=== PATIENT | female | born 1935 ===

== ENCOUNTER 2017-08-18 06:02 | Inpatient (IN) | payer MEDICARE, MEDICAID ==
[2017-08-13 09:33] VITALS: BMI 26.6
[2017-08-18] MEDS ORDERED: Propofol 10 mg/ml Inj (20 ML) ONE (07:43)
[2017-08-18] MEDS ORDERED: ePHEDrine 50 mg/ml Inj ONE (07:44)
[2017-08-18] MEDS ORDERED: Morphine 1 mg/ml preservative-free Inj(Duramorph) ONE ×2 (07:44→10:05)
[2017-08-18] MEDS ORDERED: Succinylcholine 200 mg/10 ml Inj IV ONE (07:45)
[2017-08-18] MEDS ORDERED: Lactated Ringer's 1,000 ML IV ONE ×2 (08:15→10:00)
[2017-08-18] MEDS ORDERED: Sodium Chloride 0.9% 20 ML IV ONE (08:31)
[2017-08-18] MEDS ORDERED: EPINEPHrine 1 mg/ml (1:1000) Inj ONE (08:31)
[2017-08-18] MEDS ORDERED: ceFAZolin IV 1 gm in Dextrose 1 GM/50 ML BAG IVPB ONE ×3 (08:32→21:00)
[2017-08-18] MEDS ORDERED: Bacitracin Ointment 30 GM TUBE ONE (08:32)
[2017-08-18] MEDS ORDERED: Bupivacaine 0.5% Inj(30mL) ONE (08:32)
[2017-08-18] MEDS ORDERED: Lidocaine 1% Inj (20ml) ONE (08:32)
[2017-08-18] MEDS ORDERED: Sevoflurane - Inhalation Anesthetic Liq (250 ml) ONE (09:06)
[2017-08-18] MEDS ORDERED: Rocuronium 10 mg/ml (5 ml) ONE (09:42)
[2017-08-18] MEDS ORDERED: Bacitracin OINT 15GM TOP ONE (11:20)
[2017-08-18] MEDS ORDERED: Bupivacaine 0.5% 50 ML IJ ONE (11:20)
[2017-08-18] MEDS ORDERED: Morphine 1 mg/ml preservative-free Inj(Duramorph) IV ONE (11:20)
[2017-08-18] MEDS ORDERED: EPINEPHrine 1 mg/ml (1:1000) Inj IV ONE (11:20)
--- NOTE | 2017-08-18 11:42 | PCM.SURG1 ---
Surgeon's Initial Post Op Note - Surgeon's Notes Surgeon: Nel Abarca MD Program Arranger: Justin Campuzano MD; Choco Metzger PA-C Type of Anesthesia: General Endo, Spinal Pre-Operative Diagnosis: Right Hip severe Osteoarthritis Operative Findings: see op report Post-Operative Diagnosis: same as pre-op dx Operation Performed: Right total hip replacement Specimen/Specimens Removed: right hip femoral head, soft tissue Estimated Blood Loss: EBL {In ML}: 150 Date of Surgery/Procedure: 08/18/17 Time of Surgery/Procedure: 09:30
[2017-08-18] MEDS ORDERED: Lactated Ringer's 1,000 ML IV SCH (11:45)
[2017-08-18] MEDS ORDERED: Oxycodone/Acetaminophen 5/325 mg Tab PO PRN (11:50)
--- NOTE | 2017-08-18 12:23 | OP ---
PROCEDURE DATE: 08/18/2017 SURGEON: Nel Abarca MD GAS BRAZER: Choco Metzger PA-C PREOPERATIVE DIAGNOSIS: Right hip osteoarthritis. POSTOPERATIVE DIAGNOSIS: Right hip osteoarthritis. PROCEDURE: Right total hip replacement. IMPLANTS SIZE: Pete 54-mm Tritanium cup, a 10-degree polyethylene liner, size 6 high-offset stem, 36-mm ceramic head with +5 neck length. ANESTHESIA TYPE: Spinal and sedation. ESTIMATED BLOOD LOSS: 100 mL. COMPLICATIONS: None. HISTORY: Patient with long standing history of right hip pain refractory of conservative management. X-ray had shown significant loss of joint space. After the failure of extensive conservative management, I had offered the patient the treatment option of total hip replacement. I reviewed the risk and benefits of the surgery with the patient in detail. The risks include, but not limited to bleeding, infection, nerve vessel damage, continuous pain, blood loss, instability, dislocation, iatrogenic fracture, blood clots, need for further surgery, and even . The patient fully understood the risks and benefits and opted to proceed. Patient underwent necessary preoperative medical workup and once medically cleared, was scheduled for the procedure. DESCRIPTION OF PROCEDURE: On the day of the surgery, the patient was admitted to preoperative holding area. A laterality sheet was completed, confirming correct operative site. An informed consent was signed from the patient and the correct operative hip was marked. Patient was brought into the operating room table. She underwent sedation with spinal anesthesia. Afterwards, the patient was placed on the operating room table in lateral decubitus position. All the bony prominences were well padded and an axillary roll was also placed. The hip was draped and prepped in the standard sterile manner. Timeout was completed, confirming correct operative site. We proceeded with Navigation assisted total hip replacement. Two pins were placed in the iliac crest to attach the antenna. Additional checkpoint was placed on the greater trochanter and on top of the acetabular roof. We utilized a standard postero-lateral approach. Using a #10 blade, a skin incision was made. The soft tissue dissection was taken down until the IT band fascia was identified incised along it's fibers. The short external rotators were exposed and excised with the capsule. It was tagged wit heavy sutures preserved for a later repair. Afterwards, the hip was dislocated and proposed neck cut was made. The Acetabulum was exposed using standard retractors. The remnant of torn labrum was excised along with pulvinar. The acetabulum was reamed using motorized reamers to the size that provide adequate depth and coverage. Next, size 54 cup was securely fixed in to the acetabular socket in appropriate version and inclination. A polyethylene liner was secured in to the acetabular cup. The femoral canal was exposed using standard retractors. Using the box chisel, lateral femoral neck was removed. Femoral canal was broached up to size 6 stem, which provide a secure fit and adequate fill of femoral canal. A high-offset trial neck was secured onto the broach. Different trial heads with variable neck lengths were secured onto the trial neck. The hip was reduced and taken through extensive range of motion to test stability, soft tissue tensioning and leg length. It was noted the 36-mm head with +5 neck length provide adequate stability, soft tissue tensioning and length. Next, size 6 stem with high-offset was securely fixed into the femoral canal. Then, 36-mm ceramic head with +5 neck length was secured onto the neck of femoral stem. Hip was reduced and taken through final range of motion to assess for stability, soft tissue tensioning and leg length which was found to be satisfactory. Finally, the wound was copiously irrigated using pulse lavage solution. All loose bodies were removed. The short external rotators were repaired to greater trochanter using drill holes and heavy sutures. IT band fascia was tightly closed using heavy sutures and rest the wound was closed standard manner. Sterile dressing was applied. Patient was transferred to stretcher. Post-op instructions included posterior hip precautions. During this procedure, I was assisted by Choco Metzger PA-C, who assisted in positioning the patient on the operating room table as well as transferring the patient from the operating room table to the recovery room stretcher. In addition, Choco Metzger PA-C assisted me during the actual operative procedure by positioning, protecting critical neurovascular structures, exposure of the joint, and proper positioning of the implants. The presence of Choco Metzger PA-C as my operative assistant quality manager was medically necessary to ensure the utmost safety of the patient in the pre, intra-, and post-operative periods. Imran Rima, MD
--- NOTE | 2017-08-18 17:25 | CP.PCM.HP ---
History of Present Illness - History of Present Illness History of Present Illness: S/P R THR. 81 y/o F, Multiple chronic medical conditions with scheduled admission to [facility] for OR on DOA 08/18/17, had R THR 2nd to O/A , Patient had constant moderate and at times severe pain in that site that has been experienced for years and gradually increased, Pt was taking narcotics pain control, anti inflammatory drugs with some relief. Pt had CT R Hip at [facility] on May 2017, showing degenerative changes R hip. Worsening symptoms: Uncontrolled DM, weakness, anxiety. Aggravated factor: Difficulty to walk. Pt denied: Fever, chills, n/v/d, abdominal pain, CP, SOB, palpitations, numbness, sick contact. Present on Admission - Present on Admission Any Indicators Present on Admission: Yes History of Uncontrolled Diabetes: Yes Review of Systems - Constitutional Constitutional: Other (negative) - EENT Eyes: Other (negative) Ears: Other (negative) Nose/Mouth/Throat: Other (negative) - Cardiovascular Cardiovascular: Other (negative) - Respiratory Respiratory: Other (negative) - Gastrointestinal Gastrointestinal: Other (negative) - Genitourinary Genitourinary: Other (negative) - Musculoskeletal Musculoskeletal: Arthralgias, Back Pain Additional comments: Left Hip pain - Integumentary Integumentary: Other (negative) - Neurological Neurological: Other (negative) - Psychiatric Psychiatric: Anxiety - Endocrine Endocrine: Other (negative) - Hematologic/Lymphatic Hematologic: Other (negative) Past Patient History - Infectious Disease Hx of Infectious Diseases: None - Past Medical History & Family History Past Medical History?: Yes Pertinent Family History: one son OA with Hx of TKR - Past Social History Smoking Status: Never Smoked Alcohol: None Drugs: Denies Home Situation {Lives}: With Family - CARDIAC Hx Cardiac Disorders: Yes Hx Hypercholesterolemia: Yes (Patient can not take Statins due to myalgias.) Hx Hypertension: Yes - PULMONARY Hx Respiratory Disorders: No Other/Comment: Hx Allergic Rhinitis - NEUROLOGICAL HX Cerebrovascular Accident: Yes - HEENT Hx HEENT Problems: Yes Hx Cataracts: Yes - RENAL Hx Chronic Kidney Disease: No Other/Comment: chronic urinary infections - ENDOCRINE/METABOLIC Hx Endocrine Disorders: Yes Hx Diabetes Mellitus Type 2: Yes - HEMATOLOGICAL/ONCOLOGICAL Hx Blood Disorders: No Other/Comment: Arterial embolism L Subclavian L Braquial 06-17-16 ( Patient took Coumadin for 6 months ,then DC) - INTEGUMENTARY Hx Dermatological Problems: No - MUSCULOSKELETAL/RHEUMATOLOGICAL Hx Musculoskeletal Disorders: Yes Hx Arthritis: Yes Hx Back Pain: Yes Hx Osteoarthritis: Yes Hx Unsteady Gait: Yes Other/Comment: R HIP PAIN . MUSCLE WEAKNESS .LIMIT JOINT MOTION - GASTROINTESTINAL Hx Gastrointestinal Disorders: Yes Hx Gastritis: Yes (Hiatus Hernia) - GENITOURINARY/GYNECOLOGICAL Hx Genitourinary Disorders: Yes Hx Urinary Tract Infection: Yes - PSYCHIATRIC Hx Psychophysiologic Disorder: Yes Hx Anxiety: Yes Hx Emotional Abuse: No Hx Physical Abuse: No Hx Substance Use: No - SURGICAL HISTORY Hx Surgeries: Yes Hx Section: Yes (X2) Hx Cholecystectomy: Yes Other/Comment: ARTERIAL EMBOLECTOMY LEFT BRAQUIAL MAY 2016 , BLADDER SURGERY 2008 , REMOVAL CYST RIGHT KNEE - ANESTHESIA Hx Anesthesia: Yes Hx Anesthesia Reactions: No Hx Malignant Hyperthermia: No Has any member of the family had a problem w/ anesthesia?: No Meds Home Medications: Home Medication List Medication Instructions Recorded Confirmed Type Acetaminophen [Tylenol 325mg tab] 325 mg PO Q4 PRN tab 08/20/17 Rx Celecoxib [celeBREX] 100 mg PO Q12 cap 08/20/17 Rx Enoxaparin [Lovenox] 40 mg SC DAILY syr 08/20/17 Rx oxyCODONE [oxyCONTIN Extended 10 mg PO Q12 #10 tab 08/20/17 Rx Release Tab] oxyCODONE/Acetaminophen [Percocet 1 tab PO Q4 PRN #10 tab 08/20/17 Rx 5/325 mg Tab] Allergies/Adverse Reactions: Allergies Allergy/AdvReac Type Severity Reaction Status Date / Time No Known Allergies Allergy Verified 08/20/17 14:39 Physical Exam - Constitutional Appears: No Acute Distress - Head Exam Head Exam: NORMAL INSPECTION Additional comments: L hand weakness - Eye Exam Eye Exam: PERRL - ENT Exam ENT Exam: Normal Exam - Neck Exam Neck exam: Positive for: Normal Inspection - Respiratory Exam Respiratory Exam: NORMAL BREATHING PATTERN - Cardiovascular Exam Cardiovascular Exam: REGULAR RHYTHM, Systolic Murmur (1/6 LSB) - GI/Abdominal Exam GI & Abdominal Exam: Normal Bowel Sounds, Soft Additional comments: Lower midline surgical scar healed, small midline supraumbilical hernia - Extremities Exam Additional comments: R hip dressing in place.,neuromuscular status distal good , area of induration R hand palm with tenderness , L hand weakness - Back Exam Back exam: tenderness (L-S) - Neurological Exam Neurological exam: Alert, CN II-XII Intact, Oriented x3 Additional comments: neuromuscular status distal RLE good, weakness l hand - Psychiatric Exam Psychiatric exam: Anxious - Skin Skin Exam: Warm Results - Vital Signs Recent Vital Signs: Last Vital Signs Temp 97.4 F L 08/18/17 15:19 Pulse 70 08/18/17 15:00 Resp 20 08/18/17 15:19 BP 122/68 08/18/17 15:19 Pulse Ox 92 L 08/18/17 15:19 reviewed J.P. - Labs Result Diagrams: 08/20/17 05:35 08/20/17 07:30 Labs: Laboratory Results - last 24 hr 08/18/17 08/18/17 08/18/17 07:28 07:28 08:13 POC Glucose (mg/dL) 208 H Blood Type Cancelled O POSITIVE Antibody Screen Cancelled Negative Crossmatch See Detail BBK History Checked Cancelled Patient has bt 08/18/17 08/18/17 12:40 15:41 POC Glucose (mg/dL) 257 H 260 H Blood Type Antibody Screen Crossmatch BBK History Checked reviewed J.P. Assessment & Plan (1) Status post total hip replacement, right Status: Acute (2) Uncontrolled type II diabetes mellitus Status: Acute Priority: High (3) Lumbago Status: Chronic Priority: Medium (4) HTN (hypertension) Status: Chronic Priority: Medium (5) History of arterial embolism Status: Chronic Comment: Left upper extremity - Assessment and Plan (Free Text) Plan: F/U Abd/Pelv X-Ray. Continue Oxycodone, Humalog mix 75/25, Levemir and rest of medications, PT,OT eval. - Date & Time Date: 08/18/17 Time: 12:40
[2017-08-18] MEDS: Insulin Lispro Mix 75/25 100 units/ml (HumaLog) 10ml SC SCH (18:06)
[2017-08-18 18:49] LABS: HEMATOCRIT 31.5 % (34.0-47.0); MEAN CELL VOLUME 88.5 fl (81.0-99.0); MEAN CORPUSCULAR HEMOGLOBIN 28.6 pg (27.0-31.0); MEAN CORPUSCULAR HGB CONC 32.3 g/dL (33.0-37.0); RED CELL DISTRIBUTION WIDTH 14.6 % (11.5-14.5); WHITE BLOOD COUNT 12.1 K/uL (4.8-10.8)
[2017-08-18] MEDS: Insulin Detemir 100 Units/ml Inj SC SCH (22:24)
[2017-08-18] MEDS: Insulin Lispro (humaLOG) 100 Units/ml Inj SC SCH (22:24)
[2017-08-18] MEDS: oxyCODONE 10 mg ER Tab (oxyCONTIN) PO SCH (23:57)
[2017-08-19 06:44] LABS: BASO % 0.4 % (0.0-2.0); EOS # 0.1 K/uL (0.0-0.7); EOS % 1.1 % (0.0-4.0); HEMATOCRIT 29.3 % (34.0-47.0); LYMPH # 1.5 K/uL (1.0-4.3); LYMPH % 22.5 % (20.0-40.0); MEAN CELL VOLUME 88.6 fl (81.0-99.0); MEAN CORPUSCULAR HEMOGLOBIN 28.2 pg (27.0-31.0); MEAN CORPUSCULAR HGB CONC 31.9 g/dL (33.0-37.0); MEAN PLATELET VOLUME 7.5 fl (7.2-11.7); MONO # 0.6 K/uL (0.0-0.8); MONO % 9.9 % (0.0-10.0); NEUT # 4.3 K/uL (1.8-7.0); NEUT % 66.1 % (50.0-75.0); RED CELL DISTRIBUTION WIDTH 14.6 % (11.5-14.5); WHITE BLOOD COUNT 6.5 K/uL (4.8-10.8)
[2017-08-19 07:06] LABS: CALCIUM 7.6 mg/dL (8.4-10.2); POTASSIUM 4.6 MMOL/L (3.6-5.0)
--- NOTE | 2017-08-19 07:48 | PQF GENQUE ---
This form is a permanent part of the medical record 08/19/17 Dr. Sarah, H&P with [facility] template includes DM I and DM II. Accuchecks running 208-339. Treated with insulin. Would you please clarify if this is DM I or DM II and whether it is controlled or uncontrolled with Hyperglycemia. Clarification of your documentation is requested to better reflect the severity of illness and intensity of treatment of your patient. Indicators present [] Specify: [] [] Specify: [] [] Specify: [] [] Specify: [] Location in the medical record that reflects the above clinical findings: [] Treatment Provided: [] PHYSICIAN'S RESPONSE Based on your medical judgment of the clinical indicators outlined above please clarify the following: [] Practitioner response [] If unable to determine, please check the box, sign and date. Present On Admission (POA) Indicator: [] Present at the time of admission [] Not present at the time of admission [] Clinically Undetermined In responding to this query, please exercise your independent professional judgment. The fact that a question is asked does not imply that any particular answer is desired or expected. Thank you for your clarification on this documentation. If you have any questions please call:ext [phone] * Thank you, Teodora Renee RN [facility]
[2017-08-19] MEDS: Insulin Lispro (humaLOG) 100 Units/ml Inj SC SCH ×4 (07:50→21:25)
[2017-08-19] MEDS: Insulin Lispro Mix 75/25 100 units/ml (HumaLog) 10ml SC SCH ×3 (08:50→16:37)
[2017-08-19] MEDS: oxyCODONE 10 mg ER Tab (oxyCONTIN) PO SCH ×2 (08:58→21:31)
--- NOTE | 2017-08-19 09:14 | CP.PCM.PN ---
Subjective - Date & Time of Evaluation Date of Evaluation: 08/19/17 Time of Evaluation: 08:30 - Subjective Subjective: S/P RTHR POD#1 Pt seen and examined at bedside, comfortable in bed Pt c/o mild right hip pain Pt denies any SOB, chest pain, N/V/D, numbness/tingling RLE Objective - Vital Signs/Intake and Output Vital Signs (last 24 hours): Temp Pulse Resp BP Pulse Ox 97.5 F L 84 18 110/60 100 08/19/17 07:42 08/19/17 07:42 08/19/17 07:42 08/19/17 07:42 08/19/17 07:42 - Medications Medications: Current Medications Acetaminophen (Tylenol 325mg Tab) 325 mg PO Q4 PRN PRN Reason: pain1-3 Alprazolam (Xanax) 0.5 mg PO TID [facility] Last Admin: 08/19/17 08:58 Dose: 0.5 mg Aspirin (Ecotrin) 81 mg PO DAILY [facility] Last Admin: 08/19/17 08:49 Dose: 81 mg Celecoxib (Celebrex) 100 mg PO Q12 [facility] Last Admin: 08/19/17 08:49 Dose: 100 mg Enoxaparin Sodium (Lovenox) 40 mg SC DAILY [facility] PRN Reason: Protocol Gabapentin (Neurontin) 100 mg PO BID [facility] Last Admin: 08/19/17 08:49 Dose: 100 mg Home Med (Cholecalciferol (Vitamin D3) [Vitamin D3]) 50,000 units PO ASDIR [facility] Lactated Ringer's (Lactated Ringer's) 1,000 mls @ 100 mls/hr IV .Q10H [facility] Last Admin: 08/18/17 21:34 Dose: 100 mls/hr Insulin Detemir (Levemir) 12 units SC HS [facility] Last Admin: 08/18/17 22:24 Dose: 12 units Insulin Human Lispro (Humalog) 0 units SC ACHS [facility] PRN Reason: Protocol Last Admin: 08/19/17 07:50 Dose: 8 units Insulin Lispro Protam/Lispro Human (Humalog Mix 75/25) 15 units SC TID [facility] Last Admin: 08/19/17 08:50 Dose: 15 units Ketorolac Tromethamine (Toradol) 15 mg IM Q8 [facility] Stop: 08/20/17 09:01 Last Admin: 08/19/17 08:51 Dose: 15 mg Oxycodone HCl (Oxycontin Extended Release Tab) 10 mg PO Q12 [facility] Stop: 09/01/17 21:01 Last Admin: 08/19/17 08:58 Dose: 10 mg Oxycodone/Acetaminophen (Percocet 5/325 Mg Tab) 1 tab PO Q4 PRN PRN Reason: pain4-6 Stop: 08/21/17 11:51 - Labs Labs: 08/19/17 06:05 08/19/17 06:05 - Constitutional Appears: Well, No Acute Distress - Respiratory Exam Respiratory Exam: Clear to Ausculation Bilateral, NORMAL BREATHING PATTERN - Cardiovascular Exam Cardiovascular Exam: REGULAR RHYTHM, RRR - Extremities Exam Additional comments: Right hip: dressing C/D/I Calves soft and nontender b/l N/V intact distally No foot drop Distal pulses wnl Assessment and Plan - Assessment and Plan (Free Text) Assessment: 81 yo F s/p RTHR POD#1 Plan: Pain Control DVT ppx Incentive Spirometer PT/OT WBAT F/U labs Continue current managenment
--- NOTE | 2017-08-19 09:53 | RAD ---
PROCEDURE: Right Hip Radiographs. HISTORY: s/p RTHR COMPARISON: Right hip radiographs dated 08/10/2017. FINDINGS: The patient is status post total right hip arthroplasty with prosthetic components seen in good alignment. A small amount of expected air and fluid is seen adjacent to the surgical bed. Surgical hayley are present superficially. There is stable narrowing of the left hip with subchondral sclerosis, cystic change and osteophytosis. The sacroiliac joints are degenerative. Evaluation the sacrum is limited by overlying bowel gas and stool. The ilioischial and iliopectineal lines are smooth. The symphysis pubis is mildly degenerative. A calcified uterine fibroid is seen centrally. IMPRESSION: Status post right hip arthroplasty.
[2017-08-19] MEDS ORDERED: Sodium Chloride 0.45% 1,000 ML IV SCH (14:00)
--- NOTE | 2017-08-19 14:59 | CP.PCM.PN ---
Subjective - Date & Time of Evaluation Date of Evaluation: 08/19/17 Time of Evaluation: 11:20 - Subjective Subjective: F/U R THR PO D # 1 : Mild Post -Surgical Pain, R Hip, Patient on pain medication Objective - Vital Signs/Intake and Output Vital Signs (last 24 hours): Temp Pulse Resp BP Pulse Ox 97.5 F L 97 H 20 137/68 100 08/19/17 09:00 08/19/17 11:17 08/19/17 09:00 08/19/17 09:00 08/19/17 11:17 - Medications Medications: Current Medications Acetaminophen (Tylenol 325mg Tab) 325 mg PO Q4 PRN PRN Reason: pain1-3 Alprazolam (Xanax) 0.5 mg PO TID [facility] Last Admin: 08/19/17 08:58 Dose: 0.5 mg Aspirin (Ecotrin) 81 mg PO DAILY [facility] Last Admin: 08/19/17 08:49 Dose: 81 mg Celecoxib (Celebrex) 100 mg PO Q12 [facility] Last Admin: 08/19/17 08:49 Dose: 100 mg Enoxaparin Sodium (Lovenox) 40 mg SC DAILY [facility] PRN Reason: Protocol Gabapentin (Neurontin) 100 mg PO BID [facility] Last Admin: 08/19/17 08:49 Dose: 100 mg Home Med (Cholecalciferol (Vitamin D3) [Vitamin D3]) 50,000 units PO ASDIR [facility] Sodium Chloride (Sodium Chloride 0.45%) 1,000 mls @ 60 mls/hr IV .[id number] [facility] Stop: 08/20/17 13:57 Insulin Detemir (Levemir) 12 units SC HS [facility] Last Admin: 08/18/17 22:24 Dose: 12 units Insulin Human Lispro (Humalog) 0 units SC ACHS [facility] PRN Reason: Protocol Last Admin: 08/19/17 11:01 Dose: 12 units Insulin Lispro Protam/Lispro Human (Humalog Mix 75/25) 15 units SC TID [facility] Last Admin: 08/19/17 12:10 Dose: 15 units Ketorolac Tromethamine (Toradol) 15 mg IM Q8 [facility] Stop: 08/20/17 09:01 Last Admin: 08/19/17 08:51 Dose: 15 mg Oxycodone HCl (Oxycontin Extended Release Tab) 10 mg PO Q12 [facility] Stop: 09/01/17 21:01 Last Admin: 08/19/17 08:58 Dose: 10 mg Oxycodone/Acetaminophen (Percocet 5/325 Mg Tab) 1 tab PO Q4 PRN PRN Reason: pain4-6 Stop: 08/21/17 11:51 - Labs Labs: 08/19/17 06:05 08/19/17 06:05 - Constitutional Appears: No Acute Distress - Head Exam Head Exam: NORMAL INSPECTION - Eye Exam Eye Exam: PERRL - ENT Exam ENT Exam: Normal Exam - Neck Exam Neck Exam: Normal Inspection - Respiratory Exam Respiratory Exam: NORMAL BREATHING PATTERN - Cardiovascular Exam Cardiovascular Exam: REGULAR RHYTHM - GI/Abdominal Exam GI & Abdominal Exam: Soft, Normal Bowel Sounds Additional comments: Lower midline surgical scar healed. - Extremities Exam Additional comments: R hip dressing in place , mild tenderness , neuromuscular status distal good L hand area of induration R hand palm with tenderness - Back Exam Back Exam: tenderness (mild L-S) - Neurological Exam Neurological Exam: Alert, Oriented x3 Additional comments: neuromuscular status RLE good, weakness L hand - Psychiatric Exam Psychiatric exam: Anxious - Skin Skin Exam: Warm Assessment and Plan (1) Status post total hip replacement, left Status: Acute (2) Uncontrolled type II diabetes mellitus Status: Acute (3) HTN (hypertension) Status: Chronic (4) Lumbago Status: Chronic (5) Vitamin D deficiency Status: Acute (6) History of arterial embolism Status: Chronic - Assessment and Plan (Free Text) Plan: Continue current treatment , Oxycodone , Percocet , Insulin and rest of treatment , pain and BS control , PT
[2017-08-19] MEDS: Insulin Detemir 100 Units/ml Inj SC SCH (21:38)
[2017-08-19] MEDS: Enoxaparin 40 mg Syringe SC SCH (21:39)
[2017-08-20] MEDS ORDERED: Oxycodone/Acetaminophen 5/325 mg Tab PO ONE (01:04)
[2017-08-20 07:41] LABS: BASO % 0.3 % (0.0-2.0); EOS % 0.1 % (0.0-4.0); HEMATOCRIT 32.2 % (34.0-47.0); LYMPH # 1.2 K/uL (1.0-4.3); LYMPH % 10.7 % (20.0-40.0); MEAN CELL VOLUME 89.3 fl (81.0-99.0); MEAN CORPUSCULAR HEMOGLOBIN 27.9 pg (27.0-31.0); MEAN CORPUSCULAR HGB CONC 31.3 g/dL (33.0-37.0); MEAN PLATELET VOLUME 8.5 fl (7.2-11.7); MONO # 0.8 K/uL (0.0-0.8); MONO % 6.9 % (0.0-10.0); RED CELL DISTRIBUTION WIDTH 14.8 % (11.5-14.5)
[2017-08-20 07:48] VITALS: BP 100/58; PULSE 80; RESP 20; TEMP 98.2; O2SAT 98
[2017-08-20 08:27] LABS: CALCIUM 7.6 mg/dL (8.4-10.2); POTASSIUM 4.9 MMOL/L (3.6-5.0)
[2017-08-20] MEDS: Insulin Lispro (humaLOG) 100 Units/ml Inj SC SCH ×2 (09:14→12:00)
[2017-08-20] MEDS: Insulin Lispro Mix 75/25 100 units/ml (HumaLog) 10ml SC SCH ×3 (09:15→13:00)
[2017-08-20] MEDS: Enoxaparin 40 mg Syringe SC SCH (09:18)
[2017-08-20] MEDS: oxyCODONE 10 mg ER Tab (oxyCONTIN) PO SCH (09:34)
[2017-08-20] MEDS ORDERED: Sodium Chloride 0.45% 1,000 ML IV SCH (11:53)
--- NOTE | 2017-08-20 16:25 | CP.PCM.PN ---
Subjective - Date & Time of Evaluation Date of Evaluation: 08/20/17 Time of Evaluation: 12:20 - Subjective Subjective: F/U R THR. No AD , minimal pain R Hip with pain medication Objective - Vital Signs/Intake and Output Vital Signs (last 24 hours): Temp Pulse Resp BP Pulse Ox 98.2 F 80 20 100/58 L 98 08/20/17 07:47 08/20/17 07:47 08/20/17 07:47 08/20/17 07:47 08/20/17 07:47 - Labs Labs: 08/20/17 05:35 08/20/17 07:30 - Constitutional Appears: No Acute Distress - Head Exam Head Exam: NORMAL INSPECTION - Eye Exam Eye Exam: PERRL - ENT Exam ENT Exam: Normal Exam - Neck Exam Neck Exam: Normal Inspection - Respiratory Exam Respiratory Exam: NORMAL BREATHING PATTERN - Cardiovascular Exam Cardiovascular Exam: REGULAR RHYTHM - GI/Abdominal Exam GI & Abdominal Exam: Soft, Normal Bowel Sounds Additional comments: Lower midline surgical scar healed. - Extremities Exam Additional comments: R hip dressing in place, neuromuscular distal status good , area of induration R hand palm with tenderness , L hand weakness - Back Exam Back Exam: tenderness (L-S) - Neurological Exam Neurological Exam: Alert, Oriented x3 Additional comments: neurological satus distal RLE good, weakness L hand - Psychiatric Exam Psychiatric exam: Anxious - Skin Skin Exam: Warm Assessment and Plan (1) Status post total hip replacement, right Status: Acute (2) Uncontrolled type II diabetes mellitus Status: Acute (3) HTN (hypertension) Status: Chronic (4) Lumbago Status: Chronic (5) Vitamin D deficiency Status: Acute (6) History of arterial embolism Status: Chronic - Assessment and Plan (Free Text) Plan: Improved , stable to be DD to TCU for continue PT, see inst/med sheet, I will follow Patient in TCU.
[2017-08-25] MEDS ORDERED: Ergocalciferol 50,000 Intl Units Cap PO SCH (16:30)
== END 2017-08-20 15:06 | DRG 470 ==
LOC: H.OPSURG 06:02 → H.MEDSURG1 11:56
PROVIDERS: ADMIT Internal Medicine Pulmonary Disease; ATTEND Internal Medicine Pulmonary Disease
PROC: 0SR903Z Replacement of Right Hip Joint with Ceramic Synthetic Substitute, Open Approach (ICD-10-PCS; principal; 2017-08-18 08:45)
DX: M16.11 Unilateral primary osteoarthritis, right hip (principal); E11.65 Type 2 diabetes mellitus with hyperglycemia; E55.9 Vitamin D deficiency, unspecified; I10 Essential (primary) hypertension; E78.00 Pure hypercholesterolemia, unspecified; F41.9 Anxiety disorder, unspecified; M54.5 Low back pain; R53.1 Weakness

== ENCOUNTER 2017-08-20 11:58 | Inpatient (IN) | payer OTHER, MEDICAID ==
[2017-08-13 09:33] VITALS: BMI 26.6
[2017-08-20] MEDS ORDERED: Oxycodone/Acetaminophen 5/325 mg Tab PO PRN (15:30)
[2017-08-20] MEDS: Ergocalciferol 50,000 Intl Units Cap PO SCH (16:42)
[2017-08-20] MEDS: Insulin Regular 100 units/ml SC SCH ×2 (16:44→22:15)
[2017-08-20] MEDS: Insulin Lispro Mix 75/25 100 units/ml (HumaLog) 10ml SC SCH (16:52)
[2017-08-20] MEDS: oxyCODONE 10 mg ER Tab (oxyCONTIN) PO SCH (21:40)
[2017-08-20] MEDS ORDERED: Insulin Detemir 100 Units/ml Inj SC SCH (22:00)
[2017-08-21] MEDS: Insulin Regular 100 units/ml SC SCH ×4 (07:09→21:54)
[2017-08-21] MEDS: Enoxaparin 40 mg Syringe SC SCH (09:01)
[2017-08-21] MEDS: oxyCODONE 10 mg ER Tab (oxyCONTIN) PO SCH (09:02)
[2017-08-21] MEDS: Insulin Lispro Mix 75/25 100 units/ml (HumaLog) 10ml SC SCH ×3 (10:00→16:15)
--- NOTE | 2017-08-21 17:15 | CP.PCM.HP ---
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 At present patient feeling well, denies any pain or discomfort , denies chest pain SOB. She appears slightly confused . 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 Keara Harden ; 14 point review of system negative except above Present on Admission - Present on Admission Any Indicators Present on Admission: No History of DVT/PE: Yes Review of Systems - Review of Systems All systems: reviewed and no additional remarkable complaints except Past Patient History - Infectious Disease Hx of Infectious Diseases: None - Tetanus Immunizations Tetanus Immunization: Unknown - Past Medical History & Family History Past Medical History?: Yes Past Family History: Reviewed and not pertinent - Past Social History Smoking Status: Never Smoked Chewing Tobacco Use: No Cigar Use: No Alcohol: None Drugs: Denies Home Situation {Lives}: With Family Domestic Violence: Negative - CARDIAC Hx Cardiac Disorders: Yes Hx Hypercholesterolemia: Yes (Patient can not take Statins due to myalgias.) Hx Hypertension: Yes - PULMONARY Hx Respiratory Disorders: No Other/Comment: Hx Allergic Rhinitis - NEUROLOGICAL HX Cerebrovascular Accident: Yes - HEENT Hx HEENT Problems: Yes Hx Cataracts: Yes - RENAL Hx Chronic Kidney Disease: No Other/Comment: chronic urinary infections - ENDOCRINE/METABOLIC Hx Endocrine Disorders: Yes Hx Diabetes Mellitus Type 2: Yes - HEMATOLOGICAL/ONCOLOGICAL Hx Blood Disorders: No Other/Comment: 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 MUSCLE WEAKNESS .LIMIT JOINT MOTION - GASTROINTESTINAL Hx Gastrointestinal Disorders: Yes Hx Gastritis: Yes (Hiatus Hernia) - GENITOURINARY/GYNECOLOGICAL Hx Genitourinary Disorders: Yes Hx Urinary Tract Infection: Yes - PSYCHIATRIC Hx Psychophysiologic Disorder: Yes Hx Anxiety: Yes Hx Emotional Abuse: No Hx Physical Abuse: No Hx Substance Use: No - SURGICAL HISTORY Hx Section: Yes Hx Joint Replacement: Yes (right total hip replacement 08/17/17) - ANESTHESIA Hx Anesthesia: Yes Hx Anesthesia Reactions: No Hx Malignant Hyperthermia: No Meds Allergies/Adverse Reactions: Allergies Allergy/AdvReac Type Severity Reaction Status Date / Time No Known Allergies Allergy Verified 08/20/17 14:39 Physical Exam - Constitutional Appears: Non-toxic, No Acute Distress, Confused, Other (obese ) - Head Exam Head Exam: ATRAUMATIC, NORMAL INSPECTION, NORMOCEPHALIC - Eye Exam Eye Exam: PERRL - ENT Exam ENT Exam: Mucous Membranes Moist, Normal Exam - Neck Exam Neck exam: Positive for: Full Rom, Normal Inspection - Respiratory Exam Respiratory Exam: Clear to Auscultation Bilateral, NORMAL BREATHING PATTERN. absent: Rales, Rhonchi, Wheezes - Cardiovascular Exam Cardiovascular Exam: REGULAR RHYTHM, RRR, +S1, +S2. absent: JVD - GI/Abdominal Exam GI & Abdominal Exam: Normal Bowel Sounds, Soft. absent: Distended, Guarding, Rebound, Tenderness - Rectal Exam Rectal Exam: Deferred - Extremities Exam Extremities exam: Positive for: full ROM, normal capillary refill, normal inspection, pedal pulses present. Negative for: pedal edema Additional comments: right hip surgical incision with dressing in place - Neurological Exam Neurological exam: Alert, CN II-XII Intact Additional comments: LUE weakness - Psychiatric Exam Psychiatric exam: Normal Affect, Normal Mood - Skin Skin Exam: Pallor, Warm Results - Vital Signs Recent Vital Signs: Last Vital Signs Temp 99.9 F H 08/21/17 15:56 Pulse 102 H 08/21/17 15:56 Resp 20 08/21/17 15:56 BP 125/61 08/21/17 15:56 Pulse Ox 91 L 08/21/17 15:56 - Labs Labs: Laboratory Results - last 24 hr 08/20/17 08/21/17 08/21/17 20:38 03:01 07:08 POC Glucose (mg/dL) 330 H 313 H 317 H 08/21/17 08/21/17 11:12 16:21 POC Glucose (mg/dL) 281 H 298 H Assessment & Plan - Assessment and Plan (Free Text) Assessment: 81 y/o male with PMH HTN, , 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 At present patient feeling well, denies any pain or discomfort , denies chest pain SOB. She appears slightly confused . 1. Right Hip Osteoarthritis s/p THR Admit to TCU PT / OT consult pain is controlled. will d/c narcotics since patient appears somewhat confused Lovenox for DVT prophylaxis 2. MITCH creatinine trending up post op Most likely volume depleted Start IVF repeat BMP 3. Acute blood Loss anemia from recent surgery Hgb dropped from 13 -- 10 Monitor for now 4. Uncontrolled DM Continue accuchecks, Insulin coverage , diabetic diet resume levemir and Novolog check hgb A1C 5. HTN controlled without meds 6. History CVA with LUE weakness on ASA pateint can nottake statin due to myalgias 7.Altered Mental status / Confusion Most likely secondary to narcotis D/c all narcotics Start Tylenol 8. Overweight BMI 30 9. DVt prophylaxis lovenox
[2017-08-21] MEDS: Sodium Chloride 0.9% 1,000 ML IV SCH (19:44)
[2017-08-21] MEDS: Insulin Detemir 100 Units/ml Inj SC SCH (21:52)
[2017-08-22] MEDS: Sodium Chloride 0.9% 1,000 ML IV SCH ×2 (05:29→17:22)
[2017-08-22] MEDS: Insulin Regular 100 units/ml SC SCH ×4 (07:08→21:29)
[2017-08-22] MEDS: Insulin Lispro Mix 75/25 100 units/ml (HumaLog) 10ml SC SCH ×3 (09:58→17:19)
[2017-08-22] MEDS: Enoxaparin 40 mg Syringe SC SCH (10:00)
[2017-08-22] MEDS: Insulin Detemir 100 Units/ml Inj SC SCH (21:32)
[2017-08-23] MEDS: Insulin Regular 100 units/ml SC SCH ×4 (06:44→21:59)
[2017-08-23 07:47] LABS: HEMOGLOBIN 7.7 g/dL (12.0-16.0); MEAN CELL VOLUME 88.5 fl (81.0-99.0); MEAN CORPUSCULAR HEMOGLOBIN 28.3 pg (27.0-31.0); RBC 2.73 Mil/uL (3.80-5.20); RED CELL DISTRIBUTION WIDTH 14.8 % (11.5-14.5); WHITE BLOOD COUNT 14.5 K/uL (4.8-10.8)
[2017-08-23 08:20] LABS: CALCIUM 7.5 mg/dL (8.4-10.2)
[2017-08-23] MEDS: Insulin Lispro Mix 75/25 100 units/ml (HumaLog) 10ml SC SCH ×3 (08:53→17:10)
[2017-08-23] MEDS: Enoxaparin 40 mg Syringe SC SCH (10:06)
[2017-08-23 17:03] LABS: SQUAMOUS EPITHIAL 8 /hpf (0-5); URINE BACTERIA RARE (<OCC); URINE BILIRUBIN NEGATIVE (NEGATIVE); URINE BLOOD SMALL (NEGATIVE); URINE CLARITY CLOUDY (Clear); URINE COLOR YELLOW (YELLOW); URINE GLUCOSE (UA) NEG (Normal); URINE LEUKOCYTE ESTERASE LARGE Leu/uL (Negative); URINE NITRATE NEGATIVE (NEGATIVE); URINE PROTEIN NEGATIVE (NEGATIVE); URINE UROBILINOGEN 0.2-1.0 mg/dL (0.2-1.0)
[2017-08-23] MEDS: Insulin Detemir 100 Units/ml Inj SC SCH ×2 (21:50→22:00)
[2017-08-24] MEDS: Insulin Regular 100 units/ml SC SCH ×4 (06:54→21:33)
[2017-08-24] MEDS: Insulin Lispro Mix 75/25 100 units/ml (HumaLog) 10ml SC SCH ×3 (08:11→16:58)
[2017-08-24] MEDS: Enoxaparin 40 mg Syringe SC SCH (09:28)
[2017-08-24 10:20] LABS: HEMOGLOBIN 8.4 g/dL (12.0-16.0); MEAN CELL VOLUME 88.2 fl (81.0-99.0); MEAN CORPUSCULAR HEMOGLOBIN 28.2 pg (27.0-31.0); MEAN CORPUSCULAR HGB CONC 31.9 g/dL (33.0-37.0); RBC 2.99 Mil/uL (3.80-5.20); RED CELL DISTRIBUTION WIDTH 15.1 % (11.5-14.5); WHITE BLOOD COUNT 13.1 K/uL (4.8-10.8)
[2017-08-24] MEDS: Alum-Mag Hydrox-Simethicone Susp (30 mL) PO PRN (12:42)
[2017-08-24] MEDS: Insulin Detemir 100 Units/ml Inj SC SCH (21:28)
[2017-08-25] MEDS: Insulin Regular 100 units/ml SC SCH ×4 (06:51→21:58)
[2017-08-25] MEDS: Insulin Lispro Mix 75/25 100 units/ml (HumaLog) 10ml SC SCH ×3 (08:30→17:43)
[2017-08-25] MEDS: Enoxaparin 40 mg Syringe SC SCH (08:30)
[2017-08-25] MEDS: Alum-Mag Hydrox-Simethicone Susp (30 mL) PO PRN ×2 (11:28→17:47)
--- NOTE | 2017-08-25 15:18 | CP.PCM.PN ---
Subjective - Date & Time of Evaluation Date of Evaluation: 08/25/17 Time of Evaluation: 14:00 - Subjective Subjective: Patient was seen and examined sitting in her wheelchair in her room. She has no complaints today other than some frustration at her chronic illnesses. She is saying that PT/OT are helping her. No acute events as per nursing staff. Objective - Vital Signs/Intake and Output Vital Signs (last 24 hours): Temp Pulse Resp BP Pulse Ox 97.5 F L 82 20 158/51 H 99 08/25/17 08:21 08/25/17 08:21 08/25/17 08:21 08/25/17 08:21 08/25/17 08:21 - Medications Medications: Current Medications Acetaminophen (Tylenol 325mg Tab) 325 mg PO Q4 PRN PRN Reason: pain1-3 Last Admin: 08/23/17 04:42 Dose: 325 mg Al Hydrox/Mg Hydrox/Simethicone (Maalox Plus 30 Ml) 30 ml PO Q6 PRN PRN Reason: Indigestion / Heartburn Last Admin: 08/25/17 11:28 Dose: 30 ml Alprazolam (Xanax) 0.5 mg PO HS [facility] Last Admin: 08/24/17 21:25 Dose: 0.5 mg Aspirin (Ecotrin) 81 mg PO DAILY [facility] Last Admin: 08/25/17 08:32 Dose: 81 mg Celecoxib (Celebrex) 100 mg PO Q12 [facility] Last Admin: 08/25/17 08:30 Dose: 100 mg Enoxaparin Sodium (Lovenox) 40 mg SC DAILY [facility] PRN Reason: Protocol Last Admin: 08/25/17 08:30 Dose: 40 mg Ergocalciferol (Drisdol 50,000 Intl Units Cap) 1 cap PO Q7D [facility] Last Admin: 08/20/17 16:42 Dose: Not Given Famotidine (Pepcid) 20 mg PO DAILY [facility] Last Admin: 08/25/17 08:30 Dose: 20 mg Gabapentin (Neurontin) 100 mg PO BID [facility] Last Admin: 08/25/17 08:30 Dose: 100 mg Insulin Detemir (Levemir) 18 units SC HS [facility] Last Admin: 08/24/17 21:28 Dose: 18 units Insulin Human Regular (Humulin R) 0 units SC ACHS [facility] PRN Reason: Protocol Last Admin: 08/25/17 11:28 Dose: 4 units Insulin Lispro Protam/Lispro Human (Humalog Mix 75/25) 18 units SC TID [facility] Last Admin: 08/25/17 12:54 Dose: 18 units Tramadol HCl (Ultram) 50 mg PO Q6 PRN PRN Reason: Pain, severe (8-10) - Labs Labs: 08/24/17 10:00 08/23/17 05:30 - Additional Findings Additional findings: Physical exam: Constitutional- cooperative, awake, alert. No apparent distress. Head- NCAT, PERRL. Eye- PERRL, EOMI ENT- normal exam, MMM. Poor dentition Neck- normal inspection, supple, no JVD Respiratory- CTAB, no wheezes rales rhonchi Cardiovascular- RRR, +S1, +S2 no MRG GI/Abdominal- normal bowel sounds, soft, no mass, no hsm Skin- Stage 2 sacral decubitis ulceration. Warm, dry Extremities Exam- normal capillary refill, normal inspection Neurological Exam- alert, awake, oriented Psych- Depressed mood, normal effect Assessment and Plan - Assessment and Plan (Free Text) Plan: Assessment: 81 y/o male with PMH HTN, , thromboemolic disease to E,IDDM, OA, history of CVA with LUE weakness had recent right total hip replacement ad transferred to TCU for physical therapy. At present patient feeling well, denies any pain or discomfort , denies chest pain SOB. She appears slightly confused . 1. Right Hip Osteoarthritis s/p THR Continued therapy in TCU PT / OT consult pain is controlled. Confusion is gone since narcotics discontinued (other than tramadol) Lovenox for DVT prophylaxis 2. MITCH- resolved creatintine stable after IV fluids Encourage PO hydration repeat labs in AM 3. Acute blood Loss anemia from recent surgery Hg stablized at 8.4 on 08/24 Monitor 4. Uncontrolled DM Continue accuchecks, Insulin coverage , diabetic diet resume levemir and Novolog Increased Lispro mix from 18 to 20 units SC TID HGA1C 9.0 5. HTN - Adding back Olmesartan 20 mg po daily - Adding Coreg 3.125 mg po BID 6. History CVA with LUE weakness on ASA pateint can nottake statin due to myalgias 7.Altered Mental status / Confusion Most likely secondary to narcotis D/c all narcotics Start Tylenol 8. Overweight BMI 30 9. DVt prophylaxis lovenox
[2017-08-25] MEDS: Insulin Detemir 100 Units/ml Inj SC SCH (21:57)
[2017-08-26] MEDS: Insulin Regular 100 units/ml SC SCH ×4 (06:35→21:17)
[2017-08-26 06:57] LABS: HEMOGLOBIN 8.4 g/dL (12.0-16.0); MEAN CELL VOLUME 88.2 fl (81.0-99.0); MEAN CORPUSCULAR HEMOGLOBIN 28.5 pg (27.0-31.0); MEAN CORPUSCULAR HGB CONC 32.3 g/dL (33.0-37.0); RBC 2.95 Mil/uL (3.80-5.20); WHITE BLOOD COUNT 12.6 K/uL (4.8-10.8)
[2017-08-26 07:12] LABS: BLOOD UREA NITROGEN 21 mg/dl (7-17); GFR AFRICAN-AMERICAN > 60; GFR NON-AFRICAN AMERICAN > 60
[2017-08-26] MEDS: Enoxaparin 40 mg Syringe SC SCH (09:46)
[2017-08-26] MEDS: Insulin Lispro Mix 75/25 100 units/ml (HumaLog) 10ml SC SCH ×3 (09:46→16:29)
[2017-08-26] MEDS: Insulin Detemir 100 Units/ml Inj SC SCH (21:22)
[2017-08-27] MEDS: Insulin Regular 100 units/ml SC SCH ×4 (06:53→21:27)
[2017-08-27 08:22] VITALS: RESP 20
[2017-08-27] MEDS: Insulin Lispro Mix 75/25 100 units/ml (HumaLog) 10ml SC SCH ×3 (08:36→16:51)
[2017-08-27] MEDS: Enoxaparin 40 mg Syringe SC SCH (08:37)
--- NOTE | 2017-08-27 14:25 | CP.PCM.PN ---
Subjective - Date & Time of Evaluation Date of Evaluation: 08/27/17 Time of Evaluation: 14:00 - Subjective Subjective: Patient was seen and examined getting dressed with assistance in her wheelchair. She states she is doing well with therapies. Complaining of some mild right lower leg swelling but denies any pain or any other complaints. Objective - Vital Signs/Intake and Output Vital Signs (last 24 hours): Temp Pulse Resp BP Pulse Ox 97.8 F 77 20 140/54 L 98 08/27/17 08:22 08/27/17 08:36 08/27/17 08:22 08/27/17 08:36 08/27/17 08:22 - Medications Medications: Current Medications Acetaminophen (Tylenol 325mg Tab) 325 mg PO Q4 PRN PRN Reason: pain1-3 Last Admin: 08/23/17 04:42 Dose: 325 mg Al Hydrox/Mg Hydrox/Simethicone (Maalox Plus 30 Ml) 30 ml PO Q6 PRN PRN Reason: Indigestion / Heartburn Last Admin: 08/25/17 17:47 Dose: 30 ml Alprazolam (Xanax) 0.5 mg PO HS [facility] Last Admin: 08/26/17 21:15 Dose: 0.5 mg Aspirin (Ecotrin) 81 mg PO DAILY [facility] Last Admin: 08/27/17 08:37 Dose: 81 mg Carvedilol (Coreg) 3.125 mg PO BID [facility] Last Admin: 08/27/17 08:36 Dose: 3.125 mg Celecoxib (Celebrex) 100 mg PO Q12 [facility] Last Admin: 08/27/17 08:37 Dose: 100 mg Dimethicone (Proshield Plus Skin Protectant) 1 applic TOP Q8 [facility] Enoxaparin Sodium (Lovenox) 40 mg SC DAILY [facility] PRN Reason: Protocol Last Admin: 08/27/17 08:37 Dose: 40 mg Ergocalciferol (Drisdol 50,000 Intl Units Cap) 1 cap PO Q7D [facility] Last Admin: 08/20/17 16:42 Dose: Not Given Famotidine (Pepcid) 20 mg PO DAILY [facility] Last Admin: 08/27/17 08:37 Dose: 20 mg Gabapentin (Neurontin) 100 mg PO BID [facility] Last Admin: 08/27/17 08:37 Dose: 100 mg Insulin Detemir (Levemir) 18 units SC HS [facility] Last Admin: 08/26/17 21:22 Dose: 18 units Insulin Human Regular (Humulin R) 0 units SC ACHS [facility] PRN Reason: Protocol Last Admin: 08/27/17 11:06 Dose: Not Given Insulin Lispro Protam/Lispro Human (Humalog Mix 75/25) 22 units SC TID [facility] Losartan Potassium (Cozaar) 50 mg PO DAILY [facility] Last Admin: 08/27/17 08:36 Dose: 50 mg Tramadol HCl (Ultram) 50 mg PO Q6 PRN PRN Reason: Pain, severe (8-10) - Labs Labs: 08/26/17 06:00 08/26/17 06:00 - Additional Findings Additional findings: Physical exam: Constitutional- cooperative, awake, alert. No apparent distress. Head- NCAT, PERRL. Eye- PERRL, EOMI ENT- normal exam, MMM. Poor dentition Neck- normal inspection, supple, no JVD Respiratory- CTAB, no wheezes rales rhonchi Cardiovascular- RRR, +S1, +S2 no MRG GI/Abdominal- normal bowel sounds, soft, no mass, no hsm Skin- + 1 pitting edema to right leg. No tenderness. Tom's sign (-). Stage 2 sacral decubitis ulceration. Warm, dry Extremities Exam- normal capillary refill, normal inspection Neurological Exam- alert, awake, oriented Psych- Depressed mood, normal effect Assessment and Plan - Assessment and Plan (Free Text) Plan: Assessment: 81 y/o male with PMH HTN, , thromboemolic disease to E,IDDM, OA, history of CVA with LUE weakness had recent right total hip replacement ad transferred to TCU for physical therapy. At present patient feeling well, denies any pain or discomfort , denies chest pain SOB. She appears slightly confused . 1. Right Hip Osteoarthritis s/p THR Continued therapy in TCU PT / OT consult pain is controlled. Confusion is gone since narcotics discontinued (other than tramadol) +1 right leg edema likely 2/2 postop. if continued swelling and/or pain will consider right Le doppler to r/o DVT Lovenox for DVT prophylaxis 2. MITCH- resolved creatintine stable after IV fluids Encourage PO hydration repeat labs in AM 3. Acute blood Loss anemia from recent surgery Hg stablized at 8.4 on 08/24 Monitor 4. Uncontrolled DM Continue accuchecks, Insulin coverage , diabetic diet resume levemir and Novolog Increased Lispro mix from 18 to 20 units SC TID HGA1C 9.0 5. HTN - Adding back Olmesartan 20 mg po daily - Adding Coreg 3.125 mg po BID 6. History CVA with LUE weakness on ASA pateint can nottake statin due to myalgias 7.Altered Mental status / Confusion Most likely secondary to narcotis D/c all narcotics Start Tylenol 8. Overweight BMI 30 9. DVt prophylaxis lovenox
[2017-08-27] MEDS: Ergocalciferol 50,000 Intl Units Cap PO SCH (15:08)
[2017-08-27] MEDS: Proshield Plus GEL TOP SCH (16:50)
[2017-08-27] MEDS: Insulin Detemir 100 Units/ml Inj SC SCH (21:28)
[2017-08-28] MEDS: Proshield Plus GEL TOP SCH ×3 (02:10→17:41)
[2017-08-28] MEDS: Insulin Regular 100 units/ml SC SCH ×4 (06:45→21:32)
[2017-08-28] MEDS: Enoxaparin 40 mg Syringe SC SCH (09:10)
[2017-08-28] MEDS: Insulin Lispro Mix 75/25 100 units/ml (HumaLog) 10ml SC SCH ×3 (09:11→17:29)
[2017-08-28] MEDS ORDERED: Bismuth Subsalicylate 262 mg Chew Tab PO PRN (10:27)
[2017-08-28] MEDS: Insulin Detemir 100 Units/ml Inj SC SCH (21:45)
[2017-08-29] MEDS: Proshield Plus GEL TOP SCH ×3 (02:00→17:06)
[2017-08-29] MEDS: Insulin Regular 100 units/ml SC SCH ×4 (06:37→22:21)
[2017-08-29] MEDS: Enoxaparin 40 mg Syringe SC SCH (08:49)
[2017-08-29] MEDS: Insulin Lispro Mix 75/25 100 units/ml (HumaLog) 10ml SC SCH ×3 (08:50→17:02)
[2017-08-29] MEDS: Insulin Detemir 100 Units/ml Inj SC SCH (22:22)
[2017-08-30] MEDS: Proshield Plus GEL TOP SCH ×3 (01:32→16:46)
[2017-08-30] MEDS: Insulin Regular 100 units/ml SC SCH ×4 (07:41→22:11)
[2017-08-30] MEDS: Insulin Lispro Mix 75/25 100 units/ml (HumaLog) 10ml SC SCH ×3 (09:37→17:12)
[2017-08-30] MEDS: Enoxaparin 40 mg Syringe SC SCH (09:38)
[2017-08-30] MEDS: Insulin Detemir 100 Units/ml Inj SC SCH (22:11)
[2017-08-31] MEDS: Proshield Plus GEL TOP SCH ×3 (00:10→16:40)
[2017-08-31] MEDS: Insulin Regular 100 units/ml SC SCH ×4 (07:03→21:56)
[2017-08-31] MEDS: Enoxaparin 40 mg Syringe SC SCH (08:57)
[2017-08-31] MEDS: Insulin Lispro Mix 75/25 100 units/ml (HumaLog) 10ml SC SCH ×4 (08:57→17:28)
[2017-08-31] MEDS: Insulin Detemir 100 Units/ml Inj SC SCH (21:55)
[2017-09-01] MEDS: Proshield Plus GEL TOP SCH ×3 (06:33→17:25)
[2017-09-01] MEDS: Insulin Regular 100 units/ml SC SCH ×5 (06:36→21:12)
[2017-09-01] MEDS: Insulin Lispro Mix 75/25 100 units/ml (HumaLog) 10ml SC SCH ×3 (08:54→17:24)
[2017-09-01] MEDS: Enoxaparin 40 mg Syringe SC SCH (08:55)
--- NOTE | 2017-09-01 14:30 | CP.PCM.PN ---
Subjective - Date & Time of Evaluation Date of Evaluation: 09/01/17 Time of Evaluation: 14:29 - Subjective Subjective: doing well today no pain working with PT Objective - Vital Signs/Intake and Output Vital Signs (last 24 hours): Temp Pulse Resp BP Pulse Ox 97.2 F L 72 20 126/66 99 09/01/17 07:52 09/01/17 08:55 09/01/17 07:52 09/01/17 08:55 09/01/17 07:52 - Medications Medications: Current Medications Acetaminophen (Tylenol 325mg Tab) 325 mg PO Q4 PRN PRN Reason: pain1-3 Last Admin: 08/23/17 04:42 Dose: 325 mg Al Hydrox/Mg Hydrox/Simethicone (Maalox Plus 30 Ml) 30 ml PO Q6 PRN PRN Reason: Indigestion / Heartburn Last Admin: 08/25/17 17:47 Dose: 30 ml Alprazolam (Xanax) 0.25 mg PO HS [facility] Stop: 09/06/17 22:01 Last Admin: 08/31/17 21:56 Dose: 0.25 mg Aspirin (Ecotrin) 81 mg PO DAILY [facility] Last Admin: 09/01/17 08:54 Dose: 81 mg Bismuth Subsalicylate (Pepto Bismol) 262 mg PO Q1 PRN PRN Reason: Dyspepsia Last Admin: 08/28/17 12:25 Dose: 262 mg Carvedilol (Coreg) 3.125 mg PO BID [facility] Last Admin: 09/01/17 08:55 Dose: 3.125 mg Celecoxib (Celebrex) 100 mg PO Q12 [facility] Last Admin: 09/01/17 08:54 Dose: 100 mg Cephalexin Monohydrate (Keflex) 500 mg PO Q12 [facility] PRN Reason: Protocol Stop: 09/07/17 21:01 Last Admin: 09/01/17 12:46 Dose: 500 mg Clotrimazole (Lotrimin 1% Vaginal) 1 applic VG HS [facility] Last Admin: 08/31/17 22:00 Dose: 1 anti Dimethicone (Proshield Plus Skin Protectant) 1 applic TOP Q8 [facility] Last Admin: 09/01/17 08:55 Dose: 1 applic Enoxaparin Sodium (Lovenox) 40 mg SC DAILY [facility] PRN Reason: Protocol Last Admin: 09/01/17 08:55 Dose: 40 mg Ergocalciferol (Drisdol 50,000 Intl Units Cap) 1 cap PO Q7D [facility] Last Admin: 08/27/17 15:08 Dose: 1 cap Famotidine (Pepcid) 20 mg PO DAILY [facility] Last Admin: 09/01/17 08:56 Dose: 20 mg Gabapentin (Neurontin) 100 mg PO BID [facility] Last Admin: 09/01/17 08:55 Dose: 100 mg Insulin Detemir (Levemir) 18 units SC HS [facility] Last Admin: 08/31/17 21:55 Dose: 18 units Insulin Human Regular (Humulin R) 0 units SC ACHS [facility] PRN Reason: Protocol Last Admin: 09/01/17 12:47 Dose: 2 units Insulin Lispro Protam/Lispro Human (Humalog Mix 75/25) 22 units SC TID [facility] Last Admin: 09/01/17 12:46 Dose: 22 units Losartan Potassium (Cozaar) 50 mg PO DAILY [facility] Last Admin: 09/01/17 08:55 Dose: 50 mg Tramadol HCl (Ultram) 50 mg PO Q6 PRN PRN Reason: Pain, moderate (4-7) - Labs Labs: 08/26/17 06:00 08/26/17 06:00 - Constitutional Appears: Well, Non-toxic, No Acute Distress - Head Exam Head Exam: ATRAUMATIC, NORMAL INSPECTION, NORMOCEPHALIC - Eye Exam Eye Exam: Normal appearance Pupil Exam: NORMAL ACCOMODATION - ENT Exam ENT Exam: Mucous Membranes Moist - Respiratory Exam Respiratory Exam: Clear to Ausculation Bilateral, NORMAL BREATHING PATTERN. absent: Rales, Rhonchi, Wheezes - Cardiovascular Exam Cardiovascular Exam: REGULAR RHYTHM, +S1, +S2 - GI/Abdominal Exam GI & Abdominal Exam: Soft, Normal Bowel Sounds, Organomegaly. 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 At present patient feeling well, denies any pain or discomfort , denies chest pain SOB. She appears slightly confused . 1. Right Hip Osteoarthritis s/p THR Continued therapy in TCU PT / OT consult pain is controlled. Confusion is gone since narcotics discontinued (other than tramadol) +1 right leg edema likely 2/2 postop. if continued swelling and/or pain will consider right Le doppler to r/o DVT Lovenox for DVT prophylaxis 2. MITCH- resolved creatintine stable after IV fluids Encourage PO hydration repeat labs in AM 3. Acute blood Loss anemia from recent surgery Hg stablized at 8.4 on 08/24 Monitor 4. Uncontrolled DM Continue accuchecks, Insulin coverage , diabetic diet resume levemir and Novolog Increased Lispro mix from 18 to 20 units SC TID HGA1C 9.0 5. UA positive no symptoms will add abx due to recent OR likely had cath keflex po added 09/01/17
[2017-09-01] MEDS: Insulin Detemir 100 Units/ml Inj SC SCH (21:12)
[2017-09-02] MEDS: Proshield Plus GEL TOP SCH ×2 (00:09→08:46)
[2017-09-02] MEDS: Insulin Regular 100 units/ml SC SCH ×2 (06:34→11:52)
[2017-09-02] MEDS: Insulin Lispro Mix 75/25 100 units/ml (HumaLog) 10ml SC SCH ×2 (08:43→13:05)
[2017-09-02] MEDS: Enoxaparin 40 mg Syringe SC SCH (08:44)
[2017-09-02 08:46] VITALS: BP 148/65; PULSE 78
[2017-09-02 09:23] VITALS: TEMP 99; O2SAT 98
--- NOTE | 2017-09-02 10:50 | CP.PCM.PN ---
Subjective - Date & Time of Evaluation Date of Evaluation: 09/02/17 Time of Evaluation: 09:30 - Subjective Subjective: 81 yo F 2 wks s/p RTHR Pt seen and examined at bedside, comfortable Pt c/o mild right hip pain Pt denies any SOB, chest pain, N/V/D, numbness/tingling RLE Objective - Vital Signs/Intake and Output Vital Signs (last 24 hours): Temp Pulse Resp BP Pulse Ox 99.0 F 78 20 148/65 98 09/02/17 09:22 09/02/17 09:22 09/02/17 09:22 09/02/17 09:22 09/02/17 09:22 - Medications Medications: Current Medications Acetaminophen (Tylenol 325mg Tab) 325 mg PO Q4 PRN PRN Reason: pain1-3 Last Admin: 08/23/17 04:42 Dose: 325 mg Al Hydrox/Mg Hydrox/Simethicone (Maalox Plus 30 Ml) 30 ml PO Q6 PRN PRN Reason: Indigestion / Heartburn Last Admin: 08/25/17 17:47 Dose: 30 ml Alprazolam (Xanax) 0.25 mg PO HS [facility] Stop: 09/06/17 22:01 Last Admin: 09/01/17 21:08 Dose: 0.25 mg Aspirin (Ecotrin) 81 mg PO DAILY [facility] Last Admin: 09/02/17 08:45 Dose: 81 mg Bismuth Subsalicylate (Pepto Bismol) 262 mg PO Q1 PRN PRN Reason: Dyspepsia Last Admin: 08/28/17 12:25 Dose: 262 mg Carvedilol (Coreg) 3.125 mg PO BID [facility] Last Admin: 09/02/17 08:45 Dose: 3.125 mg Celecoxib (Celebrex) 100 mg PO Q12 [facility] Last Admin: 09/02/17 08:44 Dose: 100 mg Cephalexin Monohydrate (Keflex) 500 mg PO Q12 [facility] PRN Reason: Protocol Stop: 09/07/17 21:01 Last Admin: 09/02/17 08:45 Dose: 500 mg Clotrimazole (Lotrimin 1% Vaginal) 1 applic VG HS [facility] Last Admin: 09/01/17 21:13 Dose: 1 appl Dimethicone (Proshield Plus Skin Protectant) 1 applic TOP Q8 [facility] Last Admin: 09/02/17 08:46 Dose: 1 applic Enoxaparin Sodium (Lovenox) 40 mg SC DAILY [facility] PRN Reason: Protocol Last Admin: 09/02/17 08:44 Dose: 40 mg Ergocalciferol (Drisdol 50,000 Intl Units Cap) 1 cap PO Q7D [facility] Last Admin: 08/27/17 15:08 Dose: 1 cap Famotidine (Pepcid) 20 mg PO DAILY [facility] Last Admin: 09/02/17 08:46 Dose: 20 mg Gabapentin (Neurontin) 100 mg PO BID [facility] Last Admin: 09/02/17 08:45 Dose: 100 mg Insulin Detemir (Levemir) 18 units SC HS [facility] Last Admin: 09/01/17 21:12 Dose: Not Given Insulin Human Regular (Humulin R) 0 units SC ACHS [facility] PRN Reason: Protocol Last Admin: 09/02/17 06:34 Dose: 2 units Insulin Lispro Protam/Lispro Human (Humalog Mix 75/25) 22 units SC TID [facility] Last Admin: 09/02/17 08:43 Dose: 22 units Losartan Potassium (Cozaar) 50 mg PO DAILY [facility] Last Admin: 09/02/17 08:45 Dose: 50 mg Tramadol HCl (Ultram) 50 mg PO Q6 PRN PRN Reason: Pain, moderate (4-7) - Labs Labs: 08/26/17 06:00 08/26/17 06:00 - Constitutional Appears: Well, No Acute Distress - Respiratory Exam Respiratory Exam: Clear to Ausculation Bilateral, NORMAL BREATHING PATTERN - Cardiovascular Exam Cardiovascular Exam: REGULAR RHYTHM, RRR - Extremities Exam Additional comments: Right hip: Incision sites, C/D/I , hayley and sutures removed Calves soft and nontender b/l N/V intact distally Distal pulses wnl Assessment and Plan - Assessment and Plan (Free Text) Assessment: 81 yo F 2 wks s/p RTHR Plan: Pain Control PT/OT WBAT DVT ppx D/C planning
--- NOTE | 2017-09-02 21:54 | CP.PCM.PN ---
Subjective - Subjective Subjective: no AD mild pain R Hip Objective - Vital Signs/Intake and Output Vital Signs (last 24 hours): Temp Pulse Resp BP Pulse Ox 99.0 F 78 20 148/65 98 09/02/17 09:22 09/02/17 09:22 09/02/17 09:22 09/02/17 09:22 09/02/17 09:22 - Labs Labs: 08/26/17 06:00 08/26/17 06:00 - Constitutional Appears: No Acute Distress - Head Exam Head Exam: NORMAL INSPECTION - Eye Exam Eye Exam: PERRL - ENT Exam ENT Exam: Normal Exam - Neck Exam Neck Exam: Normal Inspection - Respiratory Exam Respiratory Exam: NORMAL BREATHING PATTERN - Cardiovascular Exam Cardiovascular Exam: REGULAR RHYTHM - GI/Abdominal Exam GI & Abdominal Exam: Soft, Normal Bowel Sounds - Extremities Exam Extremities Exam: Tenderness (mild tenderness R hip , surgical incisions healin well , neuromuscular atatus distal good , area of induration R hand palm with mild tenderness , L hand weakness) Additional comments: R and L Sacral Stage II , purple discoloration R L heel improved - Back Exam Back Exam: NORMAL INSPECTION - Neurological Exam Neurological Exam: Alert, Oriented x3 - Psychiatric Exam Psychiatric exam: Anxious - Skin Skin Exam: Warm Assessment and Plan (1) Status post total hip replacement, right Status: Acute (2) Vitamin D deficiency Status: Acute (3) HTN (hypertension) Status: Chronic (4) History of arterial embolism Status: Chronic (5) Diabetes mellitus type II, controlled Status: Acute - Assessment and Plan (Free Text) Plan: Improved and stable to be transfered to [facility] today to continue PT, see inst/ med sheet.
== END 2017-09-02 14:20 | DRG 560 ==
LOC: H.TCU 15:28
PROVIDERS: ADMIT Internal Medicine Pulmonary Disease; ATTEND Internal Medicine Pulmonary Disease
PROC: F08Z0FZ Bathing/Showering Techniques Treatment using Assistive, Adaptive, Supportive or Protective Equipment (ICD-10-PCS; principal; 2017-08-20)
PROC: F08Z1FZ Dressing Techniques Treatment using Assistive, Adaptive, Supportive or Protective Equipment (ICD-10-PCS; 2017-08-20)
PROC: F07Z5FZ Bed Mobility Treatment using Assistive, Adaptive, Supportive or Protective Equipment (ICD-10-PCS; 2017-08-20)
PROC: F07L6ZZ Therapeutic Exercise Treatment of Musculoskeletal System - Lower Back / Lower Extremity (ICD-10-PCS; 2017-08-20)
PROC: F07Z9FZ Gait Training/Functional Ambulation Treatment using Assistive, Adaptive, Supportive or Protective Equipment (ICD-10-PCS; 2017-08-20)
DX: Z47.1 Aftercare following joint replacement surgery (principal); D62 Acute posthemorrhagic anemia; N17.9 Acute kidney failure, unspecified; E11.65 Type 2 diabetes mellitus with hyperglycemia; E86.9 Volume depletion, unspecified; E55.9 Vitamin D deficiency, unspecified; Z96.641 Presence of right artificial hip joint; I10 Essential (primary) hypertension; E66.3 Overweight; Z68.30 Body mass index [BMI] 30.0-30.9, adult; R41.0 Disorientation, unspecified; T40.605A Adverse effect of unspecified narcotics, initial encounter; R53.1 Weakness; I69.398 Other sequelae of cerebral infarction

== ENCOUNTER 2017-11-21 08:58 | Inpatient (IN) | payer MEDICARE, MEDICAID ==
[2017-11-21 08:59] VITALS: BMI 26.6
[2017-11-21] MEDS ORDERED: Sodium Chloride 0.9% 500 ML IV SCH (10:30)
--- NOTE | 2017-11-21 10:43 | ED PDOC ---
HPI: General Adult Time Seen by Provider: 11/21/17 09:53 Chief Complaint (Nursing): Lower Extremity Problem/Injury Chief Complaint (Provider): Foot pain History Per: Patient, Family History/Exam Limitations: no limitations Onset/Duration Of Symptoms: Days (1-2 weeks) Current Symptoms Are (Timing): Still Present Additional Complaint(s): Pt. had hip surgery months ago and sent to [facility] [place] [facility] care. Developed b/l foot ulcers on back of heels b/l but it healed now. Surgery was by Dr. Bruner. Pt. has been having right hip pain since surgery. Developed R foot swelling and pain/redness for a weakness. No numbness, tingles. No fever. No chest pain, dyspnea, abd pain. Pt. ambulatory but with pain in hip and foot. Pt. also for few weeks of dysuria. Past Medical History Reviewed: Nursing Documentation, Vital Signs Vital Signs: Last Vital Signs Temp 98 F 11/21/17 09:55 Pulse 71 11/21/17 09:55 Resp 18 11/21/17 09:55 BP 170/79 H 11/21/17 09:55 Pulse Ox 99 11/21/17 10:55 - Medical History PMH: Anxiety, Arthritis, Back Problems (Herniated lumbar disc), CVA (L arm weakness), Diabetes, Gastritis (Hiatus Hernia), HTN, Hypercholesterolemia ( Patient can not take Statins due to myalgias.) Denies: Chronic Kidney Disease Other PMH: blood clot in arm - Surgical History Surgical History: Cholecystectomy Other surgeries: hip surgery - Family History Family History: States: Unknown Family Hx - Living Arrangements Living Arrangements: Fdc/Assist Lvng - Social History Alcohol: None Drugs: Denies - Home Medications Home Medications: Ambulatory Orders Medication Instructions Recorded Alprazolam [Xanax] 0.5 mg PO HS 06/11/16 Aspirin [Ecotrin] 81 mg PO DAILY 06/11/16 Insulin Detemir [Levemir] 12 unit SC HS 06/11/16 Olmesartan [BenicarNf] 20 mg PO DAILY 06/11/16 Verapamil [Verapamil HCl] 80 mg PO HS 06/11/16 Carvedilol [Coreg] 3.125 mg PO BID 08/18/17 Cholecalciferol (Vitamin D3) 50,000 units PO ASDIR 08/18/17 [Vitamin D3] Gabapentin [Neurontin] 100 mg PO BID 08/18/17 Icosapent Ethyl [Vascepa] 1 gm PO BID 08/18/17 Insulin Aspart/Insulin Aspar 15 units SUBCUT TID 08/18/17 [Novolog Mix 70/30 (70/30 units/ml)] Tramadol HCl [Ultram] 50 mg PO QID PRN 08/18/17 Acetaminophen [Tylenol 325mg tab] 325 mg PO Q4 PRN tab 08/20/17 Celecoxib [celeBREX] 100 mg PO Q12 cap 08/20/17 Enoxaparin [Lovenox] 40 mg SC DAILY syr 08/20/17 Cephalexin [cephalexin] 500 mg PO Q12 09/02/17 - Allergies Allergies/Adverse Reactions: Allergies Allergy/AdvReac Type Severity Reaction Status Date / Time No Known Allergies Allergy Verified 11/21/17 09:55 Review of Systems ROS Statement: Except As Marked, All Systems Reviewed And Found Negative Genitourinary Female: Positive for: Dysuria Musculoskeletal: Positive for: Leg Pain Physical Exam - Reviewed Nursing Documentation Reviewed: Yes Vital Signs Reviewed: Yes - Physical Exam Appears: Positive for: Non-toxic, No Acute Distress Head Exam: Positive for: ATRAUMATIC, NORMAL INSPECTION, NORMOCEPHALIC Skin: Positive for: Normal Color, Warm, DRY Eye Exam: Positive for: EOMI, Normal appearance, PERRL ENT: Positive for: Normal ENT Inspection Neck: Positive for: Normal, Painless ROM, Supple Cardiovascular/Chest: Positive for: Regular Rate, Rhythm Respiratory: Positive for: CNT, Normal Breath Sounds Pulses-Dorsalis Pedis (R): 2+ Gastrointestinal/Abdominal: Positive for: Normal Exam, Bowel Sounds, Soft. Negative for: Tenderness Back: Positive for: Normal Inspection. Negative for: L CVA Tenderness, R CVA Tenderness Extremity: Negative for: Normal ROM (tender R hip mild but able to have ROM almost full; R engine lathe tender diffuse with mild erythema distal half and swelling; no open ulcer; able to move toes and ankle. ), Calf Tenderness Neurologic/Psych: Positive for: Alert, boat mechanic II-XII, Oriented. Negative for: Motor/Sensory Deficits (L arm 4/5strength), Aphasia - Laboratory Results Result Diagrams: 11/21/17 11:29 11/21/17 11:29 Interpretation Of Abn Labs: 30 bun; lactate 2.3 - ECG ECG: Positive for: Interpreted By Me, Viewed By Me ECG Rhythm: Positive for: Normal QRS, Normal ST Segment, Sinus Rhythm O2 Sat by Pulse Oximetry: 99 Pulse Ox Interpretation: Normal - Radiology X-Ray: Read By Radiologist X-Ray Interpretation: No Acute Disease - CT Scan/US sono Other Rad Studies (CT/US): Read By Radiologist Other Rad Interpretation: dvt - Progress ED Course And Treament: Noncompressible thrombus within the right popliteal and right posterior tibial veins. 1354: Stable. AAOx3. Pain controlled. Podiatry saw pt. States for foot they recommend anti-fungal and keflex. Pt. with no recent fall, head injury, bleeding. Will give lovenox after discussion with Dr. Sarah. He will admit. Wants CTA. Does not meet sepsis criteria. Disposition - Clinical Impression Clinical Impression: DVT (deep venous thrombosis), Dehydration, Cellulitis of foot - Patient ED Disposition Is Patient to be Admitted: Yes Counseled Patient/Family Regarding: Studies Performed, Diagnosis - Disposition Disposition Time: 14:17 Condition: FAIR - Pt Status Changed To: Hospital Disposition Of: Inpatient - Admit Certification Admit to Inpatient:: After my assessment, the patient will require hospitalization for at least two midnights. This is because of the severity of symptoms shown, intensity of services needed, and/or the medical risk in this patient being treated as an outpatient. - POA Present On Arrival: Deep Vein Thrombosis / PE
--- NOTE | 2017-11-21 11:21 | RAD ---
HISTORY: Sepsis Patient COMPARISON: Comparison made with chest radiograph 08/13/2017 FINDINGS: LUNGS: Elevation right hemidiaphragm possibly due to eventration. There is also some mild scalloping of the right hemidiaphragm. . No significant interval change. PLEURA: No significant pleural effusion identified, no pneumothorax apparent. CARDIOVASCULAR: Cardiomegaly. OSSEOUS STRUCTURES: No significant abnormalities. VISUALIZED UPPER ABDOMEN: Normal. OTHER FINDINGS: None. IMPRESSION: Elevation right hemidiaphragm possibly due to eventration. There is also some mild scalloping of the right hemidiaphragm. Cardiomegaly. No significant interval change.
--- NOTE | 2017-11-21 11:31 | RAD ---
PROCEDURE: Pelvis right hip dated 11/21/2017 HISTORY: Pain COMPARISON: Comparison made with prior study dated 08/18/2017 TECHNIQUE: Frontal view of the pelvis and frontal/frogleg lateral views of the right hip performed. FINDINGS: Current study re- demonstrates a right-sided total hip replacement. Hardware appears intact without evidence of loosening or infection. No evidence of acute displaced fracture nor dislocation Re- demonstrated is a large elliptical shaped calcified density on overlying the mid true pelvis consistent with a large calcified uterine fibroid IMPRESSION: Right total hip replacement. No evidence of acute displaced fracture nor dislocation. No evidence of hardware failure.
[2017-11-21 11:33] LABS: BASO # 0.1 K/uL (0.0-0.2); BASO % 1.3 % (0.0-2.0); EOS # 0.2 K/uL (0.0-0.7); EOS % 2.5 % (0.0-4.0); LYMPH # 2.3 K/uL (1.0-4.3); LYMPH % 28.3 % (20.0-40.0); MEAN CELL VOLUME 81.3 fl (81.0-99.0); MEAN CORPUSCULAR HEMOGLOBIN 26.6 pg (27.0-31.0); MEAN CORPUSCULAR HGB CONC 32.7 g/dL (33.0-37.0); MONO # 0.5 K/uL (0.0-0.8); MONO % 6.1 % (0.0-10.0); NEUT # 4.9 K/uL (1.8-7.0); NEUT % 61.8 % (50.0-75.0); NRBC % 0.1 % (0.0-0.0); RBC 4.62 Mil/uL (3.80-5.20); RED CELL DISTRIBUTION WIDTH 15.3 % (11.5-14.5)
[2017-11-21 11:34] LABS: VENOUS BLOOD GAS BASE EXCESS 1.9 mmol/L (0.0-2.0); VENOUS BLOOD GAS PCO2 50 mmHg (40-60); VENOUS BLOOD GAS PO2 31 mm/Hg (30-55); VENOUS BLOOD PH 7.36 (7.32-7.43)
[2017-11-21 11:37] LABS: HEMOGLOBIN 12.3 g/dL (12.0-16.0)
--- NOTE | 2017-11-21 11:39 | RAD ---
PROCEDURE: Right foot dated 11/21/2017. HISTORY: Pain COMPARISON: No prior study available for comparison FINDINGS: BONES: No evidence of acute displaced fracture nor dislocation. The osseous structures appear intact however note is made of what appears represent cortical and subcortical cystic changes along the lateral margin proximal 3rd metatarsal nonspecific. JOINTS: Multi articular degenerative osteoarthritis particularly notable involving the PIP and DIP joints. Hammertoe deformity 2nd digit. . Prominent posterior and smaller plantar calcaneal enthesophytes. SOFT TISSUES: With Normal. OTHER FINDINGS: None. IMPRESSION: No definite evidence of acute displaced fracture nor dislocation. Multi articular DJD. Nonspecific and subcortical cystic changes proximal aspect right 3rd metatarsal.
[2017-11-21 11:46] LABS: ALB/GLOB RATIO 1.1 (1.0-2.1); ALBUMIN 3.5 g/dL (3.5-5.0); ALT/SGPT 28 U/L (9-52); AST/SGOT 24 U/L (14-36); BLOOD UREA NITROGEN 30 mg/dl (7-17); CALCIUM 9.2 mg/dL (8.4-10.2); GFR AFRICAN-AMERICAN > 60; GFR NON-AFRICAN AMERICAN > 60
[2017-11-21 11:50] LABS: PARTIAL THROMBOPLASTIN TIME 26.8 Seconds (25.6-37.1)
--- NOTE | 2017-11-21 12:51 | CP.PCM.PN ---
Subjective - Date & Time of Evaluation Date of Evaluation: 11/21/17 Time of Evaluation: 11:00 - Subjective Subjective: Podiatry Consult Note- Dr. Kennedy 82 y.o female with PMH of HTN, DM, anxiety was consulted by the ED for right swollen foot and right leg cellulitis. Patient is seen with daughter at bedside. Reports recent R hip replacement in July [address] Bruner. Daughter reported that the leg swelling has come and go for about 1 month now; the redness in the foot has been about 2 months. Patient reports recent pain to the right foot in which she describes as a burning sensation. Reports severe pain with touching the foot. Denies calf pain or tenderness during visitation. Denies chest pain, chills, fever, shortness of breath, or vomiting. PMH: HTN, DM, anxiety, L arm blood clot, mini stroke left hand PSH: gall bladder removal, R hip replacement MEDS: see medication list ALL: NKDA -reports does not feel well with cortisol FH-mom DM SH: denies smoking, drinking or illicit drug use Objective - Vital Signs/Intake and Output Vital Signs (last 24 hours): Temp Pulse Resp BP Pulse Ox 98 F 71 18 170/79 H 99 11/21/17 09:55 11/21/17 09:55 11/21/17 09:55 11/21/17 09:55 11/21/17 10:55 - Medications Medications: Current Medications Sodium Chloride (Sodium Chloride 0.9%) 500 mls @ 100 mls/hr IV .Q5H LOBITO - Labs Labs: 11/21/17 11:29 11/21/17 11:29 PT 11.0 Seconds (9.8-13.1) 11/21/17 11:29 INR 1.0 (0.9-1.2) 11/21/17 11:29 APTT 26.8 Seconds (25.6-37.1) 11/21/17 11:29 - Constitutional Appears: Well, Non-toxic, No Acute Distress - Extremities Exam Extremities Exam: absent: Calf Tenderness Additional comments: Vasc: DP and PT weakly palpable, temperature gradient WNL, no increase warmth noted to the right LE, CFT delayed x10 seconds Ortho: severe pain with palpation to the foot below the ankle, no pain with palpation to the calf Neuro: gross and protective sensation diminished Derm: calluses at the plantar heel measuring approximately 1 x 1 cm, no underlying ulceration appreciated, no open lesions erythema noted to the entire right foot below the ankle, mild erythema noted to the entire right LE scaly circular lesions noted to the bilaterally foot - Neurological Exam Neurological Exam: Alert, Awake, Oriented x3 - Psychiatric Exam Psychiatric exam: Normal Affect, Normal Mood Assessment and Plan - Assessment and Plan (Free Text) Assessment: 82 y.o female with PMH of HTN, DM, anxiety was consulted by the ED for right swollen foot and right leg cellulitis Plan: Patient examined and evaluated Discussed plan in detail with attending Dr. Kennedy Labs, charts, vitals reviewed U/S reviewed- DVT of right LE Foot X-ray no fracture noted, cystic changes noted to proximal right 3rd metatarsal Patient will be admitted for DVT treatment Lotrimin for tinea pedis Recommends abx for cellulitis Podiatry will continue to follow in house Thank you for allowing us to take part in patient's care
--- NOTE | 2017-11-21 13:15 | US ---
PROCEDURE: Right lower extremity venous duplex Doppler. HISTORY: r/o dvt COMPARISON: None available. TECHNIQUE: Common femoral, superficial femoral, popliteal and posterior tibial veins were evaluated. Flow was assessed with color Doppler, compressibility, assessment of phasic flow and augmentation response. FINDINGS: COMMON FEMORAL VEIN: Unremarkable. SUPERFICIAL FEMORAL VEIN: Unremarkable. POPLITEAL VEIN: There is noncompressible thrombus within the right popliteal and right posterior tibial veins. POSTERIOR TIBIAL VEIN: Unremarkable. OTHER FINDINGS: None. IMPRESSION: Noncompressible thrombus within the right popliteal and right posterior tibial veins.
[2017-11-21 14:10] LABS: SQUAMOUS EPITHIAL 1 /hpf (0-5); URINE BILIRUBIN NEGATIVE (NEGATIVE); URINE BLOOD NEGATIVE (NEGATIVE); URINE CLARITY SLIGHTY-CLOUDY (Clear); URINE COLOR YELLOW (YELLOW); URINE GLUCOSE (UA) >=500 mg/dL (Normal); URINE LEUKOCYTE ESTERASE NEG Leu/uL (Negative); URINE PROTEIN NEGATIVE (NEGATIVE); URINE UROBILINOGEN 0.2-1.0 mg/dL (0.2-1.0)
[2017-11-21] MEDS ORDERED: Enoxaparin 80 mg Syringe SC ONE (14:30)
[2017-11-21] MEDS ORDERED: Iodixanol 320 MG/ML 100 ML BOTTLE IV ONE (15:01)
[2017-11-21] MEDS ORDERED: Sodium Chloride 0.9% 100 ML ONE (15:02)
--- NOTE | 2017-11-21 16:42 | CT ---
PROCEDURE: CT Chest with contrast (Pulmonary Angiogram) HISTORY: Chest pain COMPARISON: Comparison made with prior chest radiograph earlier same day. TECHNIQUE: Axial computed tomography images were obtained of the chest in the pulmonary arterial phase of enhancement. Coronal and sagittal reformatted images were created and reviewed. Intravenous contrast dose: 95 cc Visipaque 320 contrast material. Radiation dose: Total exam DLP = 405.29 mGy-cm. This CT exam was performed using one or more of the following dose reduction techniques: Automated exposure control, adjustment of the mA and/or kV according to patient size, and/or use of iterative reconstruction technique. FINDINGS: PULMONARY ARTERIES: The visualized pulmonary trunk, right and left main, segmental and proximal subsegmental branches of the pulmonary arteries appear relatively well opacified with no definitive filling defects seen to suggest acute pulmonary embolus. Pulmonary trunk measures approximately 2.8 cm in greatest dimension. AORTA: No acute findings. No thoracic aortic aneurysm. LUNGS: Minor atelectasis and or scarring changes seen in the left lingular region and left lower lobe. . . There also appears to be mild localized borderline bronchiectasis in the right lower lobe PLEURAL SPACES: Unremarkable. No effusion or pneumothorax. HEART: Heart size is within range of normal. . There is mild left ventricular hypertrophy. Prominent of left atrium. The the ascending thoracic aorta measures approximately 2.79 cm and descending thoracic aorta measures approximately 2.2 cm. There appears to be a tiny amount of fluid adjacent to the anteromedial borders of the ascending thoracic aorta and pulmonary trunk. Few small nonspecific mediastinal lymph nodes. No significant hilar adenopathy. Questionable residual fluid within the lumen of the mid esophagus versus wall thickening. Consider followup endoscopy if further evaluation is required based on clinical correlation. There is a tiny hiatal hernia. LYMPH NODES: As above BONES, CHEST WALL: Minor multilevel degenerative spondylosis of the thoracic spine. No acute compression fractures no retropulsed fragments. OTHER FINDINGS: Cholecystectomy . Large exophytic cyst seen arising from the anterolateral upper pole right kidney. IMPRESSION: No evidence of acute central pulmonary embolus. Minor chronic atelectasis and or scarring changes left lingular region. Suggestion minor localized borderline bronchiectasis right lower lobe Questionable small amount of residual fluid of versus wall thickening mid esophagus. Consider followup endoscopy. Exophytic cyst right kidney.
[2017-11-21] MEDS ORDERED: ceFAZolin 1 GM in Sodium Chloride 0.9% 100 ML IVPB SCH (20:30)
[2017-11-21] MEDS: Sodium Chloride 0.9% 1,000 ML IV SCH (22:09)
[2017-11-21] MEDS: Insulin Lispro (humaLOG) 100 Units/ml Inj SC SCH (22:51)
[2017-11-22] MEDS: ceFAZolin 1 GM in Sodium Chloride 0.9% 100 ML IVPB SCH ×3 (01:15→16:28)
[2017-11-22] MEDS: Enoxaparin 80 mg Syringe SC SCH ×2 (04:26→18:11)
[2017-11-22] MEDS ORDERED: Enoxaparin 60 mg Syringe SC SCH (05:00)
[2017-11-22] MEDS: Insulin Lispro (humaLOG) 100 Units/ml Inj SC SCH ×7 (06:51→22:00)
[2017-11-22 08:19] LABS: ALB/GLOB RATIO 1.1 (1.0-2.1); ALBUMIN 3.2 g/dL (3.5-5.0); ALT/SGPT 27 U/L (9-52); AST/SGOT 17 U/L (14-36); BLOOD UREA NITROGEN 23 mg/dl (7-17); CALCIUM 8.6 mg/dL (8.4-10.2); GFR AFRICAN-AMERICAN > 60; GFR NON-AFRICAN AMERICAN > 60; HDL CHOLESTEROL 31 MG/DL (30-70)
[2017-11-22 08:24] LABS: LDL CHOLESTEROL 86 mg/dL (0-129)
[2017-11-22 08:28] LABS: PROTHROMBIN TIME 11.6 Seconds (9.8-13.1); T4 8.45 ug/dl (5.5-11.0)
[2017-11-22 08:29] LABS: HEMOGLOBIN 12.2 g/dL (12.0-16.0); MEAN CELL VOLUME 81.9 fl (81.0-99.0); MEAN CORPUSCULAR HEMOGLOBIN 26.6 pg (27.0-31.0); MEAN CORPUSCULAR HGB CONC 32.4 g/dL (33.0-37.0); PARTIAL THROMBOPLASTIN TIME 37.2 Seconds (25.6-37.1); RBC 4.58 Mil/uL (3.80-5.20); RED CELL DISTRIBUTION WIDTH 15.3 % (11.5-14.5); WHITE BLOOD COUNT 6.7 K/uL (4.8-10.8)
--- NOTE | 2017-11-22 12:51 | CARD ---
APPROVED REPORT EKG Measurement Heart [id number] <Conclusion> Normal sinus rhythm Cannot exclude old inferior wall infarct
--- NOTE | 2017-11-22 15:58 | CP.PCM.PN ---
Subjective - Date & Time of Evaluation Date of Evaluation: 11/22/17 Time of Evaluation: 13:00 - Subjective Subjective: Podiatry Progress Note- Dr. Kennedy 82 y.o female with PMH of HTN, DM, anxiety with DVT and improving cellulitis with tinea pedis seen and evaluated at bedside. Daughter is seen with patient at bedside. PPatient is seen resting comfortably in bed, in NAD, and AA0x3. Denies acute overnight events. Denies nausea, fever, shortness of breath, chest pain, chills or fever. Denies calf pain or tenderness. LE elevated on pillows at bedside. Patient reports that the multipodus boots are too hot to wear. Reports swelling and redness has gone down. The burning pain still present. Objective - Vital Signs/Intake and Output Vital Signs (last 24 hours): Temp Pulse Resp BP Pulse Ox 97.6 F 69 18 163/69 H 98 11/22/17 12:28 11/22/17 12:28 11/22/17 12:28 11/22/17 12:28 11/22/17 12:28 - Medications Medications: Current Medications Acetaminophen (Tylenol 325mg Tab) 650 mg PO Q4 PRN PRN Reason: Pain, Mild (1-3) Last Admin: 11/22/17 04:25 Dose: 650 mg Alprazolam (Xanax) 0.5 mg PO Q12 [facility] Stop: 11/28/17 21:01 Last Admin: 11/22/17 08:42 Dose: 0.5 mg Aspirin (Ecotrin) 81 mg PO DAILY [facility] Last Admin: 11/22/17 08:45 Dose: 81 mg Carvedilol (Coreg) 3.125 mg PO BID [facility] Last Admin: 11/22/17 08:45 Dose: 3.125 mg Clotrimazole (Lotrimin 1% Cream) 1 applic TOP BID [facility] Enoxaparin Sodium (Lovenox) 70 mg SC Q12@0500,1700 [facility] PRN Reason: Protocol Last Admin: 11/22/17 04:26 Dose: 70 mg Sodium Chloride (Sodium Chloride 0.9%) 1,000 mls @ 60 mls/hr IV .[id number] [facility] Stop: 11/22/17 20:15 Last Admin: 11/21/17 22:09 Dose: 60 mls/hr Cefazolin Sodium 1 gm/ Sodium (Chloride) 100 mls @ 100 mls/hr IVPB Q8H [facility] PRN Reason: Protocol Last Admin: 11/22/17 08:44 Dose: 100 mls/hr Insulin Human Lispro (Humalog) 12 units SC TID [facility] Last Admin: 11/22/17 13:46 Dose: 12 units Insulin Human Lispro (Humalog) 0 units SC ACHS [facility] PRN Reason: Protocol Last Admin: 11/22/17 13:49 Dose: 1 units Losartan Potassium (Cozaar) 50 mg PO DAILY [facility] Last Admin: 11/22/17 08:45 Dose: 50 mg Tramadol HCl (Ultram) 50 mg PO Q6 PRN PRN Reason: Pain, moderate (4-7) - Labs Labs: 11/22/17 06:04 11/22/17 06:04 PT 11.6 Seconds (9.8-13.1) 11/22/17 06:04 INR 1.0 (0.9-1.2) 11/22/17 06:04 APTT 37.2 Seconds (25.6-37.1) H D 11/22/17 06:04 - Constitutional Appears: Well, Non-toxic, No Acute Distress - Extremities Exam Extremities Exam: absent: Calf Tenderness Additional comments: Vasc: DP and PT weakly palpable, temperature gradient WNL, no increase warmth noted to the right LE, CFT delayed x10 seconds Ortho: severe pain with palpation to the foot below the ankle, no pain with palpation to the calf Neuro: gross and protective sensation diminished Derm: calluses at the plantar heel measuring approximately 1 x 1 cm, no underlying ulceration appreciated, no open lesions erythema noted to the entire right foot below the ankle, mild erythema noted to the entire right LE-improved scaly circular lesions noted to the bilaterally foot - Neurological Exam Neurological Exam: Alert, Awake, Oriented x3 Assessment and Plan - Assessment and Plan (Free Text) Assessment: 82 y.o female with PMH of HTN, DM, anxiety with DVT and improving cellulitis with tinea pedis seen and evaluated at bedside. Plan: Patient examined and evaluated Discussed plan in detail with attending Dr. Kennedy Labs, charts, vitals reviewed U/S reviewed- DVT of right LE Foot X-ray no fracture noted, cystic changes noted to proximal right 3rd metatarsal Lotrimin for tinea pedis c/w abx for cellulitis Podiatry will continue to follow in house
--- NOTE | 2017-11-22 19:49 | CP.PCM.HP ---
History of Present Illness - History of Present Illness History of Present Illness: CC: Pain RLE. 82 y/o F, with multiple chronic medical conditions including Hx of DM, brought to ER [facility], [place] to be evaluated for pain to RLE with no relief. Pt c/o of gradually increased pain in RLE for a week, states is aching, constant , moderate to severe intensity of 8:10, also R foot pain with burning sensation associated to swelling, redness in , increased symptoms 2 days [employer]. Right THR 08-18-17 [facility] [place] , Patient was tranferred to TCU 08-20-17 for Rehab. and DD home 09-02-17 , there after at home She developed ulcers R L heel with great difficulty with Therapy at home , heels ulcers were treated at home with local care, Patient was also treated with Augmentin for C-S positive the ulcers gradually healed and according to Patient and Patient's daughter at bedside ulcers healed earlier this week , also She took Augmentin up to this week Worsening symptoms: Showing DVT RLE on Ext U-S. Aggravated factor: Movements/exercise. Pt denied: Fall, fever, chills, n/v/d, abdominal pain, CP, palpitations, syncope , SOB,cough, sick contact, recent travel out of [place]. 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 EKG: NSR. Cannot exclude old inferior wall infarct. Foot, Hip/Pelv X-Ray: No evidence of Fx of dislocations. CT Chest: Minor localized borderline bronchiectasis RLL. Present on Admission - Present on Admission Any Indicators Present on Admission: Yes History of DVT/PE: Yes Review of Systems - Constitutional Constitutional: Weakness - EENT Eyes: Other (negative) Ears: Other (negative) Nose/Mouth/Throat: Other (negative) - Cardiovascular Cardiovascular: Other (negative) - Respiratory Respiratory: Other (negative) - Gastrointestinal Gastrointestinal: Other (negative) - Genitourinary Genitourinary: Other (negative) - Musculoskeletal Musculoskeletal: Arthralgias, Back Pain, Other (pain RLE/ foot) - Integumentary Integumentary: Swelling (R foot) - Neurological Neurological: Weakness (LUE) - Psychiatric Psychiatric: Anxiety - Endocrine Endocrine: Other (negative) - Hematologic/Lymphatic Hematologic: Other (negative) Past Patient History - Infectious Disease Hx of Infectious Diseases: None - Tetanus Immunizations Tetanus Immunization: Unknown - Past Medical History & Family History Past Medical History?: Yes Pertinent Family History: Son: O/A, TKR - Past Social History Smoking Status: Never Smoked Alcohol: None Drugs: Denies Home Situation {Lives}: With Family - CARDIAC Hx Cardiac Disorders: Yes (HTN) Hx Hypertension: Yes - PULMONARY Hx Respiratory Disorders: Yes Other/Comment: Hx Allergic Rhinitis - NEUROLOGICAL Hx Neurological Disorder: Yes HX Cerebrovascular Accident: Yes (R CVA 2012) - HEENT Hx HEENT Problems: Yes Hx Cataracts: Yes Other/Comment: Allergic Rhinitis - RENAL Hx Chronic Kidney Disease: No Other/Comment: Recurrent UTI's - ENDOCRINE/METABOLIC Hx Endocrine Disorders: Yes (DM) - HEMATOLOGICAL/ONCOLOGICAL Hx Blood Disorders: Yes (DVT) Other/Comment: Arterial embolus LUE with embolectomy L subclavian 2015 - INTEGUMENTARY Hx Dermatological Problems: No - MUSCULOSKELETAL/RHEUMATOLOGICAL Hx Musculoskeletal Disorders: Yes Hx Arthritis: Yes Hx Back Pain: Yes Hx Falls: No Other/Comment: Lumbago , treated with Epidural block - GASTROINTESTINAL Hx Gastritis: Yes (Hiatus Hernia) - GENITOURINARY/GYNECOLOGICAL Hx Genitourinary Disorders: Yes (UTI recurrent) - PSYCHIATRIC Hx Anxiety: Yes Hx Substance Use: No - SURGICAL HISTORY Hx Cholecystectomy: Yes Hx Orthopedic Surgery: Yes (Right THR) Other/Comment: LUE Arterial Embolectomy 2016 - ANESTHESIA Hx Anesthesia: Yes Hx Anesthesia Reactions: No Hx Malignant Hyperthermia: No Meds Allergies/Adverse Reactions: Allergies Allergy/AdvReac Type Severity Reaction Status Date / Time No Known Allergies Allergy Verified 11/21/17 09:55 Physical Exam - Constitutional Appears: Chronically Ill - Head Exam Head Exam: NORMAL INSPECTION - Eye Exam Eye Exam: PERRL - ENT Exam ENT Exam: Normal Exam - Neck Exam Neck exam: Positive for: Normal Inspection - Respiratory Exam Respiratory Exam: NORMAL BREATHING PATTERN - Cardiovascular Exam Cardiovascular Exam: REGULAR RHYTHM, Systolic Murmur (1/6 LSB) - GI/Abdominal Exam GI & Abdominal Exam: Normal Bowel Sounds, Soft - Extremities Exam Additional comments: redness with tenderness distal dorsum R foot and toes , healed ulcers R L heel - Back Exam Back exam: NORMAL INSPECTION - Neurological Exam Neurological exam: Alert, CN II-XII Intact, Oriented x3 Additional comments: weakness LUE rest no focal motor/sensory deficit - Psychiatric Exam Psychiatric exam: Anxious - Skin Skin Exam: Warm (Cellulitis RLE) Results - Vital Signs Recent Vital Signs: Last Vital Signs Temp 97.6 F 11/22/17 17:10 Pulse 74 11/22/17 17:10 Resp 18 11/22/17 17:10 BP 152/65 H 11/22/17 18:06 Pulse Ox 98 11/22/17 17:10 reviewed Jagjit - Labs Result Diagrams: 11/23/17 04:20 11/23/17 04:20 Labs: Laboratory Results - last 24 hr 11/21/17 11/22/17 11/22/17 21:25 05:48 06:04 WBC 6.7 RBC 4.58 Hgb 12.2 Hct 37.5 MCV 81.9 MCH 26.6 L MCHC 32.4 L RDW 15.3 H Plt Count 276 PT INR APTT Sodium Potassium Chloride Carbon Dioxide Anion Gap BUN Creatinine Est GFR ( Amer) Est GFR (Non-Af Amer) POC Glucose (mg/dL) 235 H 256 H Random Glucose Hemoglobin A1c Calcium Total Bilirubin AST ALT Alkaline Phosphatase Total Protein Albumin Globulin Albumin/Globulin Ratio Triglycerides Cholesterol LDL Cholesterol Direct HDL Cholesterol Thyroxine (T4) TSH 3rd Generation 11/22/17 11/22/17 11/22/17 06:04 06:04 06:04 WBC RBC Hgb Hct MCV MCH MCHC RDW Plt Count PT 11.6 INR 1.0 APTT 37.2 H D Sodium 140 Potassium 4.4 Chloride 106 Carbon Dioxide 24 Anion Gap 14 BUN 23 H Creatinine 0.7 Est GFR ( Amer) > 60 Est GFR (Non-Af Amer) > 60 POC Glucose (mg/dL) Random Glucose 277 H Hemoglobin A1c 9.3 H Calcium 8.6 Total Bilirubin 0.4 AST 17 ALT 27 Alkaline Phosphatase 109 Total Protein 6.1 L Albumin 3.2 L Globulin 2.9 Albumin/Globulin Ratio 1.1 Triglycerides 222 H Cholesterol 156 LDL Cholesterol Direct 86 HDL Cholesterol 31 Thyroxine (T4) 8.45 TSH 3rd Generation 1.66 11/22/17 11/22/17 11:10 16:39 WBC RBC Hgb Hct MCV MCH MCHC RDW Plt Count PT INR APTT Sodium Potassium Chloride Carbon Dioxide Anion Gap BUN Creatinine Est GFR ( Amer) Est GFR (Non-Af Amer) POC Glucose (mg/dL) 188 H 118 H Random Glucose Hemoglobin A1c Calcium Total Bilirubin AST ALT Alkaline Phosphatase Total Protein Albumin Globulin Albumin/Globulin Ratio Triglycerides Cholesterol LDL Cholesterol Direct HDL Cholesterol Thyroxine (T4) TSH 3rd Generation reviewed J.P. - EKG Data EKG comments: reviewed J.P. - Imaging and Cardiology Chest x-ray Status: Report reviewed by me (Jagjit) Venous US Status: Report reviewed by me (NighatPPernell) CT scan - chest Status: Report reviewed by me (NighatPPernell) Additional comment: R foot/Hip/Pelvis X-Ray: Reviwed J.P. Assessment & Plan (1) Cellulitis of right lower extremity Status: Acute Priority: High Comment: R foot (2) Deep vein thrombosis (DVT) of right lower extremity Status: Acute Priority: High Comment: R Popliteal and R posterior tibial veins (3) HTN (hypertension) Status: Chronic Priority: Medium (4) Anxiety Status: Chronic Priority: Medium (5) Status post total hip replacement, right Status: Chronic Priority: Medium (6) History of arterial embolism Status: Chronic Priority: Medium Comment: STEVE (7) Diabetes mellitus Status: Chronic Comment: uncontrolled (8) Hyperglycemia Status: Acute - Assessment and Plan (Free Text) Plan: Lovenox , Ancef BS control , Endoctine consult , PT - Date & Time Date: 11/22/17 Time: 14:30
[2017-11-23] MEDS: ceFAZolin 1 GM in Sodium Chloride 0.9% 100 ML IVPB SCH ×3 (00:10→17:17)
[2017-11-23] MEDS: Sodium Chloride 0.9% 1,000 ML IV SCH ×2 (00:11→00:12)
[2017-11-23 05:53] LABS: HEMOGLOBIN 11.7 g/dL (12.0-16.0); MEAN CELL VOLUME 81.8 fl (81.0-99.0); MEAN CORPUSCULAR HEMOGLOBIN 26.6 pg (27.0-31.0); MEAN CORPUSCULAR HGB CONC 32.5 g/dL (33.0-37.0); RBC 4.4 Mil/uL (3.80-5.20); WHITE BLOOD COUNT 7.4 K/uL (4.8-10.8)
[2017-11-23] MEDS: Enoxaparin 80 mg Syringe SC SCH (05:55)
[2017-11-23 06:30] LABS: INR 1.1 (0.9-1.2); PARTIAL THROMBOPLASTIN TIME 29.6 Seconds (25.6-37.1); PROTHROMBIN TIME 11.7 Seconds (9.8-13.1)
[2017-11-23 06:41] LABS: BLOOD UREA NITROGEN 19 mg/dl (7-17); CALCIUM 8.3 mg/dL (8.4-10.2); GFR AFRICAN-AMERICAN > 60; GFR NON-AFRICAN AMERICAN > 60
[2017-11-23 06:42] LABS: ALB/GLOB RATIO 1.1 (1.0-2.1); ALBUMIN 2.9 g/dL (3.5-5.0); ALT/SGPT 18 U/L (9-52); AST/SGOT 27 U/L (14-36)
[2017-11-23] MEDS: Insulin Lispro (humaLOG) 100 Units/ml Inj SC SCH ×7 (06:46→22:05)
--- NOTE | 2017-11-23 15:54 | CP.PCM.PN ---
Subjective - Date & Time of Evaluation Date of Evaluation: 11/23/17 Time of Evaluation: 13:00 - Subjective Subjective: Podiatry Progress Note- Dr. Kennedy 82 y.o female with PMH of HTN, DM, anxiety with DVT and improving cellulitis with tinea pedis seen and evaluated at bedside.Patient is seen resting comfortably in bed, in NAD, and AA0x3. Denies acute overnight events. Denies nausea, fever, shortness of breath, chest pain, chills or fever. Denies calf pain or tenderness. Reports swelling and redness has gone down. The burning pain still present. Objective - Vital Signs/Intake and Output Vital Signs (last 24 hours): Temp Pulse Resp BP Pulse Ox 98.4 F 68 18 128/75 98 11/23/17 13:00 11/23/17 13:00 11/23/17 13:00 11/23/17 13:00 11/23/17 13:45 - Medications Medications: Current Medications Acetaminophen (Tylenol 325mg Tab) 650 mg PO Q4 PRN PRN Reason: Pain, Mild (1-3) Last Admin: 11/22/17 04:25 Dose: 650 mg Alprazolam (Xanax) 0.5 mg PO Q12 [facility]CLUDES [facility] Stop: 11/28/17 21:01 Last Admin: 11/23/17 08:38 Dose: 0.5 mg Apixaban (Eliquis) 5 mg PO BID@0500,1700 [facility]CLUDES [facility] PRN Reason: Protocol Aspirin (Ecotrin) 81 mg PO DAILY COUNT INCLUDES THE [facility] Last Admin: 11/23/17 08:35 Dose: 81 mg Carvedilol (Coreg) 3.125 mg PO BID COUNT INCLUDES THE [facility] Last Admin: 11/23/17 08:34 Dose: 3.125 mg Clotrimazole (Lotrimin 1% Cream) 1 applic TOP BID COUNT INCLUDES [facility] Last Admin: 11/23/17 08:37 Dose: 1 applic Fluconazole (Diflucan) 100 mg PO DAILY COUNT [facility]CLUD[facility] PRN Reason: Protocol Stop: 11/25/17 11:00 Last Admin: 11/23/17 08:35 Dose: 100 mg Cefazolin Sodium 1 gm/ Sodium (Chloride) 100 mls @ 100 mls/hr IVPB Q8H COUNT [facility]CLUDES [facility] PRN Reason: Protocol Last Admin: 11/23/17 08:33 Dose: 100 mls/hr Insulin Detemir (Levemir) 8 units SC HS [facility] Insulin Human Lispro (Humalog) 8 units SC AC [facility] Insulin Human Lispro (Humalog) 0 units SC ACHS [facility] Losartan Potassium (Cozaar) 50 mg PO DAILY COUNT [facility]CLUDES [facility] Last Admin: 11/23/17 08:34 Dose: 50 mg Tramadol HCl (Ultram) 50 mg PO Q6 PRN PRN Reason: Pain, moderate (4-7) Last Admin: 11/22/17 21:22 Dose: 50 mg - Labs Labs: 11/23/17 04:20 11/23/17 04:20 PT 11.7 Seconds (9.8-13.1) 11/23/17 04:20 INR 1.1 (0.9-1.2) 11/23/17 04:20 APTT 29.6 Seconds (25.6-37.1) D 11/23/17 04:20 - Constitutional Appears: Well, Non-toxic, No Acute Distress - Extremities Exam Extremities Exam: absent: Calf Tenderness Additional comments: Vasc: DP and PT weakly palpable, temperature gradient WNL, no increase warmth noted to the right LE, CFT delayed x10 seconds Ortho: severe pain with palpation to the foot below the ankle, no pain with palpation to the calf Neuro: gross and protective sensation diminished Derm: calluses at the plantar heel measuring approximately 1 x 1 cm, no underlying ulceration appreciated, no open lesions erythema noted to the entire right foot below the ankle, mild erythema noted to the entire right LE-improved scaly circular lesions noted to the bilaterally foot - Neurological Exam Neurological Exam: Alert, Awake, Oriented x3 - Psychiatric Exam Psychiatric exam: Normal Affect, Normal Mood Assessment and Plan - Assessment and Plan (Free Text) Assessment: 82 y.o female with PMH of HTN, DM, anxiety with DVT and improving cellulitis with tinea pedis seen and evaluated at bedside. Plan: Patient examined and evaluated Discussed plan in detail with attending Dr. Kennedy Labs, charts, vitals reviewed U/S reviewed- DVT of right LE DVT treatment per primary team Foot X-ray no fracture noted, cystic changes noted to proximal right 3rd metatarsal Ordered uric acid to r/o gout Lotrimin for tinea pedis c/w abx for cellulitis Patient stable per podiatry standpoint with resolving cellulitis Patient can follow up with Dr. Kennedy as an outpatient within 1 week upon discharge Please call to make an appointment
--- NOTE | 2017-11-23 17:19 | CP.PCM.PN ---
Subjective - Date & Time of Evaluation Date of Evaluation: 11/23/17 Time of Evaluation: 11:20 - Subjective Subjective: F/U Cellulitis RLE Objective - Vital Signs/Intake and Output Vital Signs (last 24 hours): Temp Pulse Resp BP Pulse Ox 98.3 F 68 16 133/74 98 11/23/17 15:58 11/23/17 17:17 11/23/17 15:58 11/23/17 17:17 11/23/17 15:58 - Medications Medications: Current Medications Acetaminophen (Tylenol 325mg Tab) 650 mg PO Q4 PRN PRN Reason: Pain, Mild (1-3) Last Admin: 11/22/17 04:25 Dose: 650 mg Alprazolam (Xanax) 0.5 mg PO Q12 [facility] Stop: 11/28/17 21:01 Last Admin: 11/23/17 08:38 Dose: 0.5 mg Apixaban (Eliquis) 5 mg PO BID@0500,1700 [facility] PRN Reason: Protocol Aspirin (Ecotrin) 81 mg PO DAILY [facility] Last Admin: 11/23/17 08:35 Dose: 81 mg Carvedilol (Coreg) 3.125 mg PO BID [facility] Last Admin: 11/23/17 17:17 Dose: 3.125 mg Clotrimazole (Lotrimin 1% Cream) 1 applic TOP BID [facility] Last Admin: 11/23/17 08:37 Dose: 1 applic Fluconazole (Diflucan) 100 mg PO DAILY [facility] PRN Reason: Protocol Stop: 11/25/17 11:00 Last Admin: 11/23/17 08:35 Dose: 100 mg Cefazolin Sodium 1 gm/ Sodium (Chloride) 100 mls @ 100 mls/hr IVPB Q8H [facility] PRN Reason: Protocol Last Admin: 11/23/17 17:17 Dose: 100 mls/hr Insulin Detemir (Levemir) 8 units SC HS [facility] Insulin Human Lispro (Humalog) 8 units SC AC [facility] Insulin Human Lispro (Humalog) 0 units SC ACHS [facility] Losartan Potassium (Cozaar) 50 mg PO DAILY [facility] Last Admin: 11/23/17 08:34 Dose: 50 mg Tramadol HCl (Ultram) 50 mg PO Q6 PRN PRN Reason: Pain, moderate (4-7) Last Admin: 11/22/17 21:22 Dose: 50 mg - Labs Labs: 11/23/17 04:20 11/23/17 04:20 PT 11.7 Seconds (9.8-13.1) 11/23/17 04:20 INR 1.1 (0.9-1.2) 11/23/17 04:20 APTT 29.6 Seconds (25.6-37.1) D 11/23/17 04:20 - Constitutional Appears: Chronically Ill - Head Exam Head Exam: NORMAL INSPECTION - Eye Exam Eye Exam: PERRL - ENT Exam ENT Exam: Normal Exam - Neck Exam Neck Exam: Normal Inspection - Respiratory Exam Respiratory Exam: NORMAL BREATHING PATTERN - Cardiovascular Exam Cardiovascular Exam: REGULAR RHYTHM, Murmur (systolic 1/6 LSB) - GI/Abdominal Exam GI & Abdominal Exam: Soft, Normal Bowel Sounds - Extremities Exam Extremities Exam: Tenderness (and resdness distal dorsum T foot and toes, healed ulces R-L heel.) - Back Exam Back Exam: NORMAL INSPECTION - Neurological Exam Neurological Exam: Alert, CN II-XII Intact, Oriented x3 Additional comments: Weakness LUE, rest no focal motor/sensory deficit - Psychiatric Exam Psychiatric exam: Anxious - Skin Skin Exam: Warm (Cellulitis RLE) Assessment and Plan (1) Cellulitis of right lower extremity Status: Acute (2) Deep vein thrombosis (DVT) of right lower extremity Status: Acute (3) HTN (hypertension) Status: Chronic (4) Anxiety Status: Chronic (5) Status post total hip replacement, right Status: Chronic (6) History of arterial embolism Status: Chronic (7) Diabetes mellitus Status: Chronic (8) Hyperglycemia Status: Acute
[2017-11-23] MEDS ORDERED: Insulin Detemir 100 Units/ml Inj SC SCH (22:00)
[2017-11-23 23:46] VITALS: RESP 18
[2017-11-24] MEDS: ceFAZolin 1 GM in Sodium Chloride 0.9% 100 ML IVPB SCH ×2 (00:35→08:29)
--- NOTE | 2017-11-24 01:11 | CON ---
DATE: ENDOCRINOLOGY CONSULTATION LOCATION: In room 404. HISTORY OF PRESENT ILLNESS: This is an 82-year-old female with known history of type 2 insulin-requiring diabetes, presenting here with increasing right lower extremity pain and paresthesias and evaluated to have a right foot cellulitis and and currently undergoing vascular workup and is being referred now for diabetic evaluation because of glycemic fluctuations despite the current insulin regimen as ordered. PAST MEDICAL HISTORY: As mentioned above, history of type 2 insulin-requiring diabetes on a triple insulin regimen with NovoLog given as 12 units t.i.d. before meals with no basal insulin given overnight as noted. History of hypertensive cardiovascular disease and dyslipidemia, history of diabetic retinopathy and polyneuropathy with peripheral arterial disease and vasculopathy as noted. She also has a previous cerebrovascular event with acute CVA in 2012 with residual right upper extremity hemipareses and weakness. She also had a prior left upper extremity subclavian embolus with a subsequent embolectomy done in 2016. She also has severe lumbar disk disease with previous epidural injections to the lower back and she also has a known history of osteoarthritis and has a prior right total hip replacement as noted thereof. She is currently on oral anticoagulant therapy as given. FAMILY HISTORY: Positive for diabetes and hypertension. SOCIAL HISTORY: The patient has supportive family with no known substance use. REVIEW OF SYSTEMS: As mentioned above. Admits to generalized body weakness with easy fatigability and tiredness and suboptimal energy level. Also admits to episodic dizziness and lightheadedness, worse on the day of admission. No chest pains or palpitations or PND. Her oral intake has been variable with nausea and dyspepsia and vague upper abdominal pain. Extremities showed she has lower extremity painful neuropathic kind of pain with painful paresthesias. There is tenderness and swelling in the dorsum of the right foot. PHYSICAL EXAMINATION: GENERAL: Average built female in no apparent distress. VITAL SIGNS: The blood pressure of 140/80, pulse of 70 beats per minute and regular, temperature 98, respirations 20, height is 5 feet 5 inches, weight is 150 pounds. HEENT: Head normocephalic. Eyes anicteric with pink conjunctivae. Funduscopy not possible at this time. Ears and throat otherwise normal. NECK: Supple. Thyroid gland is normal in size. No carotid bruits or cervical adenopathy. CARDIOPULMONARY: Adynamic precordium. S1, S2 is rapid and regular. LUNGS: Clear to auscultation. ABDOMEN: Flat, soft with positive bowel sounds. EXTREMITIES: Pulses are +2 bilaterally. The dorsum of the right foot shows erythema and edema as noted thereof. LABORATORY: Her chemistry showed a BUN of 19, sodium 137, potassium 4.3, chloride 104, CO2 25, glucose 233 and creatinine 0.8. Her glucose levels have ranged from 149-234 mg/dL. ASSESSMENT This is an 82-year-old female with uncontrolled and decompensated type 2 insulin-requiring diabetes with recent glycemic fluctuations as expected from the intercurrent right foot cellulitis, which will contribute the increased insulin resistance and further impaired glucose tolerance thereof. She also has diabetic microvascular complications of the retinopathy and polyneuropathy with diabetic macrovascular complications of cerebrovascular disease, coronary artery disease and peripheral arterial disease and vasculopathy. Presenting here with the right lower extremity and right foot cellulitis. PLAN OF MANAGEMENT: As discussed with the patient and staff. We will modify the current insulin regimen and actually switch over to a more physiologic basal and bolus insulin drug combination as ordered. We will start her with a lower dose of Humalog given as 8 units subcutaneous t.i.d. before meals to start lunchtime today as ordered. We will also add basal insulin, but very low dose of Levemir given as 6 units subcutaneous at bedtime daily to start tonight. We will modify the coverage scale to obviate hypoglycemia and detailed orders have been given. A hemoglobin A1c will be done already ordered to confirm her prior poor glycemic control. We will obtain serial chemistries and supplement accordingly as needed. We will follow. Ariadne Carson MD
[2017-11-24] MEDS: Insulin Lispro (humaLOG) 100 Units/ml Inj SC SCH ×3 (06:31→13:59)
[2017-11-24 11:57] VITALS: BP 151/70; PULSE 66; TEMP 98; O2SAT 100
--- NOTE | 2017-11-24 12:41 | CP.PCM.PN ---
Subjective - Date & Time of Evaluation Date of Evaluation: 11/24/17 Time of Evaluation: 12:00 - Subjective Subjective: Podiatry Progress Note- Dr. Kennedy 82 y.o female with PMH of HTN, DM, anxiety with DVT and improving cellulitis with tinea pedis seen and evaluated at bedside.Patient is seen resting comfortably in bed, in NAD, and AA0x3. Denies acute overnight events. Denies nausea, fever, shortness of breath, chest pain, chills or fever. Denies calf pain or tenderness. Patient reports that the burning pain is present. Reports pain has improved as well as the swelling. Objective - Vital Signs/Intake and Output Vital Signs (last 24 hours): Temp Pulse Resp BP Pulse Ox 98 F 66 18 151/70 H 100 11/24/17 11:57 11/24/17 11:57 11/24/17 11:57 11/24/17 11:57 11/24/17 11:57 - Medications Medications: Current Medications Acetaminophen (Tylenol 325mg Tab) 650 mg PO Q4 PRN PRN Reason: Pain, Mild (1-3) Last Admin: 11/22/17 04:25 Dose: 650 mg Alprazolam (Xanax) 0.5 mg PO Q12 [facility] Stop: 11/28/17 21:01 Last Admin: 11/24/17 08:34 Dose: Not Given Apixaban (Eliquis) 5 mg PO BID@0500,1700 [facility] PRN Reason: Protocol Last Admin: 11/24/17 04:38 Dose: 5 mg Aspirin (Ecotrin) 81 mg PO DAILY [facility] Last Admin: 11/24/17 08:33 Dose: 81 mg Carvedilol (Coreg) 3.125 mg PO BID [facility] Last Admin: 11/24/17 08:32 Dose: 3.125 mg Clotrimazole (Lotrimin 1% Cream) 1 applic TOP BID [facility] Last Admin: 11/23/17 17:25 Dose: 1 applic Dicyclomine HCl (Bentyl) 10 mg PO TID PRN PRN Reason: Other Fluconazole (Diflucan) 100 mg PO DAILY [facility] PRN Reason: Protocol Stop: 11/25/17 11:00 Last Admin: 11/24/17 08:32 Dose: 100 mg Cefazolin Sodium 1 gm/ Sodium (Chloride) 100 mls @ 100 mls/hr IVPB Q8H [facility] PRN Reason: Protocol Last Admin: 11/24/17 08:29 Dose: 100 mls/hr Insulin Detemir (Levemir) 8 units SC HS [facility] Last Admin: 11/23/17 22:05 Dose: Not Given Insulin Human Lispro (Humalog) 8 units SC AC [facility] Last Admin: 11/24/17 08:33 Dose: Not Given Insulin Human Lispro (Humalog) 0 units SC ACHS [facility] Last Admin: 11/24/17 06:31 Dose: Not Given Losartan Potassium (Cozaar) 50 mg PO DAILY [facility] Last Admin: 11/24/17 08:32 Dose: 50 mg Tramadol HCl (Ultram) 50 mg PO Q6 PRN PRN Reason: Pain, moderate (4-7) Last Admin: 11/22/17 21:22 Dose: 50 mg - Labs Labs: 11/23/17 04:20 11/23/17 04:20 PT 11.7 Seconds (9.8-13.1) 11/23/17 04:20 INR 1.1 (0.9-1.2) 11/23/17 04:20 APTT 29.6 Seconds (25.6-37.1) D 11/23/17 04:20 - Constitutional Appears: Well, Non-toxic, No Acute Distress - Extremities Exam Extremities Exam: absent: Calf Tenderness Additional comments: Vasc: DP and PT weakly palpable, temperature gradient WNL, no increase warmth noted to the right LE, CFT delayed x10 seconds Ortho: severe pain with palpation to the foot below the ankle, no pain with palpation to the calf Neuro: gross and protective sensation diminished Derm: calluses at the plantar heel measuring approximately 1 x 1 cm, no underlying ulceration appreciated, no open lesions erythema noted to the entire right foot below the ankle, mild erythema noted to the entire right LE-improved scaly circular lesions noted to the bilaterally foot - Neurological Exam Neurological Exam: Alert, Awake, Oriented x3 - Psychiatric Exam Psychiatric exam: Normal Affect, Normal Mood Assessment and Plan - Assessment and Plan (Free Text) Assessment: 82 y.o female with PMH of HTN, DM, anxiety with DVT and improving cellulitis with tinea pedis seen and evaluated at bedside. Plan: Patient examined and evaluated Discussed plan in detail with attending Dr. Kennedy Labs, charts, vitals reviewed U/S reviewed- DVT of right LE DVT treatment per primary team Foot X-ray no fracture noted, cystic changes noted to proximal right 3rd metatarsal f/u uric acid Lotrimin for tinea pedis c/w abx for cellulitis Patient stable per podiatry standpoint with resolving cellulitis Patient can follow up with Dr. Kennedy as an outpatient within 1 week upon discharge Please call to make an appointment
--- NOTE | 2017-11-24 13:11 | CP.PCM.PN ---
Objective - Vital Signs/Intake and Output Vital Signs (last 24 hours): Temp Pulse Resp BP Pulse Ox 98 F 66 18 151/70 H 100 11/24/17 11:57 11/24/17 11:57 11/24/17 11:57 11/24/17 11:57 11/24/17 11:57 - Medications Medications: Current Medications Acetaminophen (Tylenol 325mg Tab) 650 mg PO Q4 PRN PRN Reason: Pain, Mild (1-3) Last Admin: 11/22/17 04:25 Dose: 650 mg Alprazolam (Xanax) 0.5 mg PO Q12 [facility] Stop: 11/28/17 21:01 Last Admin: 11/24/17 08:34 Dose: Not Given Apixaban (Eliquis) 5 mg PO BID@0500,1700 [facility] PRN Reason: Protocol Last Admin: 11/24/17 04:38 Dose: 5 mg Aspirin (Ecotrin) 81 mg PO DAILY [facility] Last Admin: 11/24/17 08:33 Dose: 81 mg Carvedilol (Coreg) 3.125 mg PO BID [facility] Last Admin: 11/24/17 08:32 Dose: 3.125 mg Clotrimazole (Lotrimin 1% Cream) 1 applic TOP BID [facility] Last Admin: 11/23/17 17:25 Dose: 1 applic Dicyclomine HCl (Bentyl) 10 mg PO TID PRN PRN Reason: Other Fluconazole (Diflucan) 100 mg PO DAILY [facility] PRN Reason: Protocol Stop: 11/25/17 11:00 Last Admin: 11/24/17 08:32 Dose: 100 mg Cefazolin Sodium 1 gm/ Sodium (Chloride) 100 mls @ 100 mls/hr IVPB Q8H [facility] PRN Reason: Protocol Last Admin: 11/24/17 08:29 Dose: 100 mls/hr Insulin Detemir (Levemir) 8 units SC HS [facility] Last Admin: 11/23/17 22:05 Dose: Not Given Insulin Human Lispro (Humalog) 8 units SC AC [facility] Last Admin: 11/24/17 08:33 Dose: Not Given Insulin Human Lispro (Humalog) 0 units SC ACHS [facility] Last Admin: 11/24/17 06:31 Dose: Not Given Losartan Potassium (Cozaar) 50 mg PO DAILY [facility] Last Admin: 11/24/17 08:32 Dose: 50 mg Tramadol HCl (Ultram) 50 mg PO Q6 PRN PRN Reason: Pain, moderate (4-7) Last Admin: 11/22/17 21:22 Dose: 50 mg - Labs Labs: 11/23/17 04:20 11/23/17 04:20 PT 11.7 Seconds (9.8-13.1) 11/23/17 04:20 INR 1.1 (0.9-1.2) 11/23/17 04:20 APTT 29.6 Seconds (25.6-37.1) D 11/23/17 04:20 Assessment and Plan (1) Cellulitis of right lower extremity Status: Acute (2) Deep vein thrombosis (DVT) of right lower extremity Status: Acute (3) HTN (hypertension) Status: Chronic (4) Anxiety Status: Chronic (5) Status post total hip replacement, right Status: Chronic (6) History of arterial embolism Status: Chronic (7) Diabetes mellitus Status: Chronic (8) Hyperglycemia Status: Acute
--- NOTE | 2017-11-24 16:06 | PN ---
DATE: ENDO FOLLOWUP NOTE LOCATION: Room 402. SUBJECTIVE: This is an 82-year-old female with recent uncontrolled type 2 insulin-requiring diabetes, now being followed closely for metabolic management. Her glycemic levels are fluctuating, but improved and the glucose values overnight have ranged from 108-134 and 218 mg/dL. However, at noon time, her glucose levels nasir to 332 mg/dL. Her latest chemistry showed BUN of 19, sodium of 137, potassium of 4.3, chloride of 104, CO2 of 25, glucose of 233, and creatinine of 0.8. So at this time, we will modify once again her basal and bolus insulin regimen and increase the Levemir to 8 units subcu at bedtime daily to start tonight. We will also increase her Humalog to 12 units subcu t.i.d. before meals as ordered. She will follow with , her primary physician for outpatient diabetic and medical management. We will follow. Ariadne Carson MD
[2017-11-24] MEDS ORDERED: Insulin Lispro (humaLOG) 100 Units/ml Inj SC SCH (16:30)
--- NOTE | 2017-11-24 16:55 | CP.PCM.DIS ---
Provider - Provider Date of Admission: 11/21/17 14:12 Attending physician: Harvey Sarah MD Diagnosis - Discharge Diagnosis (1) Cellulitis of right lower extremity Status: Acute Priority: High (2) Deep vein thrombosis (DVT) of right lower extremity Status: Acute Priority: High (3) HTN (hypertension) Status: Chronic Priority: Medium (4) Anxiety Status: Chronic Priority: Medium (5) Status post total hip replacement, right Status: Chronic Priority: Medium (6) History of arterial embolism Status: Chronic Priority: Medium (7) Diabetes mellitus Status: Chronic (8) Hyperglycemia Status: Acute Hospital Course - Lab Results Lab Results: Micro Results 11/21/17 12:00 Blood Blood Culture - Preliminary NO GROWTH AFTER 3 DAYS 11/21/17 11:20 Blood Blood Culture - Preliminary NO GROWTH AFTER 3 DAYS 11/21/17 14:01 Urine Urine Culture - Final MULTIPLE SPECIES. SUGGEST REPEAT SPECIMEN. Most Recent Lab Values WBC 7.4 K/uL (4.8-10.8) 11/23/17 04:20 RBC 4.40 Mil/uL (3.80-5.20) 11/23/17 04:20 Hgb 11.7 g/dL (12.0-16.0) L 11/23/17 04:20 Hct 36.0 % (34.0-47.0) 11/23/17 04:20 MCV 81.8 fl (81.0-99.0) 11/23/17 04:20 MCH 26.6 pg (27.0-31.0) L 11/23/17 04:20 MCHC 32.5 g/dL (33.0-37.0) L 11/23/17 04:20 RDW 15.0 % (11.5-14.5) H 11/23/17 04:20 Plt Count 296 K/uL (130-400) 11/23/17 04:20 MPV 8.0 fl (7.2-11.7) 11/21/17 11:29 Neut % (Auto) 61.8 % (50.0-75.0) 11/21/17 11:29 Lymph % (Auto) 28.3 % (20.0-40.0) 11/21/17 11:29 [place] % (Auto) 6.1 % (0.0-10.0) 11/21/17 11:29 Eos % (Auto) 2.5 % (0.0-4.0) 11/21/17 11:29 Baso % (Auto) 1.3 % (0.0-2.0) 11/21/17 11:29 Neut # (Auto) 4.9 K/uL (1.8-7.0) 11/21/17 11: Lymph # (Auto) 2.3 K/uL (1.0-4.3) 11/21/17 11:29 [place] # (Auto) 0.5 K/uL (0.0-0.8) 11/21/17 11: Eos # (Auto) 0.2 K/uL (0.0-0.7) 11/21/17 11: Baso # (Auto) 0.1 K/uL (0.0-0.2) 11/21/17 11: PT 11.7 Seconds (9.8-13.1) 11/23/17 04:20 INR 1.1 (0.9-1.2) 11/23/17 04:20 APTT 29.6 Seconds (25.6-37.1) D 11/23/17 04:20 pO2 31 mm/Hg (30-55) 11/21/17 10:32 VBG pH 7.36 (7.32-7.43) 11/21/17 10:32 VBG pCO2 50 mmHg (40-60) 11/21/17 10:32 VBG HCO3 25.5 mmol/L 11/21/17 10:32 VBG Total CO2 29.7 mmol/L (22-28) H 11/21/17 10:32 VBG O2 Sat (Calc) 66.2 % (40-65) H 11/21/17 10:32 VBG Base Excess 1.9 mmol/L (0.0-2.0) 11/21/17 10:32 VBG Potassium 4.3 mmol/L (3.6-5.2) 11/21/17 10:32 Sodium 138.0 mmol/L (132-148) 11/21/17 10:32 Chloride 106.0 mmol/L (98-107) 11/21/17 10:32 Glucose 282 mg/dL (65-105) H 11/21/17 10:32 Lactate 2.3 mmol/L (0.7-2.1) H 11/21/17 10:32 FiO2 21.0 % 11/21/17 10:32 Sodium 137 mmol/l (132-148) 11/23/17 04:20 Potassium 4.3 MMOL/L (3.6-5.0) 11/23/17 04:20 Chloride 104 mmol/L (98-107) 11/23/17 04:20 Carbon Dioxide 25 mmol/L (22-30) 11/23/17 04:20 Anion Gap 12 (10-20) 11/23/17 04:20 BUN 19 mg/dl (7-17) H 11/23/17 04:20 Creatinine 0.8 mg/dl (0.7-1.2) 11/23/17 04:20 Est GFR ( Amer) > 60 11/23/17 04:20 Est GFR (Non-Af Amer) > 60 11/23/17 04:20 POC Glucose (mg/dL) 332 mg/dL (65-110) H 11/24/17 10:59 Random Glucose 233 mg/dL (65-105) H 11/23/17 04:20 Hemoglobin A1c 9.3 % (4.2-6.5) H 11/22/17 06:04 Calcium 8.3 mg/dL (8.4-10.2) L 11/23/17 04:20 Phosphorus 2.9 mg/dl (2.5-4.5) 11/21/17 11:29 Magnesium 1.7 MG/DL (1.6-2.3) 11/21/17 11:29 Total Bilirubin 0.2 mg/dl (0.2-1.3) 11/23/17 04:20 AST 27 U/L (14-36) 11/23/17 04:20 ALT 18 U/L (9-52) 11/23/17 04:20 Alkaline Phosphatase 91 U/L (38-126) 11/23/17 04:20 Troponin I < 0.0120 ng/mL (0.00-0.120) 11/21/17 11:29 Total Protein 5.6 G/DL (6.3-8.2) L 11/23/17 04:20 Albumin 2.9 g/dL (3.5-5.0) L 11/23/17 04:20 Globulin 2.7 gm/dL (2.2-3.9) 11/23/17 04:20 Albumin/Globulin Ratio 1.1 (1.0-2.1) 11/23/17 04:20 Triglycerides 222 mg/DL (0-149) H 11/22/17 06:04 Cholesterol 156 mg/dL (0-199) 11/22/17 06:04 LDL Cholesterol Direct 86 mg/dL (0-129) 11/22/17 06:04 HDL Cholesterol 31 MG/DL (30-70) 11/22/17 06:04 Thyroxine (T4) 8.45 ug/dl (5.5-11.0) 11/22/17 06:04 TSH 3rd Generation 1.66 mIU/ML (0.46-4.68) 11/22/17 06:04 Venous Blood Potassium 4.3 mmol/L (3.6-5.2) 11/21/17 10:32 Urine Color Yellow (YELLOW) 11/21/17 14:01 Urine Clarity Slighty-cloudy (Clear) 11/21/17 14:01 Urine pH 6.0 (5.0-8.0) 11/21/17 14:01 Ur Specific Rumely 1.012 (1.003-1.030) 11/21/17 14:01 Urine Protein Negative mg/dL (NEGATIVE) 11/21/17 14:01 Urine Glucose (UA) >=500 mg/dL (Normal) 11/21/17 14:01 Urine Ketones Negative mg/dL (NEGATIVE) 11/21/17 14:01 Urine Blood Negative (NEGATIVE) 11/21/17 14:01 Urine Nitrate Negative (NEGATIVE) 11/21/17 14:01 Urine Bilirubin Negative (NEGATIVE) 11/21/17 14:01 Urine Urobilinogen 0.2-1.0 mg/dL (0.2-1.0) 11/21/17 14:01 Ur Leukocyte Esterase Neg Shantel/uL (Negative) 11/21/17 14:01 Urine RBC (Auto) 1 /hpf (0-3) 11/21/17 14:01 Urine Microscopic WBC 1 /hpf (0-5) 11/21/17 14:01 Ur Squamous Epith Cells 1 /hpf (0-5) 11/21/17 14:01 Discharge Exam - Head Exam Head Exam: NORMAL INSPECTION Discharge Plan - Discharge Medications Prescriptions: ceFAZolin 1 gm in NS [Ancef 1GM in NS] 1 gm IV Q8 #10 bag - Follow Up Plan Condition: FAIR Disposition: REHAB FACILITY/REHAB UNIT Instructions: Pulmonary Embolism (DC), Pulmonary Embolism (GEN), Deep Venous Thrombosis (DC), Deep Venous Thrombosis (GEN)
[2017-11-25 22:02] LABS: CARDIOLIPIN AB (IGA) <11 APL (<=11); CARDIOLIPIN AB (IGG) <14 GPL (<=14)
[2017-11-25 22:22] LABS: PHOSPHATIDYLSERINE AB IGG <10 U/mL (<10); PHOSPHATIDYLSERINE AB IGM <25 U/mL (<25)
[2017-11-25 23:07] LABS: B2 GLYCOPROTEIN I AB(IGA) <9 SAU (<=20); B2 GLYCOPROTEIN I AB(IGG) <9 SGU (<=20); B2 GLYCOPROTEIN I AB(IGM) <9 SMU (<=20); CARDIOLIPIN AB (IGM) <12 MPL (<=12); PHOSPHATIDYLSERINE AB IGA <20 U/mL (<20)
== END 2017-11-24 14:45 | DRG 300 ==
LOC: H.ER 08:58 → H.ERHOLD 14:12 → H.TEL 18:26
PROVIDERS: ADMIT Internal Medicine Pulmonary Disease; ATTEND Internal Medicine Pulmonary Disease
DX: I82.431 Acute embolism and thrombosis of right popliteal vein (principal); L03.115 Cellulitis of right lower limb; E11.42 Type 2 diabetes mellitus with diabetic polyneuropathy; E11.319 Type 2 diabetes mellitus with unspecified diabetic retinopathy without macular edema; E11.65 Type 2 diabetes mellitus with hyperglycemia; I82.441 Acute embolism and thrombosis of right tibial vein; E86.0 Dehydration; Z96.641 Presence of right artificial hip joint; F41.9 Anxiety disorder, unspecified; E78.00 Pure hypercholesterolemia, unspecified; Z79.4 Long term (current) use of insulin; E78.5 Hyperlipidemia, unspecified; E11.51 Type 2 diabetes mellitus with diabetic peripheral angiopathy without gangrene; I69.331 Monoplegia of upper limb following cerebral infarction affecting right dominant side; K29.70 Gastritis, unspecified, without bleeding; B35.3 Tinea pedis; I10 Essential (primary) hypertension; R30.0 Dysuria

== ENCOUNTER 2017-11-24 14:33 | Inpatient (IN) | payer OTHER, MEDICAID ==
[2017-11-24 15:15] VITALS: BMI 27.0
[2017-11-24] MEDS ORDERED: Insulin Lispro (humaLOG) 100 Units/ml Inj SC SCH (16:30)
[2017-11-24] MEDS ORDERED: INSULIN ASPART SQ SCH (17:00)
[2017-11-24] MEDS ORDERED: [UNRECOGNIZED DRUG - OTHER] SQ SCH (17:00)
[2017-11-24] MEDS: ceFAZolin 1 GM in Sodium Chloride 0.9% 100 ML IVPB SCH (17:27)
[2017-11-24] MEDS: Insulin Detemir 100 Units/ml Inj SC SCH (21:09)
[2017-11-25] MEDS: ceFAZolin 1 GM in Sodium Chloride 0.9% 100 ML IVPB SCH ×2 (00:10→08:42)
[2017-11-25] MEDS: Insulin Lispro (humaLOG) 100 Units/ml Inj SC SCH ×3 (07:40→16:16)
[2017-11-25 07:56] VITALS: RESP 20
[2017-11-25] MEDS ORDERED: Lidocaine 5% Patch TD SCH (09:15)
--- NOTE | 2017-11-25 09:59 | CP.PCM.CON ---
History of Present Illness - History of Present Illness History of Present Illness: Podiatry Consult Note- Dr. Kennedy 82 y.o female with PMH of HTN, DM, anxiety seen and evaluated for painful right foot. Patient was seen at [facility] prior to being transferred to TCU for continued treatment of right leg DVT. Patient complains of right burning pain. Reports that the pain has somewhat improves during hospital stay. Redness and swelling has improves. Still concern about the burning pain. Denies calf pain or tenderness. Denies chest pain, chills, fever, shortness of breath, or vomiting. PMH: HTN, DM, anxiety, L arm blood clot, mini stroke left hand PSH: gall bladder removal, R hip replacement MEDS: see medication list ALL: NKDA -reports does not feel well with cortisol FH-mom DM SH: denies smoking, drinking or illicit drug use Past Patient History - Infectious Disease Hx of Infectious Diseases: None - Tetanus Immunizations Tetanus Immunization: Unknown - Past Medical History & Family History Past Medical History?: Yes - Past Social History Smoking Status: Never Smoked - CARDIAC Hx Hypercholesterolemia: Yes Hx Hypertension: Yes - PULMONARY Hx Respiratory Disorders: Yes Other/Comment: Hx Allergic Rhinitis - NEUROLOGICAL HX Cerebrovascular Accident: Yes - HEENT Hx HEENT Problems: Yes Hx Cataracts: Yes Other/Comment: Allergic Rhinitis - RENAL Hx Chronic Kidney Disease: No Other/Comment: Recurrent UTI's - ENDOCRINE/METABOLIC Hx Diabetes Mellitus Type 2: Yes - HEMATOLOGICAL/ONCOLOGICAL Hx Blood Disorders: Yes (DVT) Other/Comment: Arterial embolus LUE with embolectomy L subclavian 2015 - INTEGUMENTARY Hx Dermatological Problems: No - MUSCULOSKELETAL/RHEUMATOLOGICAL Hx Arthritis: Yes - GASTROINTESTINAL Hx Gastritis: Yes (Hiatus Hernia) - GENITOURINARY/GYNECOLOGICAL Hx Genitourinary Disorders: Yes (UTI recurrent) - PSYCHIATRIC Hx Anxiety: Yes Hx Substance Use: No - SURGICAL HISTORY Hx Cholecystectomy: Yes Hx Orthopedic Surgery: Yes (Right THR) Other/Comment: LUE Arterial Embolectomy 2015 - ANESTHESIA Hx Anesthesia: Yes Hx Anesthesia Reactions: No Hx Malignant Hyperthermia: No Has any member of the family had a problem w/ anesthesia?: No Meds Allergies/Adverse Reactions: Allergies Allergy/AdvReac Type Severity Reaction Status Date / Time No Known Allergies Allergy Verified 11/21/17 09:55 - Medications Medications: Current Medications Alprazolam (Xanax) 0.5 mg PO Q12 [facility] Last Admin: 11/25/17 08:49 Dose: 0.5 mg Apixaban (Eliquis) 5 mg PO BID@0500,1700 [facility] PRN Reason: Protocol Last Admin: 11/25/17 04:27 Dose: 5 mg Aspirin (Ecotrin) 81 mg PO DAILY [facility] Last Admin: 11/25/17 08:47 Dose: 81 mg Carvedilol (Coreg) 3.125 mg PO BID [facility] Last Admin: 11/25/17 08:45 Dose: 3.125 mg Clotrimazole (Lotrimin 1% Cream) 1 applic TOP BID [facility] Last Admin: 11/25/17 08:46 Dose: 1 units Dicyclomine HCl (Bentyl) 10 mg PO TID PRN PRN Reason: Other Fluconazole (Diflucan) 100 mg PO DAILY [facility] PRN Reason: Protocol Last Admin: 11/25/17 08:42 Dose: 100 mg Cefazolin Sodium 1 gm/ Sodium (Chloride) 100 mls @ 100 mls/hr IVPB Q8 [facility] Last Admin: 11/25/17 08:42 Dose: 100 mls/hr Insulin Detemir (Levemir) 8 units SC HS [facility] Last Admin: 11/24/17 21:09 Dose: 8 units Insulin Human Lispro (Humalog) 12 units SC TIDAC [facility] Last Admin: 11/25/17 07:40 Dose: 12 u Lidocaine (Lidoderm) 1 ea TD DAILY [facility] Losartan Potassium (Cozaar) 50 mg PO DAILY [facility] Last Admin: 11/25/17 08:44 Dose: 50 mg Tramadol HCl (Ultram) 50 mg PO Q6 PRN PRN Reason: Pain, moderate (4-7) Physical Exam - Constitutional Appears: Well, Non-toxic, No Acute Distress - Extremities Exam Extremities exam: Negative for: calf tenderness Additional comments: Vasc: DP and PT weakly palpable, temperature gradient WNL, no increase warmth noted to the right LE, CFT delayed x10 seconds Ortho: moderate pain with palpation to the foot below the ankle, no pain with palpation to the calf Neuro: gross and protective sensation diminished Derm: calluses at the plantar heel measuring approximately 1 x 1 cm, no underlying ulceration appreciated, no open lesions erythema noted to the entire right foot below the ankle, mild erythema noted to the entire right LE scaly circular lesions noted to the bilaterally foot improved redness improved swelling Results - Vital Signs Recent Vital Signs: Last Vital Signs Temp 97.5 F L 11/25/17 07:55 Pulse 74 11/25/17 09:08 Resp 20 11/25/17 07:55 BP 148/78 11/25/17 09:08 Pulse Ox 98 11/25/17 09:08 - Labs Labs: Laboratory Results - last 24 hr 11/24/17 11/24/17 11/25/17 16:33 20:43 06:13 POC Glucose (mg/dL) 213 H 244 H 249 H Assessment & Plan - Assessment and Plan (Free Text) Assessment: 82 y.o female with PMH of HTN, DM, anxiety with DVT and improving cellulitis with tinea pedis seen and evaluated at bedside Plan: Patient examined and evaluated Discussed plan in detail with attending Dr. Kennedy Labs, charts, vitals reviewed U/S reviewed- DVT of right LE DVT treatment per primary team Foot X-ray no fracture noted, cystic changes noted to proximal right 3rd metatarsal f/u uric acid Lotrimin for tinea pedis c/w abx for cellulitis Patient stable per podiatry standpoint with resolving cellulitis Patient can follow up with Dr. Kennedy as an outpatient within 1 week upon discharge Patient can be further workup as an outpatient for burning pain if still persist after discharge Please call to make an appointment
[2017-11-25] MEDS: Lidocaine 5% Patch TD SCH (10:37)
--- NOTE | 2017-11-25 15:31 | CP.PCM.HP ---
History of Present Illness - History of Present Illness History of Present Illness: 82 y/o F, with previous admission to [facility] on , due to R foot Cellulitis, RLE DVT. On 11/24/17, Pt was transferred to TCU unit to continue abx treatment and PT, OT. Pt c/o of pain in R foot. Present on Admission - Present on Admission Any Indicators Present on Admission: Yes History of DVT/PE: Yes Review of Systems - Constitutional Constitutional: Weakness (LUE) - EENT Eyes: Other (negative) Ears: Other (negative) Nose/Mouth/Throat: Other - Cardiovascular Cardiovascular: Other (negative) - Respiratory Respiratory: Other (negative) - Gastrointestinal Gastrointestinal: Other (negative) - Genitourinary Genitourinary: Other (negative) - Musculoskeletal Musculoskeletal: Arthralgias, Other (RLE, R foot) - Integumentary Integumentary: Wounds (healing) - Neurological Neurological: Weakness (LUE) - Psychiatric Psychiatric: Anxiety - Endocrine Endocrine: Other (negative) - Hematologic/Lymphatic Hematologic: Other (negative) Past Patient History - Infectious Disease Hx of Infectious Diseases: None - Tetanus Immunizations Tetanus Immunization: Unknown - Past Medical History & Family History Past Medical History?: Yes Pertinent Family History: Son: O/A, TKR - Past Social History Smoking Status: Never Smoked Alcohol: None Drugs: Denies Home Situation {Lives}: With Family - CARDIAC Hx Cardiac Disorders: Yes Hx Hypercholesterolemia: Yes Hx Hypertension: Yes - PULMONARY Hx Respiratory Disorders: Yes Other/Comment: Hx Allergic Rhinitis - NEUROLOGICAL Hx Neurological Disorder: Yes HX Cerebrovascular Accident: Yes - HEENT Hx HEENT Problems: Yes Hx Cataracts: Yes Other/Comment: Allergic Rhinitis - RENAL Hx Chronic Kidney Disease: No Other/Comment: Recurrent UTI's - ENDOCRINE/METABOLIC Hx Endocrine Disorders: Yes Hx Diabetes Mellitus Type 2: Yes - HEMATOLOGICAL/ONCOLOGICAL Hx Blood Disorders: Yes (DVT) Other/Comment: Arterial embolus LUE with embolectomy L subclavian 2016 - INTEGUMENTARY Hx Dermatological Problems: No - MUSCULOSKELETAL/RHEUMATOLOGICAL Hx Musculoskeletal Disorders: Yes Hx Arthritis: Yes - GASTROINTESTINAL Hx Gastrointestinal Disorders: Yes Hx Gastritis: Yes (Hiatus Hernia) - GENITOURINARY/GYNECOLOGICAL Hx Genitourinary Disorders: Yes (UTI recurrent) - PSYCHIATRIC Hx Psychophysiologic Disorder: Yes Hx Anxiety: Yes Hx Substance Use: No - SURGICAL HISTORY Hx Cholecystectomy: Yes Hx Orthopedic Surgery: Yes (Right THR) Other/Comment: STEVE Arterial Embolectomy 2016 - ANESTHESIA Hx Anesthesia: Yes Hx Anesthesia Reactions: No Hx Malignant Hyperthermia: No Has any member of the family had a problem w/ anesthesia?: No Meds Allergies/Adverse Reactions: Allergies Allergy/AdvReac Type Severity Reaction Status Date / Time No Known Allergies Allergy Verified 11/21/17 09:55 Physical Exam - Constitutional Appears: No Acute Distress, Chronically Ill - Head Exam Head Exam: NORMAL INSPECTION - Eye Exam Eye Exam: PERRL - ENT Exam ENT Exam: Normal Exam - Neck Exam Neck exam: Positive for: Normal Inspection - Respiratory Exam Respiratory Exam: NORMAL BREATHING PATTERN - Cardiovascular Exam Cardiovascular Exam: REGULAR RHYTHM, Systolic Murmur (1/6 LSB) - GI/Abdominal Exam GI & Abdominal Exam: Normal Bowel Sounds, Soft - Extremities Exam Additional comments: Redness/tenderness R distal foot and toe, healed ulcers R-L heels. - Back Exam Additional comments: mild redness on sacrum - Neurological Exam Neurological exam: Alert, CN II-XII Intact, Oriented x3 Additional comments: Weakness LUE, rest no focal motor/sensory deficit. - Psychiatric Exam Psychiatric exam: Anxious - Skin Skin Exam: Warm Results - Vital Signs Recent Vital Signs: Last Vital Signs Temp 97.5 F L 11/25/17 07:55 Pulse 74 11/25/17 09:08 Resp 20 11/25/17 07:55 BP 148/78 11/25/17 09:08 Pulse Ox 98 11/25/17 09:08 reviewed J.P. - Labs Labs: Laboratory Results - last 24 hr 11/24/17 11/24/17 11/25/17 16:33 20:43 06:13 POC Glucose (mg/dL) 213 H 244 H 249 H 11/25/17 10:52 POC Glucose (mg/dL) 178 H reviewed J.P. Assessment & Plan (1) Deep vein thrombosis (DVT) of right lower extremity Status: Acute Priority: High (2) Cellulitis of foot Status: Acute Priority: High (3) Hyperglycemia Status: Acute Priority: Medium (4) Diabetes mellitus Status: Chronic Priority: High (5) HTN (hypertension) Status: Chronic Priority: Medium (6) Status post total hip replacement, right Status: Chronic Priority: Medium (7) Anxiety Status: Chronic Priority: Medium - Assessment and Plan (Free Text) Plan: Worsening and redness of R food today, start Vanco Zosyn, and continue rest of Tx. - Date & Time Date: 11/25/17 Time: 13:00
[2017-11-25] MEDS: Piperacillin/Tazobact 3.375 GM in Sodium Chloride 0.9% 100 ML IVPB SCH (18:28)
[2017-11-25] MEDS: Insulin Detemir 100 Units/ml Inj SC SCH (22:19)
[2017-11-26] MEDS: Piperacillin/Tazobact 3.375 GM in Sodium Chloride 0.9% 100 ML IVPB SCH ×4 (00:24→17:23)
[2017-11-26] MEDS: Insulin Lispro (humaLOG) 100 Units/ml Inj SC SCH ×3 (07:20→17:19)
[2017-11-26] MEDS: Lidocaine 5% Patch TD SCH (08:44)
[2017-11-26 16:32] LABS: URINE 24 HOUR URIC ACID 518.4 mg/24hr (250-750); URINE URIC ACID 19.2 mg/dL
--- NOTE | 2017-11-26 18:26 | CP.PCM.PN ---
Subjective - Date & Time of Evaluation Date of Evaluation: 11/26/17 Time of Evaluation: 13:45 - Subjective Subjective: F/U DVT, Foot Cellulitis. Pain in R foot. Objective - Vital Signs/Intake and Output Vital Signs (last 24 hours): Temp Pulse Resp BP Pulse Ox 97.7 F 79 20 154/63 H 97 11/26/17 17:15 11/26/17 17:24 11/26/17 17:15 11/26/17 17:24 11/26/17 17:15 - Medications Medications: Current Medications Acetaminophen (Tylenol 325mg Tab) 650 mg PO Q4 PRN PRN Reason: Pain, moderate (4-7) Last Admin: 11/25/17 19:21 Dose: 650 mg Alprazolam (Xanax) 0.5 mg PO Q12 [facility] Last Admin: 11/26/17 08:46 Dose: 0.5 mg Apixaban (Eliquis) 5 mg PO BID@0500,1700 [facility] PRN Reason: Protocol Last Admin: 11/26/17 17:18 Dose: 5 mg Aspirin (Ecotrin) 81 mg PO DAILY [facility] Last Admin: 11/26/17 08:42 Dose: 81 mg Carvedilol (Coreg) 3.125 mg PO BID [facility] Last Admin: 11/26/17 17:24 Dose: 3.125 mg Clotrimazole (Lotrimin 1% Cream) 1 applic TOP BID [facility] Last Admin: 11/26/17 17:20 Dose: 1 units Dicyclomine HCl (Bentyl) 10 mg PO TID PRN PRN Reason: Other Fluconazole (Diflucan) 100 mg PO DAILY [facility] PRN Reason: Protocol Last Admin: 11/26/17 08:42 Dose: 100 mg Vancomycin HCl 1 gm/ Sodium (Chloride) 250 mls @ 166.667 mls/hr IVPB Q12@0500, 1700 [facility] PRN Reason: Protocol Stop: 12/02/17 17:01 Last Admin: 11/26/17 17:22 Dose: 166.667 mls/hr Piperacillin Sod/Tazobactam (Sod 3.375 gm/ Sodium Chloride) 100 mls @ 100 mls/ hr IVPB 0600,1200,1800,0000 [facility] PRN Reason: Protocol Stop: 12/02/17 18:01 Last Admin: 11/26/17 17:23 Dose: 100 mls/hr Insulin Detemir (Levemir) 8 units SC HS [facility] Last Admin: 11/25/17 22:19 Dose: 8 units Insulin Human Lispro (Humalog) 12 units SC TIDAC [facility] Last Admin: 11/26/17 17:19 Dose: 12 u Lidocaine (Lidoderm) 1 ea TD DAILY [facility] Last Admin: 11/26/17 08:44 Dose: 1 ea Losartan Potassium (Cozaar) 50 mg PO DAILY [facility] Last Admin: 11/26/17 08:42 Dose: 50 mg Tramadol HCl (Ultram) 50 mg PO Q6 PRN PRN Reason: Pain, moderate (4-7) - Constitutional Appears: Chronically Ill - Head Exam Head Exam: NORMAL INSPECTION - Eye Exam Eye Exam: PERRL - ENT Exam ENT Exam: Normal Exam - Neck Exam Neck Exam: Normal Inspection - Respiratory Exam Respiratory Exam: NORMAL BREATHING PATTERN - Cardiovascular Exam Cardiovascular Exam: REGULAR RHYTHM, Murmur (systolic 1/6 LSB) - GI/Abdominal Exam GI & Abdominal Exam: Soft, Normal Bowel Sounds - Extremities Exam Extremities Exam: Tenderness (and redness distal dorsum R foot and toes, healed ulcers R-L heel) - Back Exam Back Exam: NORMAL INSPECTION - Neurological Exam Neurological Exam: Alert, CN II-XII Intact, Oriented x3 Additional comments: Weakness LUE, rest no focal motor/sensory deficit. - Psychiatric Exam Psychiatric exam: Anxious - Skin Skin Exam: Warm Assessment and Plan (1) Deep vein thrombosis (DVT) of right lower extremity Status: Acute (2) Cellulitis of foot Status: Acute (3) Hyperglycemia Status: Acute (4) Diabetes mellitus Status: Chronic (5) HTN (hypertension) Status: Chronic (6) Status post total hip replacement, right Status: Chronic (7) Anxiety Status: Chronic - Assessment and Plan (Free Text) Plan: Continue Zosyn, Vanco, rest of Tx, PT,O.
[2017-11-26] MEDS: Insulin Detemir 100 Units/ml Inj SC SCH (21:31)
[2017-11-27] MEDS: Piperacillin/Tazobact 3.375 GM in Sodium Chloride 0.9% 100 ML IVPB SCH ×4 (00:12→17:31)
[2017-11-27] MEDS: Insulin Lispro (humaLOG) 100 Units/ml Inj SC SCH ×3 (07:08→16:33)
[2017-11-27] MEDS: Lidocaine 5% Patch TD SCH (09:08)
--- NOTE | 2017-11-27 13:47 | CP.PCM.PN ---
Subjective - Date & Time of Evaluation Date of Evaluation: 11/27/17 - Subjective Subjective: F/U DVT, R foot cellulitis. Pt continue with pain in R foot. Objective - Vital Signs/Intake and Output Vital Signs (last 24 hours): Temp Pulse Resp BP Pulse Ox 97.7 F 76 20 183/76 H 97 11/27/17 09:05 11/27/17 09:07 11/27/17 09:05 11/27/17 09:07 11/27/17 09:05 - Medications Medications: Current Medications Acetaminophen (Tylenol 325mg Tab) 650 mg PO Q4 PRN PRN Reason: Pain, moderate (4-7) Last Admin: 11/25/17 19:21 Dose: 650 mg Alprazolam (Xanax) 0.5 mg PO Q12 [facility] Last Admin: 11/27/17 09:05 Dose: 0.5 mg Apixaban (Eliquis) 5 mg PO BID@0500,1700 [facility] PRN Reason: Protocol Last Admin: 11/27/17 05:00 Dose: 5 mg Aspirin (Ecotrin) 81 mg PO DAILY [facility] Last Admin: 11/27/17 09:08 Dose: 81 mg Carvedilol (Coreg) 3.125 mg PO BID [facility] Last Admin: 11/27/17 09:05 Dose: 3.125 mg Clotrimazole (Lotrimin 1% Cream) 1 applic TOP BID [facility] Last Admin: 11/27/17 09:00 Dose: 1 applic Dicyclomine HCl (Bentyl) 10 mg PO TID PRN PRN Reason: Other Last Admin: 11/27/17 10:44 Dose: 10 mg Fluconazole (Diflucan) 100 mg PO DAILY [facility] PRN Reason: Protocol Last Admin: 11/27/17 09:07 Dose: 100 mg Vancomycin HCl 1 gm/ Sodium (Chloride) 250 mls @ 166.667 mls/hr IVPB Q12@0500, 1700 [facility] PRN Reason: Protocol Stop: 12/02/17 17:01 Last Admin: 11/27/17 04:45 Dose: 166.667 mls/hr Piperacillin Sod/Tazobactam (Sod 3.375 gm/ Sodium Chloride) 100 mls @ 100 mls/ hr IVPB 0600,1200,1800,0000 [facility] PRN Reason: Protocol Stop: 12/02/17 18:01 Last Admin: 11/27/17 12:33 Dose: 100 mls/hr Insulin Detemir (Levemir) 8 units SC HS [facility] Last Admin: 11/26/17 21:31 Dose: 8 units Insulin Human Lispro (Humalog) 12 units SC TIDAC [facility] Last Admin: 11/27/17 12:29 Dose: 12 u Lidocaine (Lidoderm) 1 ea TD DAILY [facility] Last Admin: 11/27/17 09:08 Dose: 1 ea Losartan Potassium (Cozaar) 50 mg PO DAILY [facility] Last Admin: 11/27/17 09:07 Dose: 50 mg Tramadol HCl (Ultram) 50 mg PO Q6 PRN PRN Reason: Pain, moderate (4-7) - Constitutional Appears: Chronically Ill - Head Exam Head Exam: NORMAL INSPECTION - Eye Exam Eye Exam: PERRL - ENT Exam ENT Exam: Normal Exam - Neck Exam Neck Exam: Normal Inspection - Respiratory Exam Respiratory Exam: NORMAL BREATHING PATTERN - Cardiovascular Exam Cardiovascular Exam: REGULAR RHYTHM, Murmur (systolic 1/6 LSB) - GI/Abdominal Exam GI & Abdominal Exam: Soft, Normal Bowel Sounds - Extremities Exam Additional comments: Tenderness and redness distal dorsum R foot, healed ulcers R-L heel Assessment and Plan (1) Deep vein thrombosis (DVT) of right lower extremity Status: Acute (2) Cellulitis of foot Status: Acute (3) Hyperglycemia Status: Acute (4) Diabetes mellitus Status: Chronic (5) HTN (hypertension) Status: Chronic (6) Status post total hip replacement, right Status: Chronic (7) Anxiety Status: Chronic - Assessment and Plan (Free Text) Plan: MRI of the R foot if R THR compatible to MRI. Continue Vanco, Zosyn and rest of Tx.
--- NOTE | 2017-11-27 15:15 | CP.PCM.CON ---
History of Present Illness - History of Present Illness History of Present Illness: 82 yo F with pmhx of htn, DM, anxiety currently admitted for right foot cellulitis and RLE DVT presents s/p RTHR in 07/2017. Orthopaedics consulted for rigth hip evaluation and THR compatibility with right foot MRI. pt denies any current right hip pain. Pt c/o right foot pain and erythema. Pt denies any SOB, chest pain, N/V/D, fever/chills, right hip wound drainage. Past Patient History - Infectious Disease Hx of Infectious Diseases: None - Tetanus Immunizations Tetanus Immunization: Unknown - Past Medical History & Family History Past Medical History?: Yes - Past Social History Smoking Status: Never Smoked Alcohol: None Drugs: Denies Home Situation {Lives}: With Family - CARDIAC Hx Cardiac Disorders: Yes Hx Hypercholesterolemia: Yes Hx Hypertension: Yes - PULMONARY Hx Respiratory Disorders: Yes Other/Comment: Hx Allergic Rhinitis - NEUROLOGICAL Hx Neurological Disorder: Yes HX Cerebrovascular Accident: Yes - HEENT Hx HEENT Problems: Yes Hx Cataracts: Yes Other/Comment: Allergic Rhinitis - RENAL Hx Chronic Kidney Disease: No Other/Comment: Recurrent UTI's - ENDOCRINE/METABOLIC Hx Endocrine Disorders: Yes Hx Diabetes Mellitus Type 2: Yes - HEMATOLOGICAL/ONCOLOGICAL Hx Blood Disorders: Yes (DVT) Other/Comment: Arterial embolus LUE with embolectomy L subclavian 2015 - INTEGUMENTARY Hx Dermatological Problems: No - MUSCULOSKELETAL/RHEUMATOLOGICAL Hx Musculoskeletal Disorders: Yes Hx Arthritis: Yes - GASTROINTESTINAL Hx Gastrointestinal Disorders: Yes Hx Gastritis: Yes (Hiatus Hernia) - GENITOURINARY/GYNECOLOGICAL Hx Genitourinary Disorders: Yes (UTI recurrent) - PSYCHIATRIC Hx Psychophysiologic Disorder: Yes Hx Anxiety: Yes Hx Substance Use: No - SURGICAL HISTORY Hx Cholecystectomy: Yes Hx Orthopedic Surgery: Yes (Right THR) Other/Comment: LUE Arterial Embolectomy 2016 - ANESTHESIA Hx Anesthesia: Yes Hx Anesthesia Reactions: No Hx Malignant Hyperthermia: No Has any member of the family had a problem w/ anesthesia?: No Meds Allergies/Adverse Reactions: Allergies Allergy/AdvReac Type Severity Reaction Status Date / Time No Known Allergies Allergy Verified 11/21/17 09:55 - Medications Medications: Current Medications Acetaminophen (Tylenol 325mg Tab) 650 mg PO Q4 PRN PRN Reason: Pain, moderate (4-7) Last Admin: 11/25/17 19:21 Dose: 650 mg Alprazolam (Xanax) 0.5 mg PO Q12 [facility] Last Admin: 11/27/17 09:05 Dose: 0.5 mg Apixaban (Eliquis) 5 mg PO BID@0500,1700 [facility] PRN Reason: Protocol Last Admin: 11/27/17 05:00 Dose: 5 mg Aspirin (Ecotrin) 81 mg PO DAILY [facility] Last Admin: 11/27/17 09:08 Dose: 81 mg Carvedilol (Coreg) 3.125 mg PO BID [facility] Last Admin: 11/27/17 09:05 Dose: 3.125 mg Clotrimazole (Lotrimin 1% Cream) 1 applic TOP BID [facility] Last Admin: 11/27/17 09:00 Dose: 1 applic Dicyclomine HCl (Bentyl) 10 mg PO TID PRN PRN Reason: Other Last Admin: 11/27/17 10:44 Dose: 10 mg Fluconazole (Diflucan) 100 mg PO DAILY [facility] PRN Reason: Protocol Last Admin: 11/27/17 09:07 Dose: 100 mg Vancomycin HCl 1 gm/ Sodium (Chloride) 250 mls @ 166.667 mls/hr IVPB Q12@0500, 1700 [facility] PRN Reason: Protocol Stop: 12/02/17 17:01 Last Admin: 11/27/17 04:45 Dose: 166.667 mls/hr Piperacillin Sod/Tazobactam (Sod 3.375 gm/ Sodium Chloride) 100 mls @ 100 mls/ hr IVPB 0600,1200,1800,0000 [facility] PRN Reason: Protocol Stop: 12/02/17 18:01 Last Admin: 11/27/17 12:33 Dose: 100 mls/hr Insulin Detemir (Levemir) 8 units SC HS [facility] Last Admin: 11/26/17 21:31 Dose: 8 units Insulin Human Lispro (Humalog) 12 units SC TIDAC [facility] Last Admin: 11/27/17 12:29 Dose: 12 u Lidocaine (Lidoderm) 1 ea TD DAILY [facility] Last Admin: 11/27/17 09:08 Dose: 1 ea Losartan Potassium (Cozaar) 50 mg PO DAILY [facility] Last Admin: 11/27/17 09:07 Dose: 50 mg Tramadol HCl (Ultram) 50 mg PO Q6 PRN PRN Reason: Pain, moderate (4-7) Physical Exam - Constitutional Appears: Well, No Acute Distress - Respiratory Exam Respiratory Exam: Clear to Auscultation Bilateral, NORMAL BREATHING PATTERN - Cardiovascular Exam Cardiovascular Exam: REGULAR RHYTHM, RRR - Extremities Exam Additional comments: RLE: right hip incision C/D/I +erythema to dorsal right foot N/V intact distally mild ttp right calf Distal pulses wnl Results - Vital Signs Recent Vital Signs: Last Vital Signs Temp 97.7 F 11/27/17 09:05 Pulse 76 11/27/17 09:07 Resp 20 11/27/17 09:05 BP 183/76 H 11/27/17 09:07 Pulse Ox 97 11/27/17 09:05 - Labs Labs: Laboratory Results - last 24 hr 11/25/17 11/26/17 11/26/17 10:00 10:54 15:43 POC Glucose (mg/dL) 258 H 97 Urine Collection Time 24 Urine Total Volume 2700 Ur Uric Acid 24 Hr [id number] 11/26/17 11/27/17 11/27/17 21:06 05:57 10:52 POC Glucose (mg/dL) 173 H 255 H 208 H Urine Collection Time Urine Total Volume Ur Uric Acid 24 Hr Assessment & Plan - Assessment and Plan (Free Text) Assessment: 82 yo F with pmhx of htn, DM, anxiety currently admitted for right foot cellulitis and RLE DVT presents s/p RTHR in 07/2017 Plan: Pt cleared to have MRI right foot s/p RTHR Right hip- continue PT/OT WBAT - follow weight bearing restrictions as per podiatry Pt can f/u as outpt regarding her right hip Continue current management as per primary team
[2017-11-27] MEDS: Insulin Detemir 100 Units/ml Inj SC SCH (22:06)
[2017-11-28] MEDS: Piperacillin/Tazobact 3.375 GM in Sodium Chloride 0.9% 100 ML IVPB SCH ×5 (00:13→23:30)
[2017-11-28] MEDS: Insulin Lispro (humaLOG) 100 Units/ml Inj SC SCH ×3 (06:52→16:55)
[2017-11-28] MEDS: Lidocaine 5% Patch TD SCH (08:36)
--- NOTE | 2017-11-28 14:35 | CP.PCM.PN ---
Subjective - Date & Time of Evaluation Date of Evaluation: 11/28/17 - Subjective Subjective: F/U DVT/Cellulitis R foot Pt c/o of pain in R foot but less than yesterday. Objective - Vital Signs/Intake and Output Vital Signs (last 24 hours): Temp Pulse Resp BP Pulse Ox 97.0 F L 61 20 169/59 H 99 11/28/17 08:06 11/28/17 08:35 11/28/17 08:06 11/28/17 08:35 11/28/17 08:06 - Medications Medications: Current Medications Acetaminophen (Tylenol 325mg Tab) 650 mg PO Q4 PRN PRN Reason: Pain, moderate (4-7) Last Admin: 11/25/17 19:21 Dose: 650 mg Alprazolam (Xanax) 0.5 mg PO Q12 [facility] Last Admin: 11/28/17 08:42 Dose: 0.5 mg Apixaban (Eliquis) 5 mg PO BID@0500,1700 [facility] PRN Reason: Protocol Last Admin: 11/28/17 05:47 Dose: 5 mg Aspirin (Ecotrin) 81 mg PO DAILY [facility] Last Admin: 11/28/17 08:36 Dose: 81 mg Carvedilol (Coreg) 3.125 mg PO BID [facility] Last Admin: 11/28/17 08:35 Dose: 3.125 mg Clotrimazole (Lotrimin 1% Cream) 1 applic TOP BID [facility] Last Admin: 11/28/17 08:36 Dose: 1 applic Dicyclomine HCl (Bentyl) 10 mg PO TID PRN PRN Reason: Other Last Admin: 11/27/17 10:44 Dose: 10 mg Fluconazole (Diflucan) 100 mg PO DAILY [facility] PRN Reason: Protocol Last Admin: 11/28/17 08:36 Dose: 100 mg Vancomycin HCl 1 gm/ Sodium (Chloride) 250 mls @ 166.667 mls/hr IVPB Q12@0500, 1700 [facility] PRN Reason: Protocol Stop: 12/02/17 17:01 Last Admin: 11/28/17 04:38 Dose: 166.667 mls/hr Piperacillin Sod/Tazobactam (Sod 3.375 gm/ Sodium Chloride) 100 mls @ 100 mls/ hr IVPB 0600,1200,1800,0000 [facility] PRN Reason: Protocol Stop: 12/02/17 18:01 Last Admin: 11/28/17 11:37 Dose: 100 mls/hr Insulin Detemir (Levemir) 8 units SC HS [facility] Last Admin: 11/27/17 22:06 Dose: 8 units Insulin Human Lispro (Humalog) 12 units SC TIDAC [facility] Last Admin: 11/28/17 11:36 Dose: 12 u Lidocaine (Lidoderm) 1 ea TD DAILY [facility] Last Admin: 11/28/17 08:36 Dose: 1 ea Losartan Potassium (Cozaar) 50 mg PO DAILY [facility] Last Admin: 11/28/17 08:35 Dose: 50 mg Tramadol HCl (Ultram) 50 mg PO Q6 PRN PRN Reason: Pain, moderate (4-7) Last Admin: 11/28/17 00:19 Dose: 50 mg - Constitutional Appears: Chronically Ill - Head Exam Head Exam: NORMAL INSPECTION - Eye Exam Eye Exam: PERRL - ENT Exam ENT Exam: Normal Exam - Neck Exam Neck Exam: Normal Inspection - Respiratory Exam Respiratory Exam: NORMAL BREATHING PATTERN - Cardiovascular Exam Cardiovascular Exam: REGULAR RHYTHM, Murmur (systolic 1/6 LSB) - GI/Abdominal Exam GI & Abdominal Exam: Soft, Normal Bowel Sounds - Extremities Exam Extremities Exam: Tenderness (and redness distal dorsum R foot, R hip C/D/I, dry scab on heels) - Back Exam Back Exam: NORMAL INSPECTION - Neurological Exam Neurological Exam: Alert, Oriented x3 Additional comments: Weakness LUE, rest no focal motor/sensory deficit. - Psychiatric Exam Psychiatric exam: Anxious - Skin Skin Exam: Warm Assessment and Plan (1) Deep vein thrombosis (DVT) of right lower extremity Status: Acute (2) Cellulitis of foot Status: Acute (3) Hyperglycemia Status: Acute (4) Diabetes mellitus Status: Chronic (5) HTN (hypertension) Status: Chronic (6) Status post total hip replacement, right Status: Chronic (7) Anxiety Status: Chronic - Assessment and Plan (Free Text) Plan: Pt seen by Orthopedic yesterday and cleared to have MRI R foot s/p THR. Continue Vanco , Zosyn and rest of Tx.
[2017-11-28] MEDS: Insulin Detemir 100 Units/ml Inj SC SCH (21:11)
[2017-11-29] MEDS: Piperacillin/Tazobact 3.375 GM in Sodium Chloride 0.9% 100 ML IVPB SCH ×4 (06:48→23:47)
[2017-11-29] MEDS: Insulin Lispro (humaLOG) 100 Units/ml Inj SC SCH ×3 (07:48→16:30)
[2017-11-29] MEDS: Lidocaine 5% Patch TD SCH (08:40)
[2017-11-29] MEDS: Insulin Detemir 100 Units/ml Inj SC SCH (21:39)
[2017-11-30] MEDS: Piperacillin/Tazobact 3.375 GM in Sodium Chloride 0.9% 100 ML IVPB SCH ×3 (05:31→17:15)
--- NOTE | 2017-11-30 08:14 | CP.PCM.PN ---
Subjective - Date & Time of Evaluation Date of Evaluation: 11/30/17 Time of Evaluation: 08:14 - Subjective Subjective: Podiatry Consult Note- Dr. Kennedy 82 y.o female seen and evaluated at bedside this morning for painful right foot. Reports that the pain has somewhat improves during hospital stay but it still occasionally escalante near her big toe joint and on the bottom of the foot. Denies F/C/N/V/CP/SOB. Says her foot is less red today. Objective - Vital Signs/Intake and Output Vital Signs (last 24 hours): Temp Pulse Resp BP Pulse Ox 97.9 F 70 20 165/71 H 98 11/29/17 22:07 11/29/17 22:07 11/29/17 22:07 11/29/17 22:07 11/29/17 22:07 - Medications Medications: Current Medications Acetaminophen (Tylenol 325mg Tab) 650 mg PO Q4 PRN PRN Reason: Pain, moderate (4-7) Last Admin: 11/25/17 19:21 Dose: 650 mg Alprazolam (Xanax) 0.5 mg PO Q12 [facility] Last Admin: 11/29/17 21:36 Dose: 0.5 mg Apixaban (Eliquis) 5 mg PO BID@0500,1700 [facility] PRN Reason: Protocol Last Admin: 11/30/17 05:31 Dose: 5 mg Aspirin (Ecotrin) 81 mg PO DAILY [facility] Last Admin: 11/29/17 08:45 Dose: 81 mg Carvedilol (Coreg) 3.125 mg PO BID [facility] Last Admin: 11/29/17 17:46 Dose: 3.125 mg Clotrimazole (Lotrimin 1% Cream) 1 applic TOP BID [facility] Last Admin: 11/29/17 17:49 Dose: 1 applic Dicyclomine HCl (Bentyl) 10 mg PO TID PRN PRN Reason: Other Last Admin: 11/29/17 08:49 Dose: 10 mg Fluconazole (Diflucan) 100 mg PO DAILY [facility] PRN Reason: Protocol Last Admin: 11/29/17 08:43 Dose: 100 mg Vancomycin HCl 1 gm/ Sodium (Chloride) 250 mls @ 166.667 mls/hr IVPB Q12@0500, 1700 [facility] PRN Reason: Protocol Stop: 04/04/18 17:01 Last Admin: 11/30/17 05:37 Dose: 166.667 mls/hr Piperacillin Sod/Tazobactam (Sod 3.375 gm/ Sodium Chloride) 100 mls @ 100 mls/ hr IVPB 0600,1200,1800,0000 [facility] PRN Reason: Protocol Stop: 12/02/17 18:01 Last Admin: 11/30/17 05:31 Dose: 100 mls/hr Insulin Detemir (Levemir) 8 units SC HS [facility] Last Admin: 11/29/17 21:39 Dose: 8 units Insulin Human Lispro (Humalog) 12 units SC TIDAC [facility] Last Admin: 11/29/17 16:30 Dose: 12 u Lidocaine (Lidoderm) 1 ea TD DAILY [facility] Last Admin: 11/29/17 08:40 Dose: 1 ea Losartan Potassium (Cozaar) 50 mg PO DAILY [facility] Last Admin: 11/29/17 08:44 Dose: 50 mg Tramadol HCl (Ultram) 50 mg PO Q6 PRN PRN Reason: Pain, moderate (4-7) Last Admin: 11/29/17 17:59 Dose: 50 mg - Constitutional Appears: Well, Non-toxic, No Acute Distress - Extremities Exam Additional comments: RLE focused examination: Vasc: DP and PT weakly palpable, temperature gradient WNL, no increase warmth noted to the right LE, CFT delayed but present x 10 digits Ortho: moderate pain with palpation to the R foot below the ankle, no pain with palpation to the calf Neuro: gross and protective sensation diminished Derm: calluses at the plantar heel measuring approximately 1 x 1 cm, no underlying ulceration appreciated, no open lesions. Diffuse erythema noted to the entire right foot distal to ankle joint. Annular scaling noted to plantar foot B/L - Neurological Exam Neurological Exam: Alert, Awake, Oriented x3 - Psychiatric Exam Psychiatric exam: Normal Affect, Normal Mood Assessment and Plan - Assessment and Plan (Free Text) Assessment: 82 y.o female with right lower extremity cellulitis with tinea pedis Plan: Patient examined and evaluated Discussed plan in detail with attending Dr. Kennedy Labs, charts, vitals reviewed U/S reviewed- DVT of right LE Foot X-ray no fracture noted, cystic changes noted to proximal right 3rd metatarsal 24h uric acid WNL MRI (-) for any acute osseous changes or OM Continue Lotrimin lotion to B/L plantar feet for tinea pedis Cont IV abx for cellulitis Patient stable per podiatry standpoint with resolving cellulitis Patient can follow up with Dr. Kennedy as an outpatient within 1 week upon discharge
--- NOTE | 2017-11-30 08:22 | CP.PCM.PN ---
Subjective - Date & Time of Evaluation Date of Evaluation: 11/30/17 Time of Evaluation: 08:22 Objective - Vital Signs/Intake and Output Vital Signs (last 24 hours): Temp Pulse Resp BP Pulse Ox 97.9 F 70 20 165/71 H 98 11/29/17 22:07 11/29/17 22:07 11/29/17 22:07 11/29/17 22:07 11/29/17 22:07 - Medications Medications: Current Medications Acetaminophen (Tylenol 325mg Tab) 650 mg PO Q4 PRN PRN Reason: Pain, moderate (4-7) Last Admin: 11/25/17 19:21 Dose: 650 mg Alprazolam (Xanax) 0.5 mg PO Q12 [facility] Last Admin: 11/29/17 21:36 Dose: 0.5 mg Apixaban (Eliquis) 5 mg PO BID@0500,1700 [facility] PRN Reason: Protocol Last Admin: 11/30/17 05:31 Dose: 5 mg Aspirin (Ecotrin) 81 mg PO DAILY [facility] Last Admin: 11/29/17 08:45 Dose: 81 mg Carvedilol (Coreg) 3.125 mg PO BID [facility] Last Admin: 11/29/17 17:46 Dose: 3.125 mg Clotrimazole (Lotrimin 1% Cream) 1 applic TOP BID [facility] Last Admin: 11/29/17 17:49 Dose: 1 applic Dicyclomine HCl (Bentyl) 10 mg PO TID PRN PRN Reason: Other Last Admin: 11/29/17 08:49 Dose: 10 mg Fluconazole (Diflucan) 100 mg PO DAILY [facility] PRN Reason: Protocol Last Admin: 11/29/17 08:43 Dose: 100 mg Vancomycin HCl 1 gm/ Sodium (Chloride) 250 mls @ 166.667 mls/hr IVPB Q12@0500, 1700 [facility] PRN Reason: Protocol Stop: 12/02/17 17:01 Last Admin: 11/30/17 05:37 Dose: 166.667 mls/hr Piperacillin Sod/Tazobactam (Sod 3.375 gm/ Sodium Chloride) 100 mls @ 100 mls/ hr IVPB 0600,1200,1800,0000 [facility] PRN Reason: Protocol Stop: 12/02/17 18:01 Last Admin: 11/30/17 05:31 Dose: 100 mls/hr Insulin Detemir (Levemir) 8 units SC HS [facility] Last Admin: 11/29/17 21:39 Dose: 8 units Insulin Human Lispro (Humalog) 12 units SC TIDAC [facility] Last Admin: 11/29/17 16:30 Dose: 12 u Lidocaine (Lidoderm) 1 ea TD DAILY [facility] Last Admin: 11/29/17 08:40 Dose: 1 ea Losartan Potassium (Cozaar) 50 mg PO DAILY [facility] Last Admin: 11/29/17 08:44 Dose: 50 mg Tramadol HCl (Ultram) 50 mg PO Q6 PRN PRN Reason: Pain, moderate (4-7) Last Admin: 11/29/17 17:59 Dose: 50 mg
[2017-11-30] MEDS: Lidocaine 5% Patch TD SCH (09:04)
[2017-11-30] MEDS: Insulin Lispro (humaLOG) 100 Units/ml Inj SC SCH ×3 (09:06→17:13)
--- NOTE | 2017-11-30 17:03 | CP.PCM.PN ---
Subjective - Date & Time of Evaluation Date of Evaluation: 11/30/17 - Subjective Subjective: F/U DVT/ Cellulitis R foot. Pain R foot improved Objective - Vital Signs/Intake and Output Vital Signs (last 24 hours): Temp Pulse Resp BP Pulse Ox 97.0 F L 65 20 151/62 H 100 11/30/17 16:41 11/30/17 16:41 11/30/17 16:41 11/30/17 16:41 11/30/17 16:41 - Medications Medications: Current Medications Acetaminophen (Tylenol 325mg Tab) 650 mg PO Q4 PRN PRN Reason: Pain, moderate (4-7) Last Admin: 11/25/17 19:21 Dose: 650 mg Apixaban (Eliquis) 5 mg PO BID@0500,1700 [facility] PRN Reason: Protocol Last Admin: 11/30/17 05:31 Dose: 5 mg Aspirin (Ecotrin) 81 mg PO DAILY [facility] Last Admin: 11/30/17 09:06 Dose: 81 mg Carvedilol (Coreg) 3.125 mg PO BID [facility] Last Admin: 11/30/17 09:06 Dose: 3.125 mg Clotrimazole (Lotrimin 1% Cream) 1 applic TOP BID [facility] Last Admin: 11/30/17 09:04 Dose: 1 applic Dicyclomine HCl (Bentyl) 10 mg PO TID PRN PRN Reason: Other Last Admin: 11/30/17 09:06 Dose: 10 mg Piperacillin Sod/Tazobactam (Sod 3.375 gm/ Sodium Chloride) 100 mls @ 100 mls/ hr IVPB 0600,1200,1800,0000 [facility] PRN Reason: Protocol Stop: 12/02/17 18:01 Last Admin: 11/30/17 12:24 Dose: 100 mls/hr Insulin Detemir (Levemir) 8 units SC HS [facility] Last Admin: 11/29/17 21:39 Dose: 8 units Insulin Human Lispro (Humalog) 12 units SC TIDAC [facility] Last Admin: 11/30/17 12:25 Dose: 12 u Lidocaine (Lidoderm) 1 ea TD DAILY [facility] Last Admin: 11/30/17 09:04 Dose: 1 ea Losartan Potassium (Cozaar) 50 mg PO DAILY [facility] Last Admin: 11/30/17 09:06 Dose: 50 mg Tramadol HCl (Ultram) 50 mg PO Q6 PRN PRN Reason: Pain, moderate (4-7) Last Admin: 11/29/17 17:59 Dose: 50 mg - Constitutional Appears: Chronically Ill - Head Exam Head Exam: NORMAL INSPECTION - Eye Exam Eye Exam: PERRL - ENT Exam ENT Exam: Normal Exam - Neck Exam Neck Exam: Normal Inspection - Respiratory Exam Respiratory Exam: Decreased Breath Sounds - Cardiovascular Exam Cardiovascular Exam: REGULAR RHYTHM, Murmur (systolic 1/6 LSB) - GI/Abdominal Exam GI & Abdominal Exam: Soft, Normal Bowel Sounds - Extremities Exam Extremities Exam: Tenderness (tenderness and redness greatly decreased distal dorsum R foot, dry scab on heels) - Back Exam Back Exam: NORMAL INSPECTION - Neurological Exam Neurological Exam: Alert, CN II-XII Intact, Oriented x3 Additional comments: Weakness LUE, rest of extremities no focal motor/sensory deficit. - Psychiatric Exam Psychiatric exam: Anxious - Skin Skin Exam: Warm Assessment and Plan (1) Deep vein thrombosis (DVT) of right lower extremity Status: Acute (2) Cellulitis of foot Status: Acute (3) Hyperglycemia Status: Acute (4) Diabetes mellitus Status: Chronic (5) HTN (hypertension) Status: Chronic (6) Status post total hip replacement, right Status: Chronic (7) Anxiety Status: Chronic - Assessment and Plan (Free Text) Plan: continue Vanco , Zosyn , Eliquis and rest of treatment , f/u MRI R foot
[2017-11-30] MEDS: Insulin Detemir 100 Units/ml Inj SC SCH (21:41)
[2017-12-01] MEDS: Piperacillin/Tazobact 3.375 GM in Sodium Chloride 0.9% 100 ML IVPB SCH ×4 (05:30→21:04)
[2017-12-01] MEDS: Insulin Lispro (humaLOG) 100 Units/ml Inj SC SCH ×3 (06:50→17:26)
[2017-12-01] MEDS: Lidocaine 5% Patch TD SCH (08:49)
--- NOTE | 2017-12-01 15:04 | CP.PCM.PN ---
Subjective - Date & Time of Evaluation Date of Evaluation: 12/01/17 Time of Evaluation: 13:40 - Subjective Subjective: pain R foot improved , ambulating with a walker with PT Objective - Vital Signs/Intake and Output Vital Signs (last 24 hours): Temp Pulse Resp BP Pulse Ox 98.1 F 67 20 186/86 H 97 12/01/17 10:11 12/01/17 13:32 12/01/17 10:11 12/01/17 10:11 12/01/17 13:32 - Medications Medications: Current Medications Acetaminophen (Tylenol 325mg Tab) 650 mg PO Q4 PRN PRN Reason: Pain, moderate (4-7) Last Admin: 11/25/17 19:21 Dose: 650 mg Alprazolam (Xanax) 0.5 mg PO Q12 [facility] Last Admin: 12/01/17 08:51 Dose: 0.5 mg Apixaban (Eliquis) 5 mg PO BID@0500,1700 [facility] PRN Reason: Protocol Last Admin: 12/01/17 05:30 Dose: 5 mg Aspirin (Ecotrin) 81 mg PO DAILY [facility] Last Admin: 12/01/17 08:49 Dose: 81 mg Carvedilol (Coreg) 3.125 mg PO BID [facility] Last Admin: 12/01/17 08:49 Dose: 3.125 mg Clotrimazole (Lotrimin 1% Cream) 1 applic TOP BID [facility] Last Admin: 12/01/17 08:49 Dose: 1 applic Dicyclomine HCl (Bentyl) 10 mg PO TID PRN PRN Reason: Other Last Admin: 12/01/17 08:48 Dose: 10 mg Piperacillin Sod/Tazobactam (Sod 3.375 gm/ Sodium Chloride) 100 mls @ 100 mls/ hr IVPB Q6 [facility] PRN Reason: Protocol Last Admin: 12/01/17 09:43 Dose: 100 mls/hr Vancomycin HCl 1 gm/ Sodium (Chloride) 250 mls @ 166.667 mls/hr IVPB Q12H [facility] PRN Reason: Protocol Last Admin: 12/01/17 06:35 Dose: 166.667 mls/hr Insulin Detemir (Levemir) 8 units SC HS [facility] Last Admin: 11/30/17 21:41 Dose: 8 units Insulin Human Lispro (Humalog) 12 units SC TIDAC [facility] Last Admin: 12/01/17 11:49 Dose: 12 u Lidocaine (Lidoderm) 1 ea TD DAILY [facility] Last Admin: 12/01/17 08:49 Dose: Not Given Losartan Potassium (Cozaar) 50 mg PO DAILY [facility] Last Admin: 12/01/17 08:49 Dose: 50 mg Tramadol HCl (Ultram) 50 mg PO Q6 PRN PRN Reason: Pain, moderate (4-7) Last Admin: 11/29/17 17:59 Dose: 50 mg - Constitutional Appears: No Acute Distress - Head Exam Head Exam: NORMAL INSPECTION - Eye Exam Eye Exam: PERRL - ENT Exam ENT Exam: Normal Exam - Neck Exam Neck Exam: Normal Inspection - Respiratory Exam Respiratory Exam: Clear to Ausculation Bilateral - Cardiovascular Exam Cardiovascular Exam: REGULAR RHYTHM - GI/Abdominal Exam GI & Abdominal Exam: Soft, Normal Bowel Sounds - Extremities Exam Additional comments: redness , tenderness greatly decreased distal dorsum R foot , heel mild tenderness - Back Exam Back Exam: NORMAL INSPECTION - Neurological Exam Neurological Exam: Alert, Awake, CN II-XII Intact Additional comments: weakness LUE - Psychiatric Exam Psychiatric exam: Anxious - Skin Skin Exam: Warm Assessment and Plan (1) Deep vein thrombosis (DVT) of right lower extremity Status: Acute (2) Cellulitis of foot Assessment & Plan: continue Darlene Davisonn , PT Status: Acute (3) Hyperglycemia Status: Acute (4) Diabetes mellitus Status: Chronic (5) HTN (hypertension) Status: Chronic (6) Status post total hip replacement, right Status: Chronic (7) Anxiety Status: Chronic (8) History of CVA (cerebrovascular accident) Status: Chronic - Assessment and Plan (Free Text) Plan: Continue Vanco Zosyn, MRI R foot reviewed f/u Podiatric and ID consult
[2017-12-01] MEDS: Insulin Detemir 100 Units/ml Inj SC SCH (21:06)
[2017-12-02] MEDS: Piperacillin/Tazobact 3.375 GM in Sodium Chloride 0.9% 100 ML IVPB SCH ×2 (05:00→11:44)
[2017-12-02 08:13] VITALS: BP 159/70; PULSE 70; TEMP 97.4; O2SAT 100
[2017-12-02] MEDS: Insulin Lispro (humaLOG) 100 Units/ml Inj SC SCH ×2 (08:32→11:40)
[2017-12-02] MEDS: Lidocaine 5% Patch TD SCH (08:42)
--- NOTE | 2017-12-02 11:40 | CP.PCM.CON ---
History of Present Illness - History of Present Illness History of Present Illness: Infectious Disease Consultation Note- asked to see this patient at the request of for Right foot cellulitis. HPI- Patient is a pleasant 82 year old female with pmho f DM II, CVA, UE arterial thrombus, who was admitted to [facility] on 11/21/2017 for right foot pain. as per medical notes-patietn had Right THR 08-18-17 [facility] [place] , Patient was tranferred to [facility] 08-20-17 for Rehab. and DD home 09-02-17 , there after at home She developed ulcers R L heel with great difficulty with Therapy at home , heels ulcers were treated at home with local care, Patient was also treated with Augmentin for C-S positive the ulcers gradually healed and according to Patient and Patient's daughter at bedside ulcers healed earlier this week , also She took Augmentin up to the week of admission to [facility]. patient has been seen by podiatry and per podiatry notes no open wounds or any discharge on this admission, only old dried right heel callus. patient has been on keflex since this admission as per PMD as also found to have RLE DVT on this admission adn was treated with anticoagulants for that by her PMD. she is switched to vanco and zosyn today by her PMD based on MRI result. I'm now asked to see the patient because pmd wants to d/c patient home, however , she had Right foot MRI on 11/28/2017 that did not report any osseous problems but was read as plantar subcutaneous soft tissue edema or cellulitis . patient denies any fever or chills and explains the foot looks much better and the redness has resolved, she does mention, however, that she has pain in the plantar aspect of her right foot and states the foot gets red when she places it on the floor and not elevated. Worsening symptoms: Showing DVT RLE on Ext [place]-S. Aggravated factor: Movements/exercise. Pt denied: Fall, fever, chills, n/v/d, abdominal pain, CP, palpitations, syncope , SOB,cough, sick contact, recent travel out of [place]. 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 pain, denies any nausea or vomiting, denies any dyaurea, denies any diarrhea c/o pian in the plantar aspect of her right foot but the open wound that she had has healed , no discharge, no edema. Past Patient History - Infectious Disease Hx of Infectious Diseases: None - Tetanus Immunizations Tetanus Immunization: Unknown - Past Medical History & Family History Past Medical History?: Yes - Past Social History Smoking Status: Never Smoked Alcohol: None Drugs: Denies Home Situation {Lives}: With Family - CARDIAC Hx Cardiac Disorders: Yes Hx Hypercholesterolemia: Yes Hx Hypertension: Yes - PULMONARY Hx Respiratory Disorders: Yes Other/Comment: Hx Allergic Rhinitis - NEUROLOGICAL Hx Neurological Disorder: Yes HX Cerebrovascular Accident: Yes - HEENT Hx HEENT Problems: Yes Hx Cataracts: Yes Other/Comment: Allergic Rhinitis - RENAL Hx Chronic Kidney Disease: No Other/Comment: Recurrent UTI's - ENDOCRINE/METABOLIC Hx Endocrine Disorders: Yes Hx Diabetes Mellitus Type 2: Yes - HEMATOLOGICAL/ONCOLOGICAL Hx Blood Disorders: Yes (DVT) Other/Comment: Arterial embolus LUE with embolectomy L subclavian 2016 - INTEGUMENTARY Hx Dermatological Problems: No - MUSCULOSKELETAL/RHEUMATOLOGICAL Hx Musculoskeletal Disorders: Yes Hx Arthritis: Yes - GASTROINTESTINAL Hx Gastrointestinal Disorders: Yes Hx Gastritis: Yes (Hiatus Hernia) - GENITOURINARY/GYNECOLOGICAL Hx Genitourinary Disorders: Yes (UTI recurrent) - PSYCHIATRIC Hx Psychophysiologic Disorder: Yes Hx Anxiety: Yes Hx Substance Use: No - SURGICAL HISTORY Hx Cholecystectomy: Yes Hx Orthopedic Surgery: Yes (Right THR) Other/Comment: LUE Arterial Embolectomy 2016 - ANESTHESIA Hx Anesthesia: Yes Hx Anesthesia Reactions: No Hx Malignant Hyperthermia: No Has any member of the family had a problem w/ anesthesia?: No Meds Allergies/Adverse Reactions: Allergies Allergy/AdvReac Type Severity Reaction Status Date / Time No Known Allergies Allergy Verified 11/21/17 09:55 - Medications Medications: Current Medications Acetaminophen (Tylenol 325mg Tab) 650 mg PO Q4 PRN PRN Reason: Pain, moderate (4-7) Last Admin: 11/25/17 19:21 Dose: 650 mg Alprazolam (Xanax) 0.5 mg PO Q12 [facility] Last Admin: 12/02/17 08:37 Dose: 0.5 mg Aspirin (Ecotrin) 81 mg PO DAILY [facility] Last Admin: 12/02/17 08:34 Dose: 81 mg Carvedilol (Coreg) 3.125 mg PO BID [facility] Last Admin: 12/02/17 08:34 Dose: 3.125 mg Clotrimazole (Lotrimin 1% Cream) 1 applic TOP BID [facility] Last Admin: 12/02/17 08:35 Dose: 1 applic Dicyclomine HCl (Bentyl) 10 mg PO TID PRN PRN Reason: Other Last Admin: 12/01/17 08:48 Dose: 10 mg Vancomycin HCl 1 gm/ Sodium (Chloride) 250 mls @ 166.667 mls/hr IVPB Q12@0500, 1700 [facility] PRN Reason: Protocol Last Admin: 12/02/17 04:21 Dose: 166.667 mls/hr Piperacillin Sod/Tazobactam (Sod 3.375 gm/ Sodium Chloride) 100 mls @ 100 mls/ hr IVPB 0600,1200,1800,0000 [facility] PRN Reason: Protocol Last Admin: 12/02/17 05:00 Dose: 100 mls/hr Insulin Detemir (Levemir) 8 units SC HS [facility] Last Admin: 12/01/17 21:06 Dose: 8 units Insulin Human Lispro (Humalog) 12 units SC TIDAC [facility] Last Admin: 12/02/17 08:32 Dose: 12 u Lidocaine (Lidoderm) 1 ea TD DAILY [facility] Last Admin: 12/02/17 08:42 Dose: Not Given Losartan Potassium (Cozaar) 50 mg PO DAILY [facility] Last Admin: 12/02/17 08:35 Dose: 50 mg Tramadol HCl (Ultram) 50 mg PO Q6 PRN PRN Reason: Pain, moderate (4-7) Last Admin: 11/29/17 17:59 Dose: 50 mg Physical Exam - Constitutional Appears: Non-toxic, No Acute Distress - Head Exam Head Exam: ATRAUMATIC - Eye Exam Eye Exam: EOMI - ENT Exam ENT Exam: Normal Oropharynx - Neck Exam Neck exam: Positive for: Full Rom - Respiratory Exam Respiratory Exam: Clear to Auscultation Bilateral, NORMAL BREATHING PATTERN - Cardiovascular Exam Cardiovascular Exam: RRR, +S1, +S2 - GI/Abdominal Exam GI & Abdominal Exam: Normal Bowel Sounds, Soft Additional comments: NT, ND - Extremities Exam Additional comments: no edema b/l LE Right plantar heel with dried callus, no discharge, no escahr no open ulcers anywhere on the right foot. no erythema no edema - Neurological Exam Neurological exam: Alert, Oriented x3 - Skin Additional comments: right hip THR surgical site clean/dry/intact no erythema Results - Vital Signs Recent Vital Signs: Last Vital Signs Temp 97.4 F L 12/02/17 08:12 Pulse 70 12/02/17 08:35 Resp 20 12/02/17 08:12 BP 159/70 H 12/02/17 08:35 Pulse Ox 100 12/02/17 08:12 - Labs Labs: Laboratory Results - last 24 hr 12/01/17 12/01/17 12/02/17 15:53 20:39 05:56 POC Glucose (mg/dL) 119 H 193 H 179 H 12/02/17 11:00 POC Glucose (mg/dL) 291 H Laboratory Results - last 72 hr 11/29/17 11/29/17 11/29/17 10:52 16:42 21:02 POC Glucose (mg/dL) 253 H 130 H 117 H 11/30/17 11/30/17 11/30/17 06:32 11:25 16:21 POC Glucose (mg/dL) 209 H 221 H 69 11/30/17 12/01/17 12/01/17 20:54 06:11 11:16 POC Glucose (mg/dL) 187 H 172 H 202 H 12/01/17 12/01/17 12/02/17 15:53 20:39 05:56 POC Glucose (mg/dL) 119 H 193 H 179 H 12/02/17 11:00 POC Glucose (mg/dL) 291 H Microbiology 11/21/17 14:01 Urine Urine Culture - Final MULTIPLE SPECIES. SUGGEST REPEAT SPECIMEN. 11/21/17 12:00 Blood Blood Culture - Final 11/21/17 12:00 Blood Gram Stain - Final NO GROWTH AFTER 5 DAYS TEST NOT PERFORMED 11/21/17 11:20 Blood Blood Culture - Final 11/21/17 11:20 Blood Gram Stain - Final NO GROWTH AFTER 5 DAYS TEST NOT PERFORMED Accession No. : [id number] Patient Name / ID : MEGHNA DAMON I / [id number] Exam Date : 11/28/2017 11:38:50 ( Approved ) Study Comment : Sex / Age : F / 82Y Creator : Sy Pichardo MD Dictator : Sy Pichardo MD Pals Nurse : Piece Dyeing Machine Tender : Sy Pichardo MD Approver2 : Report Date : 11/30/2017 15:35:39 My Comment : MRI right hindfoot History: Cellulitis. Evaluate for osteomyelitis. Comparison: X-ray dated 11/21/2017 Technique: Multi-echo multiplanar sequences were performed through the right hindfoot without the use of intravenous contrast. Findings: Reticulation and edema within the circumferential subcutaneous soft tissues suggestive for an underlying cellulitis. Plantar subcutaneous soft tissue edema versus cellulitis. Anterior extensor tendons are preserved. Mild tenosynovitis of the posterior tibial tendon. Remainder of the medial flexor tendons are preserved. Partial split tear of the peroneus brevis tendon at the level of the ankle mortise. Anterior and posterior tibiofibular ligaments are preserved. Anterior and posterior talofibular ligaments are preserved. Subchondral cyst formation seen at the bases of the 3rd and 4th metatarsal bones. 3 millimeter subchondral cyst formation seen within the lateral aspect of the navicular bone. Trace ankle joint effusion. Mild distal Achilles tendinopathy. Dorsal calcaneal spurring. Prominent plantar calcaneal spurring. Thickening of the plantar fascia measuring up to 9 millimeters suggestive for a mild plantar fascitis. 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 Degenerative changes noted at dorsal aspect of the talonavicular joint space. Degenerative changes with subchondral cyst formation noted at the anterior process of the calcaneus. Deltoid ligament is preserved. Impression: 1. Reticulation and edema within the circumferential subcutaneous soft tissues suggestive for an underlying cellulitis. 2. Plantar subcutaneous soft tissue edema versus cellulitis. 3. Mild tenosynovitis of the posterior tibial tendon. Remainder of the medial flexor tendons are preserved. 4. Partial split tear of the peroneus brevis tendon at the level of the ankle mortise. 5. Subchondral cyst formation seen at the bases of the 3rd and 4th metatarsal bones. 6. 3 millimeter subchondral cyst formation seen within the lateral aspect of the navicular bone. 7. Trace ankle joint effusion. 8. Mild distal Achilles tendinopathy. Dorsal calcaneal spurring. 9. Prominent plantar calcaneal spurring. Thickening of the plantar fascia measuring up to 9 millimeters suggestive for a mild plantar fascitis. 10. 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 11. Degenerative changes noted at dorsal aspect of the talonavicular joint space. 12. Degenerative changes with subchondral cyst formation noted at the anterior process of the calcaneus. These findings were preliminarily reported at 1:12 p.m. on 11/28/[address] Sanchez Cheng from [facility]. Accession No. : [id number] Patient Name / ID : MEGHNA DAMON I / [id number] Exam Date : 11/21/2017 11:41:39 ( Approved ) Study Comment : Sex / Age : F / 82Y Creator : Mikel Peters MD Dictator : Pals Nurse : Piece Dyeing Machine Tender : Mikel Peters MD Approver2 : Report Date : 11/21/2017 13:14:15 My Comment : PROCEDURE: Right lower extremity venous duplex Doppler. HISTORY: r/o dvt COMPARISON: None available. TECHNIQUE: Common femoral, superficial femoral, popliteal and posterior tibial veins were evaluated. Flow was assessed with color Doppler, compressibility, assessment of phasic flow and augmentation response. FINDINGS: COMMON FEMORAL VEIN: Unremarkable. SUPERFICIAL FEMORAL VEIN: Unremarkable. POPLITEAL VEIN: There is noncompressible thrombus within the right popliteal and right posterior tibial veins. POSTERIOR TIBIAL VEIN: Unremarkable. OTHER FINDINGS: None. IMPRESSION: Noncompressible thrombus within the right popliteal and right posterior tibial veins. Assessment & Plan (1) History of CVA (cerebrovascular accident) Status: Chronic (2) Cellulitis of right lower extremity Status: Acute Priority: High (3) Diabetes mellitus Status: Chronic Priority: High (4) History of arterial embolism Status: Chronic Priority: Medium - Assessment and Plan (Free Text) Assessment: A/P- 82 year old female with multiple medical conditions including DM II, UE arterial thrombus, CVA and right THR who apparently had right foot open draining ulcers which have been treated as outpatient by local wound care and augmentin and no evidence of any open wounds at this time. Right foot cellulitis no longer present. no evidence of OM on MRI report. No evidence of cellulitis on exam today. pt. most likely has some PVD in the LE. plan- advise to keep feet elevated while supine or sitting position. advise to f/u with podiatry and pmd as outpatient in 1 week. callus care as per podiatry rec. advise if patient is being d/c to d/c home on oral bactrim DS BID for 10-14 days. advised pt. if she develops any rash or allergy to immediately notify her pmd and stop the antibiotic. DVT management as per pmd. Pt. verbalizes full understanding of all above and agrees with above plan of care. All above was also d/w . Thank you for allowing me to take part in the care of this patient.
== END 2017-12-02 14:35 | disposition home health service (06) | DRG 603 ==
LOC: H.TCU 15:42
PROVIDERS: ADMIT Internal Medicine Pulmonary Disease; ATTEND Internal Medicine Pulmonary Disease
PROC: 3E03329 Introduction of Other Anti-infective into Peripheral Vein, Percutaneous Approach (ICD-10-PCS; principal; 2017-11-24)
PROC: F07Z9FZ Gait Training/Functional Ambulation Treatment using Assistive, Adaptive, Supportive or Protective Equipment (ICD-10-PCS; 2017-11-24)
PROC: F08Z4FZ Home Management Treatment using Assistive, Adaptive, Supportive or Protective Equipment (ICD-10-PCS; 2017-11-24)
PROC: F07L6FZ Therapeutic Exercise Treatment of Musculoskeletal System - Lower Back / Lower Extremity using Assistive, Adaptive, Supportive or Protective Equipment (ICD-10-PCS; 2017-11-25)
DX: L03.115 Cellulitis of right lower limb (principal); I69.359 Hemiplegia and hemiparesis following cerebral infarction affecting unspecified side; I82.401 Acute embolism and thrombosis of unspecified deep veins of right lower extremity; L97.519 Non-pressure chronic ulcer of other part of right foot with unspecified severity; E11.65 Type 2 diabetes mellitus with hyperglycemia; E11.621 Type 2 diabetes mellitus with foot ulcer; E11.51 Type 2 diabetes mellitus with diabetic peripheral angiopathy without gangrene; B35.3 Tinea pedis; I10 Essential (primary) hypertension; E78.00 Pure hypercholesterolemia, unspecified; M77.31 Calcaneal spur, right foot; F41.9 Anxiety disorder, unspecified; M19.90 Unspecified osteoarthritis, unspecified site; Z96.641 Presence of right artificial hip joint; Z87.440 Personal history of urinary (tract) infections